=== PATIENT | female | born 1970 | race Caucasian/White ===

== ENCOUNTER 2018-03-22 14:06 | Emergency (ER) | payer OTHER, MEDICAID, SELFPAY ==
[2018-03-22 14:08] VITALS: BP 128/80; PULSE 91; RESP 16; TEMP 37.2; O2SAT 100
--- NOTE | 2018-03-22 14:18 | ED_ITS ---
HPI - Back Pain/Injury <MARGUERITE Bell - Last Filed: 03/22/18 22:07> General Chief Complaint: Back Pain/Injury Stated Complaint: SLIPPED DOWN STAIRS Time Seen by Provider: 03/22/18 14:18 Source: patient Mode of arrival: ambulatory History of Present Illness HPI Narrative: 47-year-old female with history of chronic hip pain here for complaint of lower back pain and bilateral hip pain status post falling and slipping on a couple of steps yesterday. She states that she was carrying a laundry basket full of dirty laundry when she slipped on a step causing her to slip off of 2 steps landing on her back side causing pain to her lower back and hips. She is able to ambulate into the emergency room although she does state that ambulating does cause pain. Decreased pain with decreased amount of motion to the lower extremities. She denies any loss of bladder or bowel control. She has good sensation to bilateral legs. No other injuries or concerns. MD Complaint: back pain and fall Related Data Home Medications Medication Instructions Recorded Confirmed cyclobenzaprine 10 mg PO HS PRN 03/22/18 03/22/18 gabapentin [Neurontin] 3 - 4 cap PO BEDTIME PRN 03/22/18 03/22/18 lidocaine [Lidoderm] 1 patch TOPICAL Q12H MDD pain, 03/22/18 03/22/18 moderate Previous Rx's Medication Instructions Recorded tramadol 50 mg tablet 50 mg PO Q6HP PRN #100 tab 02/22/18 hydrocodone-acetaminophen 1 tab PO Q6H PRN #10 tab 03/22/18 Allergies Allergy/AdvReac Type Severity Reaction Status Date / Time citalopram [CITALOPRAM] AdvReac Mild Migraines Verified 03/22/18 14:11 Review of Systems <MARGUERITE Bell - Last Filed: 03/22/18 22:07> Eyes Denies change in vision, Denies eye discharge, Denies irritation and Denies loss of vision ENT Ears, Nose, Mouth, and Throat: Denies change in voice, Denies neck pain and Denies sore throat Cardiovascular Denies chest pain, Denies irregular heart rhythm, Denies lightheadedness, Denies palpitations, Denies dyspnea, Denies dyspnea on exertion and Denies orthopnea Respiratory Denies cough, Denies dyspnea, Denies dyspnea on exertion and Denies wheezing Gastrointestinal Gastrointestinal: Denies abdominal pain, Denies change in bowel habits, Denies diarrhea, Denies nausea and Denies vomiting Genitourinary Denies hematuria, Denies flank pain, Denies urinary incontinence and Denies urinary urgency Musculoskeletal Denies neck pain Comments: Pain to left lumbar paraspinals and bilateral hip status post fall Integumentary/Breasts Denies pruritus, Denies erythema, Denies rash and Denies wounds Neurologic Denies confusion and Denies loss of vision Psychiatric Denies anxiety, Denies confusion, Denies depression, Denies homicidal ideation and Denies suicidal ideation Endocrine Denies palpitations Hematologic/Lymphatic Denies easy bruising Allergic/Immunologic Denies wheezing Exam <MARGUERITE Bell - Last Filed: 03/22/18 22:07> Initial Vital Signs Initial Vital Signs: Vital Signs Temperature 99 F 03/22/18 14:08 Pulse Rate 91 H 03/22/18 14:08 Respiratory Rate 16 03/22/18 14:08 Blood Pressure 128/80 H 03/22/18 14:08 Pulse Oximetry 100 03/22/18 14:08 Const General: cooperative and well developed Nutritional Appearance: well nourished Orientation: alert, awake, oriented x3 and not confused [facility] Mouth: oral mucosae normal and moist mucous membranes Eyes Conjunctivae: conjunctivae normal Sclera: sclerae normal Pupils: PERRL EOM: EOM intact bilaterally Neck Neck: normal visual inspection, trachea midline, No lymphadenopathy, No midline deformity and No JVD Lymphatic: No lymphedema Chest Chest: normal inspection of the chest Resp Effort & Inspection: normal respiratory effort, able to speak in complete sentences, no respiratory distress and no use of accessory muscles Auscultation: clear to auscultation bilaterally, no rales, no rhonchi and no wheezes Cardio Rate: regular rate Rhythm: regular rhythm Heart Sounds: no click, no gallops, no murmurs and no rubs GI Inspection: non-distended Palpation: soft, no hepatosplenomegaly, No guarding, No pulsatile mass and No tender Auscultation: normal bowel sounds Back/Spine/Pelvis Other: Tenderness on palpation to the left lumbar paraspinals. Slight midline tenderness. No signs of trauma no deformities. Distal CMS is intact Skin General: no rashes or lesions noted, No jaundice and No petechiae Extrem Other: Pain to bilateral lateral hips. No signs of trauma. Distal CMS is intact <Oziel Berg DO - Last Filed: 03/23/18 08:05> Initial Vital Signs Initial Vital Signs: Vital Signs Temperature 99 F 03/22/18 14:08 Pulse Rate 91 H 03/22/18 14:08 Respiratory Rate 16 03/22/18 14:08 Blood Pressure 128/80 H 03/22/18 14:08 Pulse Oximetry 100 03/22/18 14:08 Course <MARGUERITE Bell - Last Filed: 03/22/18 22:07> Orders Ordered: Discontinued Medications Hydrocodone Bitart/Acetaminophen ([place] 5/325) 2 tab PO NOW ONE Stop: 03/22/18 14:59 Last Admin: 03/22/18 15:16 Dose: 2 tab Vital Signs - 8 hr 03/22/18 14:08 03/22/18 15:24 Temperature 99 F 97.5 F L Pulse Rate 91 H 73 Respiratory Rate 16 16 Blood Pressure 128/80 H Blood Pressure [Left Arm] 125/79 H Pulse Oximetry 100 100 <Oziel Berg DO - Last Filed: 03/23/18 08:05> Orders Ordered: Discontinued Medications Hydrocodone Bitart/Acetaminophen ([place] 5/325) 2 tab PO NOW ONE Stop: 03/22/18 14:59 Last Admin: 03/22/18 15:16 Dose: 2 tab Vital Signs - 8 hr 03/22/18 14:08 03/22/18 15:24 Temperature 99 F 97.5 F L Pulse Rate 91 H 73 Respiratory Rate 16 16 Blood Pressure 128/80 H Blood Pressure [Left Arm] 125/79 H Pulse Oximetry 100 100 MDM - Back Pain/Injury <MARGUERITE Bell - Last Filed: 03/22/18 22:07> Imaging Data hip and pelvis: Radiologist's impression: PROCEDURE: XR HIP W PEL IF DONE BILAT 2V INDICATIONS: Bilateral hip pain status post fall on stairs TECHNIQUE: AP pelvis with lateral view(s) of the bilateral hip(s). COMPARISON: [facility], CR, PELVIS WITH BILATERAL HIPS, 12/21/2014, 16:34. FINDINGS: Bones: No fractures or dislocations. Pelvic ring appears intact. No suspicious bony lesions. Minimal early degenerative change. Soft tissues: The visualized bowel gas pattern is normal. No suspicious soft tissue calcifications. IMPRESSION: No visualized acute fracture or dislocation. However, if clinical concern and/or pain persist, short interval imaging followup in 7-10 days is recommended , as occult injury cannot be definitively excluded. Dictated by: Consuelo Bruce M.D. on 03/22/2018 at 15:12 Approved by: Consuelo Bruce M.D. on 03/22/2018 at 15:14 lumbar spine: Radiologist's impression: PROCEDURE: CT LUMBAR SPINE WO CON INDICATIONS: Lower back pain status fall on stairs TECHNIQUE: Noncontrast 3 mm thick sections acquired from the T12 level to the sacrum. Sagittal and coronal reformats were constructed. For radiation dose reduction, the following was used: automated exposure control. COMPARISON: [facility], CR, L-SPINE 2-3 VIEWS, 08/19/2010, 10:21. [facility], MR, L-SPINE WITHOUT CONTRAST, 06/24/2009, 13:46. [facility], CR, L-SPINE 2- 3 VIEWS, 06/08/2009, 16:56. FINDINGS: Image quality: Excellent. Bones: There is trace retrolisthesis of L2 on L3, L3 on L4. Minimal multilevel disc space narrowing is present. There is no visualized fracture or dislocation. Mild multilevel disc bulges are present throughout the lumbar spine. There is moderate spinal stenosis at L2-3, moderate to severe L3-4, L4-5. Minimal left foraminal narrowing is present at L2-3, mild left L3-4, moderate bilateral L4-5, mild bilateral L5- S1. Multilevel ligamentum flavum and mild facet hypertrophy are present. Soft tissues: No retroperitoneal masses or hematomas. Visualized aorta is normal in caliber. IMPRESSION: Degenerative changes as noted above. No visualized acute osseous abnormality. Dictated by: Consuelo Bruce M.D. on 03/22/2018 at 15:20 Approved by: Consuelo Bruce M.D. on 03/22/2018 at 15:40 MDM Narrative Medical decision making narrative: Bilateral x-rays of the hip and pelvis along with CT of the lumbar spine was negative for any acute fractures. Signs and symptoms presents as sprain/strain of lower back and hips. [id number] ibuprofen as needed for any discomfort. Small amount of [place] is prescribed for breakthrough pain. Follow up with primary care provider next week. For any worsening symptoms return to the emergency room. Discharge Plan Departure Patient Disposition: Home, Self-Care Clinical Impression: Hip pain, bilateral, Lower back pain Discharge Date/Time: 03/22/18 16:15 Interventions: ED Discharge Assessment Last Done: 03/22/18 16:12 Instructions: DI for Hip Pain Activity Restrictions/Additional Instructions: Bilateral x-rays of the hip and pelvis along with CT of the lumbar spine was negative for any acute fractures. Degenerative changes are seen in both hips and lower back Signs and symptoms presents as sprain/strain of lower back and hips. [id number] ibuprofen as needed for any discomfort. Small amount of [place] is prescribed for breakthrough pain. Follow up with primary care provider next week. Repeat images in 7-10 days if still having pain to rule out occult fracture. For any worsening symptoms return to the emergency room. Prescriptions: New hydrocodone-acetaminophen 5-325 mg tablet 1 tab PO Q6H PRN (Reason: pain) Qty: 10 RF: 0 No Action tramadol 50 mg tablet 50 mg PO Q6HP PRN (Reason: pain) Qty: 100 RF: 1 cyclobenzaprine 10 MG tablet 10 mg PO HS PRN (Reason: pain) RF: 0 lidocaine [Lidoderm] 1 EACH adhesive patch,medicated 1 patch Topical Q12H MDD pain, moderate RF: 0 gabapentin [Neurontin] 300 MG capsule 3 - 4 cap PO BEDTIME PRN (Reason: Pain, Moderate) RF: 0 Referrals: Tiffany Gallagher DO [Primary Care Provider] - <Oziel Berg DO - Last Filed: 03/23/18 08:05> Cosign ED Attending Lucrecia Attestation: I was available for consultation during this patient's emergency department encounter
--- NOTE | 2018-03-22 14:58 | DI.RAD.S_ITS ---
PROCEDURE: XR HIP W PEL IF DONE BILAT 2V INDICATIONS: Bilateral hip pain status post fall on stairs TECHNIQUE: AP pelvis with lateral view(s) of the bilateral hip(s). COMPARISON: [facility], PELVIS WITH BILATERAL HIPS, 12/21/2014, 16:34. FINDINGS: Bones: No fractures or dislocations. Pelvic ring appears intact. No suspicious bony lesions. Minimal early degenerative change. Soft tissues: The visualized bowel gas pattern is normal. No suspicious soft tissue calcifications. IMPRESSION: No visualized acute fracture or dislocation. However, if clinical concern and/or pain persist, short interval imaging followup in 7-10 days is recommended, as occult injury cannot be definitively excluded. Dictated by: Consuelo Bruce M.D. on 03/22/2018 at 15:12 Approved by: Consuelo Bruce M.D. on 03/22/2018 at 15:14
--- NOTE | 2018-03-22 14:58 | DI.CT.S_ITS ---
PROCEDURE: CT LUMBAR SPINE WO CON INDICATIONS: Lower back pain status fall on stairs TECHNIQUE: Noncontrast 3 mm thick sections acquired from the T12 level to the sacrum. Sagittal and coronal reformats were constructed. For radiation dose reduction, the following was used: automated exposure control. COMPARISON: [facility], CR, L-SPINE 2-3 VIEWS, 08/19/2010, 10:21. [facility], MR, L-SPINE WITHOUT CONTRAST, 06/24/2009, 13:46. [facility], CR, L-SPINE 2-3 VIEWS, 06/08/2009, 16:56. FINDINGS: Image quality: Excellent. Bones: There is trace retrolisthesis of L2 on L3, L3 on L4. Minimal multilevel disc space narrowing is present. There is no visualized fracture or dislocation. Mild multilevel disc bulges are present throughout the lumbar spine. There is moderate spinal stenosis at L2-3, moderate to severe L3-4, L4-5. Minimal left foraminal narrowing is present at L2-3, mild left L3-4, moderate bilateral L4-5, mild bilateral L5-S1. Multilevel ligamentum flavum and mild facet hypertrophy are present. Soft tissues: No retroperitoneal masses or hematomas. Visualized aorta is normal in caliber. IMPRESSION: Degenerative changes as noted above. No visualized acute osseous abnormality. Dictated by: Consuelo Bruce M.D. on 03/22/2018 at 15:20 Approved by: Consuelo Bruce M.D. on 03/22/2018 at 15:40
[2018-03-22] MEDS: HYDROCODONE/ACET 5/325 TABLET 2 TAB PO (15:16)
[2018-03-22 15:24] VITALS: BP 125/79; PULSE 73; RESP 16; TEMP 36.4; O2SAT 100
== END 2018-03-22 16:15 | disposition home or self-care (01) ==
PROVIDERS: Emergency Provider Nurse Practitioner Family; Family Provider Family Medicine; PCP Family Medicine
DX: M54.5 Low back pain (principal); M25.551 Pain in right hip; M25.552 Pain in left hip; W10.8XXA Fall (on) (from) other stairs and steps, initial encounter
CPT/HCPCS: 72131; 73521; 99282; 99283

== ENCOUNTER → 2018-10-16 17:40 | Outpatient (CLI) | payer OTHER, SELFPAY ==
--- NOTE | 2018-10-16 17:48 | DI.MRI.S_ITS ---
PROCEDURE: MR LUMBAR SPINE WO CON INDICATIONS: Lumbar radiculopathy TECHNIQUE: Noncontrast sagittal T1 spin echo and T2 fast echo, sagittal STIR, axial T1 and T2 fast spin echo through the lumbar spine. In cases with scoliosis, additional coronal T2 fast spin echo may be performed. COMPARISON: [facility], CR, L-SPINE 2-3 VIEWS, 06/08/2009, 16:56. [facility], MR, L-SPINE WITHOUT CONTRAST, 06/24/2009, 13:46. FINDINGS: Image quality: Excellent. Alignment and Curvature: Dextrocurvature of the lumbar spine as before. Bone Marrow: Patchy diffuse loss of the normal marrow fat signal raising possibility of chronic anemia although recommend correlation with laboratory data. No acute vertebral body compression fractures. Spinal Cord: Conus medullaris terminates at the L2 level. Visualized cord demonstrates normal signal and size. Paraspinous Soft Tissues: No paravertebral masses. L1-L2: Mild broad-based posterior disc bulge bilateral facet disease. Minimal canal narrowing. No foraminal stenosis.. L2-L3: Mild broad-based posterior disc bulge, posterior annular fissure and bilateral facet disease. Mild canal narrowing. Lateral recesses appear grossly patent. Mild bilateral foraminal stenoses, unchanged. L3-L4: Mild broad-based posterior disc bulge and bilateral facet arthropathy. Minimal central canal narrowing. Partial effacement of the right lateral recess, which is mildly more asymmetric compared to the previous study. No definite foraminal stenosis. L4-L5: Broad-based posterior disc bulge and mild facet arthropathy. Asymmetric appearing partial effacement of the right lateral recess although this is probably unchanged. Mild bilateral foraminal narrowing, no interval change. L5-S1: Broad-based posterior disc bulge and bilateral facet disease. No definite central canal narrowing. The lateral recesses appear grossly patent. Mild bilateral foraminal stenoses (left greater than right), without definite interval change. IMPRESSION: Minimal progression in right L3-L4 subarticular narrowing since the prior study dated 06/24/09. Elsewhere, grossly unchanged examination with no high grade canal stenosis. No high-grade foraminal stenosis. Asymmetric partial effacement of the right L4-L5 lateral recess although this appears grossly unchanged. Dextrocurvature as before. Dictated by: Beny Bartlett M.D. on 10/17/2018 at 10:08 Approved by: Beny Bartlett M.D. on 10/17/2018 at 10:18
== END ==
PROVIDERS: Family Provider Family Medicine; PCP Family Medicine; Visit Provider Physical Medicine & Rehabilitation
DX: M51.16 Intervertebral disc disorders with radiculopathy, lumbar region (principal); M51.17 Intervertebral disc disorders with radiculopathy, lumbosacral region; M47.26 Other spondylosis with radiculopathy, lumbar region; M47.27 Other spondylosis with radiculopathy, lumbosacral region; M48.061 Spinal stenosis, lumbar region without neurogenic claudication; M48.07 Spinal stenosis, lumbosacral region
CPT/HCPCS: 72148

== ENCOUNTER → 2019-02-20 12:37 | Outpatient (CLI) | payer OTHER, MEDICAID, SELFPAY ==
--- NOTE | 2019-02-20 | DI.MRI.S_ITS ---
PROCEDURE: MR HIP RT W CON INDICATIONS: Pain in right hip TECHNIQUE: After the administration of 10 mL of dilute intra-articular Gadolinium contrast, coronal STIR of the bony pelvis; coronal and oblique axial T1 spin echo with fat saturation, axial T2 fast spin echo with fat saturation, sagittal T1 spin echo with and without fat saturation of the involved hip. COMPARISON: [facility], CR, XR HIP W PEL IF DONE BILAT 2V, 03/22/2018, 14:40. FINDINGS: Image quality: Excellent. Bones and joints: Bone marrow of the pelvic ring and proximal femurs demonstrate normal overall signal. No intraosseous lesions or fractures. No avascular necrosis of the femoral head. The visualized lower lumbar spine appears normally aligned. The ligamental, neck, and labral plicae appear normal where visualized. Tendons and ligaments: The gluteus medius and minimus tendons appear intact, without associated muscle atrophy. There is minimal peritendinous edema distally at the greater trochanter. The nearby proximal iliotibial band also appears intact. The iliopsoas tendon appears intact, without adjacent bursal fluid collections or evidence for impingement syndrome. The origin of the hamstring tendon is intact at the ischial tuberosity, as well as the associated sacrotuberous ligament. The straight and reflected heads of the rectus femoris muscle origin appear intact, as well as the conjoint tendon. The ligamentum teres appears intact where visualized. Labrum and cartilage: There is irregular tearing of the anterosuperior and anterior labrum. Cartilage surface of the femoral head appears preserved in thickness.. No paralabral cysts. There is mild focal bony prominence of the anterior femoral head-neck junction. The alpha angle of the femur appears increased at greater than 55 degrees. Soft tissues: Visualized muscles demonstrate normal bulk and internal signal. Quadratus femoris muscle demonstrates no internal edema to suggest ischiofemoral impingement. The proximal sciatic neurovascular bundle appears normal adjacent to the hamstring tendons. No free pelvic fluid. Bladder wall thickness is normal. Genitourinary structures and bowel loops appear normal where visualized. IMPRESSION: 1. Irregular tearing of the anterosuperior and anterior labrum. 2. Focal bony prominence at the anterior femoral head-neck junction with associated increased alpha angle. 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 Dictated by: Donnie Ervin M.D. on 02/20/2019 at 16:21 Approved by: Donnie Ervin M.D. on 02/20/2019 at 16:30
--- NOTE | 2019-02-20 | DI.RAD.S_ITS ---
PROCEDURE: FL HIP INJECTION MR/CT RT INDICATIONS: Pain in right hip TECHNIQUE: The indications, alternatives, benefits, risks, and complications of the procedure were explained to the patient. Written informed consent was obtained and placed in the chart. The hip was examined fluoroscopically with the legs fixed in slight internal rotation, and a site for needle placement chosen for entry into the hip joint from an anterior approach. Care was taken to locate the common femoral artery and vein beforehand. The skin was prepped and draped in a sterile fashion, and 1% Lidocaine infiltrated from skin down to joint capsule. A spinal needle was inserted into the joint, and a small amount of iodinated contrast media injected to confirm intra-articular placement of the needle tip. This was followed by approximately 10 mL dilute solution of a gadolinium containing MR contrast agent. The needle was removed and a dressing was applied. The patient was given postprocedural instructions and sent to the MR suite for imaging. FINDINGS: A single fluoroscopic spot image demonstrates intra-articular location of injected iodinated contrast. IMPRESSION: Successful fluoroscopically guided administration of dilute Gadolinium solution into the hip joint for MR arthrogram. Dictated by: Nba Warner M.D. on 02/20/2019 at 14:31 Approved by: Nba Warner M.D. on 02/20/2019 at 14:31
== END ==
PROVIDERS: Family Provider Family Medicine; PCP Family Medicine; Visit Provider Family Medicine Sports Medicine
DX: M25.551 Pain in right hip (principal); S73.191A Other sprain of right hip, initial encounter
CPT/HCPCS: 27093; 73722; 77002

== ENCOUNTER → 2019-08-11 11:45 | Outpatient (CLI) | payer OTHER, MEDICAID, SELFPAY ==
--- NOTE | 2019-08-11 11:48 | DI.RAD.S_ITS ---
PROCEDURE: XR HUMERUS LT 2V INDICATIONS: Fall 1 week ago, severe pain, h/o fracture TECHNIQUE: 2 views of the humerus were acquired. COMPARISON: None. FINDINGS: Bones: No humerus fracture. Mild cortical irregularity involving the radial head potentially age-indeterminate nondisplaced radial head fracture Soft tissues: No suspicious soft tissue calcifications. IMPRESSION: No humerus fracture identified. Cortical irregularity involving the radial head which could be further assessed with dedicated elbow radiographs as clinically warranted. Please correlate clinically with point tenderness. Dictated by: Beny Bartlett M.D. on 08/11/2019 at 13:18 Approved by: Beny Bartlett M.D. on 08/11/2019 at 13:20
== END ==
PROVIDERS: PCP Family Medicine; Visit Provider Family Medicine
DX: M79.622 Pain in left upper arm (principal)
CPT/HCPCS: 73060

== ENCOUNTER → 2019-09-01 13:46 | Outpatient (CLI) | payer OTHER, MEDICAID, SELFPAY ==
--- NOTE | 2019-09-01 13:48 | DI.RAD.S_ITS ---
PROCEDURE: FL SHOULDER INJECTION MR/CT LT INDICATIONS: fall on 08/01 TECHNIQUE: The indications, alternatives, benefits, risks, and complications of the procedure were explained to the patient. Written informed consent was obtained and placed in the chart. The shoulder was examined fluoroscopically and a site for needle placement chosen for entry into the glenohumeral joint from an anterior approach. The skin was prepped and draped in a sterile fashion, and 1% lidocaine infiltrated from skin down to joint capsule. A spinal needle was inserted into the glenohumeral joint, and a small amount of iodinated contrast media injected to confirm intra-articular placement of the needle tip. This was followed by approximately 12 mL dilute solution of a gadolinium containing MR contrast agent. The needle was removed and a dressing was applied. The patient was given postprocedural instructions and sent to the MR suite for MR imaging. FINDINGS: A single fluoroscopic spot image demonstrates intra-articular location of injected iodinated contrast. IMPRESSION: Successful left shoulder joint injection for MR arthrography. Dictated by: Nba Warner M.D. on 09/01/2019 at 15:46 Approved by: Nba Warner M.D. on 09/01/2019 at 15:46
--- NOTE | 2019-09-01 13:48 | DI.MRI.S_ITS ---
PROCEDURE: MR SHOULDER LT W CON INDICATIONS: Left shoulder pain TECHNIQUE: After the administration of 12 mL of dilute intra-articular Gadolinium contrast, oblique coronal T1 and T2 spin echo with fat saturation, oblique sagittal T1 spin echo with and without fat saturation, oblique sagittal T2 fast spin echo with fat saturation, axial T1 spin echo with fat saturation through the shoulder. COMPARISON: None. FINDINGS: Image quality: Excellent. Rotator cuff: The supraspinatus, infraspinatus, and subscapularis tendons appear intact throughout. No significant rotator cuff muscle atrophy on sagittal images. Bones and bursae: No bone marrow contusions or fractures. Mild acromioclavicular joint osteoarthritic changes are seen. Capsule and soft tissues: There is signal abnormality and contrast extension into superior anterior labrum at one to 2:00 position suggestive of superior anterior labral tear. Similar area of signal abnormality and contrast extension is also seen in anterior inferior labrum and 5 to 6:00 position. The glenohumeral ligaments appear intact. The long head of the biceps tendon demonstrates normal location and morphology. The rotator interval appears normal, without fibrosis. The coracohumeral ligament is of normal thickness. No intra-articular bodies. IMPRESSION: 1. Finding is concerning for a superior anterior labral tear at 1 to 2:00 position. There is also suggestion of anterior inferior labral tear at 5 to 6:00 position. 2. Rotator cuff tendons are intact. 3. Mild acromioclavicular joint osteoarthritis. Dictated by: Adan Wei M.D. on 09/02/2019 at 11:04 Approved by: Adan Wei M.D. on 09/02/2019 at 11:16
== END ==
PROVIDERS: PCP Family Medicine; Visit Provider Family Medicine
DX: M25.512 Pain in left shoulder (principal); M19.012 Primary osteoarthritis, left shoulder
CPT/HCPCS: 23350; 73222; 77002

== ENCOUNTER 2020-11-17 13:45 | Emergency (ER) | payer OTHER, MEDICAID, SELFPAY ==
[2020-11-17] VITALS (18 sets, daily range): BP systolic 120–182; BP diastolic 63–110; PULSE 70–78; RESP 8–22; TEMP 36.1–36.8; O2SAT 97–100
--- NOTE | 2020-11-17 14:01 | DI.RAD.S_ITS ---
PROCEDURE: XR CHEST 1V INDICATIONS: chest pain TECHNIQUE: One view of the chest was acquired. COMPARISON: None. FINDINGS: Surgical changes and devices: None. Lungs and pleura: Lungs are clear. No pleural effusions or pneumothorax. Mediastinum: Mediastinal contours appear normal. Heart size is normal. Bones and chest wall: No suspicious bony lesions. Overlying soft tissues appear unremarkable. IMPRESSION: No acute cardiopulmonary disease process. Dictated by: Zabrina Perkins MD, PhD on 11/17/2020 at 14:22 Approved by: Zabrina Perkins MD, PhD on 11/17/2020 at 14:23
[2020-11-17 14:06] LABS: Eosinophils Percent Auto 0.8 % (2-4); Hematocrit 37.7 % (36-46); Hemoglobin 12.6 g/dL (12.0-16.0); Lymphocytes Percent Auto 29.7 % (25-40); Mean Corpuscular HGB Conc 33.6 % (30-36); Mean Corpuscular Hemoglobin 28.7 PG (26-34); Mean Corpuscular Volume 85.5 fL (80-100); Monocytes Percent Auto 6.8 % (3-14); Neutrophils Percent Auto 61.7 % (50-75); Platelet Count 270 X10^3/uL (150-400); Red Cell Distribution Width 13.3 % (11.6-14.8); White Blood Cell Count 8.2 X10^3/uL (4.5-11.0)
[2020-11-17 14:07] LABS: Add Manual Diff / Slide Review NO; Basophils Absolute Auto 100 /uL (0-100); Eosinophils Absolute Auto 100 /uL (0-450); Lymphocytes Absolute Auto 2500 /uL (1100-4500); Monocytes Absolute Auto 600 /uL (0-900); Neutrophils Absolute Auto 5100 /uL (1500-7000)
--- NOTE | 2020-11-17 14:08 | PC.NURSE ---
c/o headache since Sunday, no trauma. Not on blood thinners. Neuro intact.
[2020-11-17 14:12] LABS: Prothrombin Time 11.5 SECONDS (10.1-12.7)
[2020-11-17 14:15] LABS: PTT Partial Thromboplastin Tim 33 SECONDS (26.4-36.2)
[2020-11-17 14:19] LABS: Alanine Aminotransferase 25 IU/L (<35); Albumin 4.6 g/dL (3.5-5.0); Albumin Globulin Ratio 1.5 (1.0-2.8); Alkaline Phosphatase 82 U/L (38-126); Aspartate Aminotransferase 33 IU/L (14-36); BUN Creatinine Ratio 22.8 (6-22); Bilirubin Total 0.6 mg/dL (0.2-1.3); Blood Urea Nitrogen 13 mg/dL (7-17); Carbon Dioxide 31 mmol/L (22-32); Chloride 102 mmol/L (98-107); Creatine Kinase 178 U/L (30-135); Estimated Glomerular Filt Rate > 60.0 mL/min (>60); Globulin 3.1 g/dL (1.7-4.1); Glucose 116 mg/dL (70-100); HEMOLYSIS < 15 (0-50); Lipase 58 U/L (23-300); Magnesium 2.1 mg/dL (1.6-2.3); Sodium 140 mmol/L (137-145); Total Protein 7.7 g/dL (6.3-8.2)
--- NOTE | 2020-11-17 14:21 | ED.GENADULT ---
HPI - General Adult General Chief complaint: Hypertension Stated complaint: blood pressure high Time Seen by Provider: 11/17/20 13:59 Source: patient Mode of arrival: Ambulatory Limitations: no limitations History of Present Illness HPI narrative: This is a 50-year-old female comes to the emergency department complaint of hypertension and headache since Sunday, 5 days ago. Patient states she woke up with a headache it has been pulsating kind of behind both eyes. She does get some photophobia, she has had some mild nausea today but has not had any emesis. She has tried Tylenol been taking it fairly regularly without any resolution of symptoms. She has had headaches remotely in the past but no history of migraines. She does not state that this is somewhat similar to those episodes. She did have some improvement with a heating pad behind her shoulders. She has a little bit of discomfort from her shoulder after having a orthopedic visit today for follow-up for a AC shoulder compression which was done in August. Patient states her blood pressure was elevated there 164/98 followed by 157/97 he at her office visit. She returned home, contacted her physician and they recommended she come for eval. She has had no fevers, no chills, no cold cough or congestive symptoms. No chest pain or pressure, no shortness of breath, she has had nausea but no emesis. No urinary symptoms, no issues with bowel movements. She denies any numbness, weakness or tingling in her extremities no issues with gait or dizziness or vertigo symptoms. She takes tramadol as needed, she is taking gabapentin and Flexeril in the past but has not been requiring them and occasionally uses an edible THC at night for sleep. She has had hysterectomy, hip surgery as well as her shoulder surgery. No tobacco, occasional alcohol, no illicit. Her last dose of Tylenol was a 1000 mg at 8:00 a.m. she has been told that her blood pressures been mildly elevated in the past but has not been instructed to start antihypertensives. She states it has not been in the 150 range which it is today in the emergency department. Related Data Previous Rx's Medication Instructions Recorded lidocaine 5 % topical patch 1 patch TOPICAL Q12H #15 each MDD 04/04/19 pain, moderate gabapentin 300 mg capsule 900 mg PO BEDTIME #90 cap 01/02/20 cyclobenzaprine 10 mg tablet See Rx Instructions .ROUTE 10/15/20 .COMPLEX #90 tab tramadol 50 mg tablet 50 mg PO BID PRN #30 tab 10/15/20 duloxetine 30 mg capsule,delayed 60 mg PO DAILY #60 cap 10/26/20 release hohiarymes-gnlfsrdgchtsk-adep 1 cap PO Q8H PRN #10 cap 11/17/20 [Fioricet] fbqvdnwduw-tygnasuuanjvc-zega 1 cap PO Q8H PRN #10 cap 11/17/20 [Fioricet] Allergies Allergy/AdvReac Type Severity Reaction Status Date / Time citalopram [CITALOPRAM] AdvReac Mild Migraines Verified 07/10/19 15:26 Review of Systems Review of Systems ROS Unobtainable: All systems reviewed & are unremarkable except as noted in HPI and below Patient History Medical History Arm pain, right Chronic back pain (1999) Chronic headaches CTS (carpal tunnel syndrome) (2000) Depression (2004) Dysfunctional uterine bleeding Migraines Neck pain Pancreatitis (2005) Scoliosis (1998) Surgical History Anesthesia complication History of surgery on arm (06/2010) Status post carpal tunnel release (03/2008) Status post endometrial ablation (08/2013) Status post hysterectomy with oophorectomy (01/2014) Status post laparoscopic cholecystectomy (2004) Status post subacromial decompression (1999) Status post tubal ligation (12/2004) Family History Father Age: 86 Hypertension Cancer Sister Breast cancer Grandmother Age: 89 Breast cancer Mother Age: 79 Stroke Hypertension Hyperlipidemia Osteoporosis Grandmother Breast cancer H/O bilateral mastectomy Family/Other Breast cancer Social History marital status: occupational status: employed Smoking Status: Never smoker Smoking Status: Never smoker alcohol intake frequency: 0-2 drinks per day Substance Use Type: does not use Exam Narrative Exam Narrative: GEN: well nourished, well appearing female, alert and oriented x 3, patient appears to be in mild distress. HEENT: Atraumatic, pupils are equal round reactive to light, extraocular movements are intact, no nystagmus, nares are clear, TMs are clear with no fluid, there is no conjunctival pallor. Throat is clear without any exudates, erythema, tonsillar enlargement or uvular deviation, no facial droop HEART: Regular rate and rhythm without murmur, clicks, rubs. LUNGS:Lungs clear to auscultation, no wheezes, rales, crackles, chest moves symmetrically ABD:bowel sounds normal, soft, non-tender, no guarding, rebound, rigidity, no masses noted, no hepatosplenomegaly :No CVA tenderness MSCL: Non-tender, no muscle atrophy, muscles strength 5/5 upper and lower extremities, full range of motion, normal gait NEURO:CN 2-12 intact, sensation normal, finger nose finger test normal, heel lubin test normal SKIN: Patient has 3 or 4 small areas of erythema which are excoriated on her back, no signs of infection. No other rashes or skin changes appreciated Initial Vital Signs Initial Vital Signs: Vital Signs Temperature 96.9 F L 11/17/20 13:54 Pulse Rate 77 11/17/20 13:54 Respiratory Rate 18 11/17/20 13:54 Blood Pressure 182/110 H 11/17/20 13:54 Pulse Oximetry 100 11/17/20 13:54 Course Orders Ordered: ED Orders 11/17/20 13:18 Complete Blood Count AUTO DIFF Stat Comprehensive Metabolic Panel Stat Lipase Stat Magnesium Stat Partial Thromboplastin Time Stat Prothrombin Time INR Stat TSH w/ Reflex to FT4 Stat Troponin & CK Cardiac Panel Stat 11/17/20 13:56 EKG-12 Lead Stat 11/17/20 14:01 XR chest 1V Stat 11/17/20 14:40 CT head/brain wo con Stat Discontinued Medications Sodium Chloride (Normal Saline 0.9%) 1,000 mls @ 1,000 mls/hr IV BOLUS ONE Stop: 11/17/20 15:39 Last Infusion: 11/17/20 16:35 Dose: 0 mls/hr Documented by: Admin: 11/17/20 15:30 Dose: 1,000 mls/hr Documented by: KEREN Ketorolac Tromethamine (Ketorolac 60 Mg/2 Ml Vial) 30 mg IV NOW ONE Stop: 11/17/20 15:56 Last Admin: 11/17/20 16:03 Dose: 30 mg Documented by: ABDIRAHMAN Ondansetron HCl (Ondansetron 4 Mg/2 Ml Inj) 4 mg IV NOW ONE Stop: 11/17/20 14:41 Last Admin: 11/17/20 15:27 Dose: 4 mg Documented by: KEREN Potassium Chloride (Potassium Chloride 20 Meq Tab) 40 meq PO NOW ONE Stop: 11/17/20 14:23 Last Admin: 11/17/20 15:27 Dose: 40 meq Documented by: KEREN Reevaluation(s) Reevaluation #1: headache still present,tolerating potassium. Time: 15:56 Reevaluation #2: Improving not resolved. Patient does feel comfortable returning home pressure is slightly better. Time: 16:51 Vital Signs Vital signs: Vital Signs - 8 hr 11/17/20 13:54 11/17/20 14:02 11/17/20 14:03 Temperature 96.9 F L Pulse Rate 77 73 72 Respiratory Rate 18 21 15 Blood Pressure 182/110 H 153/82 H Pulse Oximetry 100 99 11/17/20 14:15 11/17/20 14:30 11/17/20 14:45 Temperature Pulse Rate 71 78 75 Respiratory Rate 12 14 22 Blood Pressure 154/91 H 158/96 H Pulse Oximetry 97 11/17/20 14:51 11/17/20 15:00 11/17/20 15:15 Temperature Pulse Rate 70 75 76 Respiratory Rate 12 15 Blood Pressure 159/90 H 138/82 120/63 Pulse Oximetry 11/17/20 15:30 11/17/20 15:45 11/17/20 16:00 Temperature Pulse Rate 74 78 73 Respiratory Rate 14 22 16 Blood Pressure 144/79 H 157/86 H 127/78 Pulse Oximetry 100 100 98 11/17/20 16:15 11/17/20 16:30 11/17/20 16:50 Temperature Pulse Rate 75 73 77 Respiratory Rate 13 16 14 Blood Pressure 129/83 137/88 Pulse Oximetry 98 11/17/20 16:51 11/17/20 17:00 11/17/20 17:25 Temperature 98.2 F Pulse Rate 74 73 71 Respiratory Rate 8 L 10 L 16 Blood Pressure 148/81 H 120/70 Pulse Oximetry 100 100 98 Medical Decision Making Lab Data Lab results reviewed: Yes I reviewed the patient's lab results. Result diagrams: 11/17/20 13:18 11/17/20 13:18 Labs: Lab Results 11/17/20 11/17/20 11/17/20 Range/Units 13:18 13:18 13:18 WBC 8.2 (4.5-11.0) X10^3/uL RBC 4.40 (4.0-5.2) X10^6/uL Hgb 12.6 (12.0-16.0) g/dL Hct 37.7 (36-46) % MCV 85.5 (80-100) fL MCH 28.7 (26-34) PG MCHC 33.6 (30-36) % RDW 13.3 (11.6-14.8) % Plt Count 270 (150-400) X10^3/uL Neut % (Auto) 61.7 (50-75) % Lymph % (Auto) 29.7 (25-40) % [place] % (Auto) 6.8 (3-14) % Eos % (Auto) 0.8 L (2-4) % Baso % (Auto) 1.0 (0-2) % Neut # (Auto) 5100 (5389-9684) /uL Lymph # (Auto) 2500 (2508-5281) /uL [place] # (Auto) 600 (0-900) /uL Eos # (Auto) 100 (0-450) /uL Baso # (Auto) 100 (0-100) /uL PT 11.5 (10.1-12.7) SECONDS INR 1.0 (0.9-1.3) APTT 33 (26.4-36.2) SECONDS Sodium 140 (137-145) mmol/L Potassium 3.0 L (3.4-5.1) mmol/L Chloride 102 (98-107) mmol/L Carbon Dioxide 31 (22-32) mmol/L BUN 13 (7-17) mg/dL Creatinine 0.57 (0.52-1.04) mg/dL Estimated GFR > 60.0 (>60) mL/min BUN/Creatinine Ratio 22.8 H (6-22) Glucose 116 H (70-100) mg/dL Calcium 9.0 (8.4-10.2) mg/dL Magnesium 2.1 (1.6-2.3) mg/dL Total Bilirubin 0.6 (0.2-1.3) mg/dL AST 33 (14-36) IU/L ALT 25 (<35) IU/L Alkaline Phosphatase 82 (38-126) U/L Total Creatine Kinase 178 H (30-135) U/L CK-MB (CK-2) 0.96 (<2.37) ng/mL CK-MB (CK-2) Rel Index 0.5 L (1.5-5.0) % Troponin I < 0.012 (0.01-0.034) ng/mL Total Protein 7.7 (6.3-8.2) g/dL Albumin 4.6 (3.5-5.0) g/dL Globulin 3.1 (1.7-4.1) g/dL Albumin/Globulin Ratio 1.5 (1.0-2.8) Lipase 58 (23-300) U/L TSH (0.47-4.68) uIU/mL 11/17/20 Range/Units 13:18 WBC (4.5-11.0) X10^3/uL RBC (4.0-5.2) X10^6/uL Hgb (12.0-16.0) g/dL Hct (36-46) % MCV (80-100) fL MCH (26-34) PG MCHC (30-36) % RDW (11.6-14.8) % Plt Count (150-400) X10^3/uL Neut % (Auto) (50-75) % Lymph % (Auto) (25-40) % [place] % (Auto) (3-14) % Eos % (Auto) (2-4) % Baso % (Auto) (0-2) % Neut # (Auto) (8484-6773) /uL Lymph # (Auto) (1360-6441) /uL [place] # (Auto) (0-900) /uL Eos # (Auto) (0-450) /uL Baso # (Auto) (0-100) /uL PT (10.1-12.7) SECONDS INR (0.9-1.3) APTT (26.4-36.2) SECONDS Sodium (137-145) mmol/L Potassium (3.4-5.1) mmol/L Chloride (98-107) mmol/L Carbon Dioxide (22-32) mmol/L BUN (7-17) mg/dL Creatinine (0.52-1.04) mg/dL Estimated GFR (>60) mL/min BUN/Creatinine Ratio (6-22) Glucose (70-100) mg/dL Calcium (8.4-10.2) mg/dL Magnesium (1.6-2.3) mg/dL Total Bilirubin (0.2-1.3) mg/dL AST (14-36) IU/L ALT (<35) IU/L Alkaline Phosphatase (38-126) U/L Total Creatine Kinase (30-135) U/L CK-MB (CK-2) (<2.37) ng/mL CK-MB (CK-2) Rel Index (1.5-5.0) % Troponin I (0.01-0.034) ng/mL Total Protein (6.3-8.2) g/dL Albumin (3.5-5.0) g/dL Globulin (1.7-4.1) g/dL Albumin/Globulin Ratio (1.0-2.8) Lipase (23-300) U/L TSH 1.46 (0.47-4.68) uIU/mL Imaging Data Chest x-ray: Radiologist's Impression: Marissa Das 50 F [address] [id number] ReportSigned Patient: Marissa Das [facility]#: [id number]: 1970Acct:[id number]/Sex: 50 / FDate of Service: 11/17/20Loc: EDAccession Number: [id number] Procedure: XR chest 1V Ordering Provider: Noemy Figueroa D.O. PROCEDURE: XR CHEST 1V INDICATIONS: chest pain TECHNIQUE: One view of the chest was acquired. COMPARISON: None. FINDINGS: Surgical changes and devices: None. Lungs and pleura: Lungs are clear. No pleural effusions or pneumothorax. Mediastinum: Mediastinal contours appear normal. Heart size is normal. Bones and chest wall: No suspicious bony lesions. Overlying soft tissues appear unremarkable. IMPRESSION: No acute cardiopulmonary disease process. Dictated by: Zabrina Perkins MD, PhD on 11/17/2020 at 14:22 Approved by: Zabrina Perkins MD, PhD on 11/17/2020 at 14:23 ECG Data Attestation: I personally reviewed and interpreted this ECG as follows: Prior ECG tracings: available for review Interpretation: Sinus rhythm rate of 69 IA interval 143 QRS of 113 and QTC of 451. No acute ST changes appreciated. Patient has an EKG from 02/16/2017 which appears similar. MDM Narrative Medical decision making narrative: This is a 50-year-old female who comes with complaint of prolonged headache somewhat migraine type features but with no history of consistent migraines. She has had some improvement with heating pad. She was seen at orthopedic surgery today and noted that her blood pressure was in the 160-150 range diastolic, she contacted her physician and she has also had some mild nausea on the drive home from her orthopedic surgery appointment and was instructed for evaluation. EKG, chest x-ray and labs do not show any major abnormalities. Head CT shows no acute change. Patient did have some increased discomfort of her left shoulder after manipulation at her orthopedic appointment this is potentially cause of her hypertension as well as her headache although unclear if headache developed from hypertension or she has felt hypertension response to the stress and discomfort of her headache. Discharge Plan Departure Patient Disposition: Home Clinical Impression: Headache Activity Restrictions/Additional Instructions: Follow up with Dr. Gallagher this week for recheck of your blood pressure. If you continue to have persistently high blood pressures they may wish to start you on oral medication. It is unclear if your blood pressure is elevated today because of a headache that is causing her blood pressure elevated verses that she may have little bit headache from elevated blood pressure. In the future do not take more than 3000 mg of acetaminophen in 24 hours. You may take prescribed medication 1 tablet every 8 hours as needed for headache. This medication does have Tylenol in it so please be aware of that. Prescription to [facility] in [place] Return to the ER for fevers greater than 100.4 F, rapidly worsening or severe headaches, vision changes, difficulty with speech, movement, facial droop, persistent vomiting, or other new or concerning symptoms. Prescriptions: New edqcafluow-urmjxddcxllkr-dnzw [Fioricet] 50-300-40 mg capsule 1 cap PO Q8H PRN (Reason: pain) Qty: 10 RF: 0 risyxpomzs-ivbcpdmhyklas-mndd [Fioricet] 50-300-40 mg capsule 1 cap PO Q8H PRN (Reason: pain) Qty: 10 RF: 0 No Action lidocaine [Lidoderm] 5 % adhesive patch,medicated 1 patch Topical Q12H MDD pain, moderate Qty: 15 RF: 6 gabapentin [Neurontin] 300 mg capsule 900 mg PO BEDTIME Qty: 90 RF: 5 tramadol 50 mg tablet 50 mg PO BID PRN (Reason: pain) Qty: 30 RF: 0 cyclobenzaprine 10 mg tablet See Rx Instructions .ROUTE .COMPLEX Qty: 90 RF: 0 duloxetine 30 mg capsule,delayed release(DR/EC) 60 mg PO DAILY Qty: 60 RF: 2 Referrals: Tiffany Gallagher DO [Primary Care Provider] -
[2020-11-17 14:29] LABS: Troponin I < 0.012 ng/mL (0.01-0.034)
[2020-11-17 14:34] LABS: CKMB % Relative Index 0.5 % (1.5-5.0); Creatine Kinase MB 0.96 ng/mL (<2.37)
--- NOTE | 2020-11-17 14:40 | DI.CT.S_ITS ---
PROCEDURE: CT HEAD/BRAIN WO CON INDICATIONS: headache since Sat, migraine like but no history, mod htn TECHNIQUE: Noncontrast 4.5 mm thick angled axial sections acquired from the foramen magnum to the vertex, with coronal and sagittal reformats. For radiation dose reduction, the following was used: automated exposure control, adjustment of mA and/or kV according to patient size. COMPARISON: None. FINDINGS: Image quality: Excellent. CSF spaces: Basal cisterns are patent. No extra-axial fluid collections. Ventricles are normal in size and shape. Brain: No midline shift. No intracranial masses or hemorrhage. Diaz-white matter interface is normal. Skull and face: Calvarium and visualized facial bones are intact, without suspicious lesions. Sinuses: Visualized sinuses and mastoids are clear. IMPRESSION: No acute intracranial disease process. Dictated by: Zabrina Perkins MD, PhD on 11/17/2020 at 14:59 Approved by: Zabrina Perkins MD, PhD on 11/17/2020 at 15:00
[2020-11-17 14:55] LABS: TSH w/ Reflex to FT4 1.46 uIU/mL (0.47-4.68)
[2020-11-17] MEDS: POTASSIUM CHLORIDE 20 MEQ TAB 40 MEQ PO (15:27)
[2020-11-17] MEDS: ONDANSETRON 4 MG/2 ML INJ IV (15:27)
[2020-11-17] MEDS: SODIUM CHLORIDE 0.9% 1,000 ML 1000 ML IV (15:30)
[2020-11-17] MEDS: KETOROLAC 60 MG/2 ML VIAL 30 MG IV (16:03)
== END 2020-11-17 17:27 | disposition home or self-care (01) ==
PROVIDERS: Emergency Provider Emergency Medicine; PCP Family Medicine
DX: R51.9 Headache, unspecified (principal); I10 Essential (primary) hypertension; R11.0 Nausea; R07.9 Chest pain, unspecified
CPT/HCPCS: 36415; 70450; 71045; 80053; 82550; 82553; 83690; 83735; 84443; 84484; 85025; 85610; 85730; 93005; 93010; 96361; 96374; 96375; 99283; 99284; J1885; J2405

== ENCOUNTER 2020-11-18 11:10 | Emergency (ER) | payer OTHER, MEDICAID, SELFPAY ==
[2020-11-18 11:13] VITALS: BP 189/93; PULSE 73; RESP 16; TEMP 36.8; O2SAT 100; BMI 27.9
[2020-11-18 11:30] VITALS: BP 135/86; PULSE 70; RESP 22; O2SAT 100
[2020-11-18] MEDS: SODIUM CHLORIDE 0.9% 1,000 ML 1000 ML IV (11:36)
[2020-11-18] MEDS: diphenhydrAMINE 50 MG/ML VIAL 25 MG IV (11:37)
[2020-11-18] MEDS: METOCLOPRAMIDE 10 MG/2 ML INJ IV (11:37)
[2020-11-18] MEDS: KETOROLAC 60 MG/2 ML VIAL 30 MG IV (11:37)
[2020-11-18 11:49] VITALS: PULSE 80; RESP 18; O2SAT 100
[2020-11-18 11:54] LABS: Add Manual Diff / Slide Review NO; Basophils Absolute Auto 100 /uL (0-100); Basophils Percent Auto 0.8 % (0-2); Eosinophils Absolute Auto 100 /uL (0-450); Eosinophils Percent Auto 1.3 % (2-4); Hematocrit 39.8 % (36-46); Hemoglobin 13.2 g/dL (12.0-16.0); Lymphocytes Absolute Auto 2600 /uL (1100-4500); Lymphocytes Percent Auto 33.7 % (25-40); Mean Corpuscular Hemoglobin 28.7 PG (26-34); Mean Corpuscular Volume 86.8 fL (80-100); Monocytes Absolute Auto 600 /uL (0-900); Monocytes Percent Auto 7.4 % (3-14); Neutrophils Absolute Auto 4300 /uL (1500-7000); Neutrophils Percent Auto 56.8 % (50-75); Platelet Count 257 X10^3/uL (150-400); Red Blood Cell Count 4.59 X10^6/uL (4.0-5.2); Red Cell Distribution Width 13.7 % (11.6-14.8); White Blood Cell Count 7.6 X10^3/uL (4.5-11.0)
[2020-11-18 12:00] VITALS: BP 120/60; PULSE 77; RESP 17; O2SAT 98
[2020-11-18 12:09] LABS: Alanine Aminotransferase 32 IU/L (<35); Albumin 4.7 g/dL (3.5-5.0); Albumin Globulin Ratio 1.3 (1.0-2.8); Alkaline Phosphatase 90 U/L (38-126); Aspartate Aminotransferase 40 IU/L (14-36); BUN Creatinine Ratio 13.6 (6-22); Bilirubin Total 0.7 mg/dL (0.2-1.3); Blood Urea Nitrogen 8 mg/dL (7-17); Calcium 9.3 mg/dL (8.4-10.2); Carbon Dioxide 31 mmol/L (22-32); Chloride 104 mmol/L (98-107); Estimated Glomerular Filt Rate > 60.0 mL/min (>60); Globulin 3.6 g/dL (1.7-4.1); Glucose 98 mg/dL (70-100); HEMOLYSIS < 15 (0-50); Potassium 3.4 mmol/L (3.4-5.1); Sodium 141 mmol/L (137-145); Total Protein 8.3 g/dL (6.3-8.2)
--- NOTE | 2020-11-18 12:12 | ED_ITS ---
HPI - General Adult <MARGUERITE Paul - Last Filed: 11/18/20 16:15> General Chief complaint: Hypertension Stated complaint: headache, high blood pressure Time Seen by Provider: 11/18/20 11:21 Source: patient Mode of arrival: Ambulatory Limitations: no limitations History of Present Illness HPI narrative: 50yo female presents to the emergency department for a worsening headache and high blood pressure. Patient was seen and evaluated in the emergency department for high blood pressure and headache yesterday. She had a chest x-ray, laboratory work, and head CT scan. All within normal limits other than potassium at 3.0. She was given Toradol, Zofran, fluids, and potassium, she was discharged with Fioricet. Patient states she took Fioricet last evening and states that helped her headache. Upon wakening she only took Tylenol as she was scared that if your site would make her drowsy, she went to work this morning. At work she states the headache increased, she describes it as a pounding behind her eyes. She went to the nurse at that time and noticed her blood pressure was elevated. She called her doctor's office and was instructed to be seen in the emergency department again. Patient was originally seen yesterday as she had had a headache for 5-6 days, she has a history of headaches but not migraines. Usually her headaches do not last this long. She was seeing a provider in [place] for a follow-up shoulder surgery that was done in August, they noted her blood pressure to be elevated approximately 164/98. Patient called her provider at that time, her provider was not in the office she was told to be evaluated in the emergency department. Patient denies any other symptoms other than intermittent nausea. She denies any vomiting, double vision, vision loss, chest pain, shortness of breath, dizziness, nausea, vomiting, diarrhea, cough, or any other concerns. She does not take any antihypertensive medications. Related Data Previous Rx's Medication Instructions Recorded lidocaine 5 % topical patch 1 patch TOPICAL Q12H #15 each MDD 04/04/19 pain, moderate gabapentin 300 mg capsule 900 mg PO BEDTIME #90 cap 01/02/20 cyclobenzaprine 10 mg tablet See Rx Instructions .ROUTE 10/15/20 .COMPLEX #90 tab tramadol 50 mg tablet 50 mg PO BID PRN #30 tab 01/15/21 duloxetine 30 mg capsule,delayed 60 mg PO DAILY #60 cap 10/26/20 release ppkidngjcu-wwddnhyqsglzs-blqk 1 cap PO Q8H PRN #10 cap 11/17/20 [Fioricet] suenpulgpx-mnnrovetpkagc-gsms 1 cap PO Q8H PRN #10 cap 11/17/20 [Fioricet] metoclopramide HCl [Reglan] 10 mg PO Q6H PRN #10 tab 11/18/20 Allergies Allergy/AdvReac Type Severity Reaction Status Date / Time citalopram [CITALOPRAM] AdvReac Mild Migraines Verified 11/18/20 11:18 Review of Systems <MARGUERITE Paul - Last Filed: 11/18/20 16:15> Review of Systems Narrative: REVIEW OF SYSTEMS: GENERAL: Denies fever or chills. HENT: No head trauma. Reports headache, see HPI. CARDIOVASCULAR: No chest pain. RESPIRATORY: No shortness of breath or cough. GASTROINTESTINAL: Reports nausea, see HPI. GENITOURINARY: No dysuria. MUSCULOSKELETAL: No pain. INTEGUMENTARY: No rash. Patient History <MARGUERITE Paul - Last Filed: 11/18/20 16:15> Medical History Arm pain, right Chronic back pain (1999) Chronic headaches CTS (carpal tunnel syndrome) (2000) Depression (2004) Dysfunctional uterine bleeding Migraines Neck pain Pancreatitis (2005) Scoliosis (1998) Surgical History Anesthesia complication History of surgery on arm (06/2010) Status post carpal tunnel release (03/2008) Status post endometrial ablation (08/2013) Status post hysterectomy with oophorectomy (01/2014) Status post laparoscopic cholecystectomy (2004) Status post subacromial decompression (1999) Status post tubal ligation (12/2004) Family History Father Age: 86 Hypertension Cancer Sister Breast cancer Grandmother Age: 89 Breast cancer Mother Age: 79 Stroke Hypertension Hyperlipidemia Osteoporosis Grandmother Breast cancer H/O bilateral mastectomy Family/Other Breast cancer Social History marital status: occupational status: employed Smoking Status: Never smoker Smoking Status: Never smoker alcohol intake frequency: 0-2 drinks per day Substance Use Type: does not use Exam <MARGUERITE Paul - Last Filed: 11/18/20 16:15> Initial Vital Signs Initial Vital Signs: Vital Signs Temperature 98.3 F 11/18/20 11:13 Pulse Rate 73 11/18/20 11:13 Respiratory Rate 16 11/18/20 11:13 Blood Pressure 189/93 H 11/18/20 11:13 Pulse Oximetry 100 11/18/20 11:13 PHYSICAL EXAMINATION: GENERAL: Awake and alert. HENT: Normocephalic, atraumatic. Ear canals patent. Oral mucosa is pink and moist. EYES: PERRLA, EMOIs, Conjunctiva pink, sclera white, no periorbital swelling. CHEST: Normal to inspection and without deformities. CARDIOVASCULAR: S1 and S2 sounds normal. Regular rate and rhythm, no murmurs, clicks, or bruits. No pedal edema. RESPIRATORY: Normal respiratory rate, trachea midline, airway patent. No stridor, nasal flaring or accessory muscle use. Lungs are clear in all stinson without wheeze, rhonchi, or crackles. GASTROINTESTINAL: Bowel sounds normoactive. Abdomen is soft and non-tender. No organomegaly. MUSCULOSKELETAL: Normal gait and coordination. Equal tone and mass bilaterally. EXTREMITIES: CMS intact. Moves all extremities. SKIN: Warm, dry, soft, appropriate color for ethnicity. No lesions, rashes, or wounds. NEURO: Alert and Oriented X 3. Good coordination. No ataxia, or sensory deficits, or cognitive issues. PHYSICAL EXAMINATION: GENERAL: Well groomed, alert, and cooperative. Answers questions promptly and appropriately. Vital signs noted. HENT: Normocephalic. Ear canals patent. Oral mucosa is pink and moist. EYES: PERRLA, EOMIs, conjunctiva pink, sclera white, no periorbital swelling. NECK: Full ROM, no midline or spinal tenderness. CARDIOVASCULAR: S1 and S2 sounds normal. Regular rate and rhythm, no murmurs, cl icks, or bruits. RESPIRATORY: Normal respiratory rate, trachea midline, airway patent. No stridor, nasal flaring or accessory muscle use. Lungs are clear in all stinson without wheeze, rhonchi, or crackles. MUSCULOSKELETAL: Normal gait and coordination. Equal tone and mass bilaterally. Equal strength bilaterally to upper and lower extremities. EXTREMITIES: CMS intact. Moves all extremities. SKIN: Warm, dry, soft, appropriate color for ethnicity. No lesions, rashes, or wounds to visualized areas. NEURO: Alert and Oriented X 3. GCS: 15. Good coordination. No ataxia, or sensory deficits, or cognitive issues. Cranial Nerves: II: Visual stinson grossly intact. III & IV & : EOMIs V: Able to open and close jaw. VII: Facial movements symetrical. Able to close eyelids tightly. VIII: Hearing grossly intact, adequate balance. X: Uvula pronation intact. XI: Patient is able to shrug shoulders. XII: Patient is able to stick out tongue and move it side to side. PSYCH: Appropriate affect and mood. <Ladan Huitron DO - Last Filed: 11/19/20 08:01> Initial Vital Signs Initial Vital Signs: Vital Signs Temperature 98.3 F 11/18/20 11:13 Pulse Rate 73 11/18/20 11:13 Respiratory Rate 16 11/18/20 11:13 Blood Pressure 189/93 H 11/18/20 11:13 Pulse Oximetry 100 11/18/20 11:13 Course <MARGUERITE Paul - Last Filed: 11/18/20 16:15> Course Course Narrative: 1130: Patient was initially given a migraine cocktail of Reglan, Benadryl, Toradol, and IV fluids 1217: BP now 135/86, HR 70. Orders Ordered: Discontinued Medications Diphenhydramine HCl (Diphenhydramine 50 Mg/Ml Vial) 25 mg IV NOW ONE Stop: 11/18/20 11:26 Last Admin: 11/18/20 11:37 Dose: 25 mg Documented by: GEOVANY Sodium Chloride (Normal Saline 0.9%) 1,000 mls @ 1,000 mls/hr IV BOLUS ONE Stop: 11/18/20 12:23 Last Infusion: 11/18/20 12:59 Dose: 0 mls/hr Documented by: Admin: 11/18/20 11:36 Dose: 1,000 mls/hr Documented by: GEOVANY Ketorolac Tromethamine (Ketorolac 60 Mg/2 Ml Vial) 30 mg IV NOW ONE Stop: 11/18/20 11:25 Last Admin: 11/18/20 11:37 Dose: 30 mg Documented by: GEOVANY Metoclopramide HCl (Metoclopramide 10 Mg/2 Ml Inj) 10 mg IV NOW ONE Stop: 11/18/20 11:26 Last Admin: 11/18/20 11:37 Dose: 10 mg Documented by: GEOVANY Consultations Consultation #1: Patient staffed with Dr. Huitron, discussed test, test plan of care. Vital Signs Vital signs: Vital Signs - 8 hr 11/18/20 11:13 11/18/20 11:30 11/18/20 11:49 Temperature 98.3 F Pulse Rate 73 70 80 Respiratory Rate 16 22 18 Blood Pressure 189/93 H 135/86 Pulse Oximetry 100 100 100 11/18/20 12:00 11/18/20 12:56 11/18/20 13:28 Temperature Pulse Rate 77 70 64 Respiratory Rate 17 16 Blood Pressure 120/60 117/71 115/75 Pulse Oximetry 98 98 <Ladan Huitron, - Last Filed: 11/19/20 08:01> Orders Ordered: Discontinued Medications Diphenhydramine HCl (Diphenhydramine 50 Mg/Ml Vial) 25 mg IV NOW ONE Stop: 11/18/20 11:26 Last Admin: 11/18/20 11:37 Dose: 25 mg Documented by: GEOVANY Sodium Chloride (Normal Saline 0.9%) 1,000 mls @ 1,000 mls/hr IV BOLUS ONE Stop: 11/18/20 12:23 Last Infusion: 11/18/20 12:59 Dose: 0 mls/hr Documented by: Admin: 11/18/20 11:36 Dose: 1,000 mls/hr Documented by: GEOVANY Ketorolac Tromethamine (Ketorolac 60 Mg/2 Ml Vial) 30 mg IV NOW ONE Stop: 11/18/20 11:25 Last Admin: 11/18/20 11:37 Dose: 30 mg Documented by: GEOVANY Metoclopramide HCl (Metoclopramide 10 Mg/2 Ml Inj) 10 mg IV NOW ONE Stop: 11/18/20 11:26 Last Admin: 11/18/20 11:37 Dose: 10 mg Documented by: KSWANSO Vital Signs Vital signs: Vital Signs - 8 hr 11/18/20 11:13 11/18/20 11:30 11/18/20 11:49 Temperature 98.3 F Pulse Rate 73 70 80 Respiratory Rate 16 22 18 Blood Pressure 189/93 H 135/86 Pulse Oximetry 100 100 100 11/18/20 12:00 11/18/20 12:56 11/18/20 13:28 Temperature Pulse Rate 77 70 64 Respiratory Rate 17 16 Blood Pressure 120/60 117/71 115/75 Pulse Oximetry 98 98 Medical Decision Making <MARGUERITE Paul - Last Filed: 11/18/20 16:15> Medical Records Medical records reviewed: Yes I reviewed the patient's medical records. Lab Data Lab results reviewed: Yes I reviewed the patient's lab results. Result diagrams: 11/18/20 11:25 11/18/20 11:25 Labs: Lab Results 11/18/20 11/18/20 Range/Units 11:25 11:25 WBC 7.6 (4.5-11.0) X10^3/uL RBC 4.59 (4.0-5.2) X10^6/uL Hgb 13.2 (12.0-16.0) g/dL Hct 39.8 (36-46) % MCV 86.8 (80-100) fL MCH 28.7 (26-34) PG MCHC 33.0 (30-36) % RDW 13.7 (11.6-14.8) % Plt Count 257 (150-400) X10^3/uL Neut % (Auto) 56.8 (50-75) % Lymph % (Auto) 33.7 (25-40) % [place] % (Auto) 7.4 (3-14) % Eos % (Auto) 1.3 L (2-4) % Baso % (Auto) 0.8 (0-2) % Neut # (Auto) 4300 (1657-0433) /uL Lymph # (Auto) 2600 (5638-1555) /uL [place] # (Auto) 600 (0-900) /uL Eos # (Auto) 100 (0-450) /uL Baso # (Auto) 100 (0-100) /uL Sodium 141 (137-145) mmol/L Potassium 3.4 (3.4-5.1) mmol/L Chloride 104 (98-107) mmol/L Carbon Dioxide 31 (22-32) mmol/L BUN 8 (7-17) mg/dL Creatinine 0.59 (0.52-1.04) mg/dL Estimated GFR > 60.0 (>60) mL/min BUN/Creatinine Ratio 13.6 (6-22) Glucose 98 (70-100) mg/dL Calcium 9.3 (8.4-10.2) mg/dL Total Bilirubin 0.7 (0.2-1.3) mg/dL AST 40 H (14-36) IU/L ALT 32 (<35) IU/L Alkaline Phosphatase 90 (38-126) U/L Total Protein 8.3 H (6.3-8.2) g/dL Albumin 4.7 (3.5-5.0) g/dL Globulin 3.6 (1.7-4.1) g/dL Albumin/Globulin Ratio 1.3 (1.0-2.8) Point of Care Testing Test Results Negative Urine Dip Bedside Urine Glucose Negative Bedside Urine Bilirubin - Negative Bedside Urine Ketone - Negative Urine Specific [place] 1.015 Bedside Urine Occult Blood - Negative Bedside Urine pH 7.5 Bedside Urine Protein - Negative Bedside Urine Urobilinogen - Negative Bedside Urine Nitrite - Negative Bedside Urine Leukocytes + 70 Esterase Point of care testing: Point of Care Testing Test Results Negative Urine Dip Bedside Urine Glucose Negative Bedside Urine Bilirubin - Negative Bedside Urine Ketone - Negative Urine Specific [place] 1.015 Bedside Urine Occult Blood - Negative Bedside Urine pH 7.5 Bedside Urine Protein - Negative Bedside Urine Urobilinogen - Negative Bedside Urine Nitrite - Negative Bedside Urine Leukocytes + 70 Esterase [facility] Narrative Medical decision making narrative: 50yo female who was seen yesterday for hypertension and headache. CT scans, chest x-ray, labs, at that time were within normal limits other than a slightly low potassium at 3.0. Patient returns for an increasing headache without medication this morning and hyperte nsion as well. I suspect this most likely related to a migraine and or headache as symptoms almost completely resolved with a migraine cocktail. Once pain was decreased, patient's blood pressure returned to normal of 120/60. She did not have any other concerning symptoms such as chest pain. Repeat laboratory work was within normal limits. Less likely intracranial etiology as symptoms resolved with medications, head CT was negative yesterday. No neuro abnormalities. Less concern for ocular issues given lack of double vision, vision loss, or vision changes. We discussed that it is possible that the headache could cause high blood pressure which I think is more likely. However, she was encouraged to monitor blood pressure daily and follow up with her PCP. We discussed the high blood pressure can cause headaches in some cases however, her blood pressure dropped dramatically after treatment of her headache. We also discussed the importance of follow-up for further evaluation of her headaches continue. Return precautions given for new or worsening symptoms especially vomiting, vision changes, or severe pain. Patient requesting to go home after migraine cocktail. She was given a prescription for Reglan to repeat migraine cocktail with Benadryl and ibuprofen this evening if headache continues. We discussed how headache are hard to eliminate after they have been ongoing for a prolonged period of time. Patient agreed to plan of care verbalized understanding. <Ladan Huitron, DO - Last Filed: 11/19/20 08:01> Lab Data Labs: Lab Results 11/18/20 11/18/20 Range/Units 11:25 11:25 WBC 7.6 (4.5-11.0) X10^3/uL RBC 4.59 (4.0-5.2) X10^6/uL Hgb 13.2 (12.0-16.0) g/dL Hct 39.8 (36-46) % MCV 86.8 (80-100) fL MCH 28.7 (26-34) PG MCHC 33.0 (30-36) % RDW 13.7 (11.6-14.8) % Plt Count 257 (150-400) X10^3/uL Neut % (Auto) 56.8 (50-75) % Lymph % (Auto) 33.7 (25-40) % [place] % (Auto) 7.4 (3-14) % Eos % (Auto) 1.3 L (2-4) % Baso % (Auto) 0.8 (0-2) % Neut # (Auto) 4300 (1064-0608) /uL Lymph # (Auto) 2600 (4333-1333) /uL [place] # (Auto) 600 (0-900) /uL Eos # (Auto) 100 (0-450) /uL Baso # (Auto) 100 (0-100) /uL Sodium 141 (137-145) mmol/L Potassium 3.4 (3.4-5.1) mmol/L Chloride 104 (98-107) mmol/L Carbon Dioxide 31 (22-32) mmol/L BUN 8 (7-17) mg/dL Creatinine 0.59 (0.52-1.04) mg/dL Estimated GFR > 60.0 (>60) mL/min BUN/Creatinine Ratio 13.6 (6-22) Glucose 98 (70-100) mg/dL Calcium 9.3 (8.4-10.2) mg/dL Total Bilirubin 0.7 (0.2-1.3) mg/dL AST 40 H (14-36) IU/L ALT 32 (<35) IU/L Alkaline Phosphatase 90 (38-126) U/L Total Protein 8.3 H (6.3-8.2) g/dL Albumin 4.7 (3.5-5.0) g/dL Globulin 3.6 (1.7-4.1) g/dL Albumin/Globulin Ratio 1.3 (1.0-2.8) Point of Care Testing Test Results Negative Urine Dip Bedside Urine Glucose Negative Bedside Urine Bilirubin - Negative Bedside Urine Ketone - Negative Urine Specific [place] 1.015 Bedside Urine Occult Blood - Negative Bedside Urine pH 7.5 Bedside Urine Protein - Negative Bedside Urine Urobilinogen - Negative Bedside Urine Nitrite - Negative Bedside Urine Leukocytes + 70 Esterase Point of care testing: Point of Care Testing Test Results Negative Urine Dip Bedside Urine Glucose Negative Bedside Urine Bilirubin - Negative Bedside Urine Ketone - Negative Urine Specific [place] 1.015 Bedside Urine Occult Blood - Negative Bedside Urine pH 7.5 Bedside Urine Protein - Negative Bedside Urine Urobilinogen - Negative Bedside Urine Nitrite - Negative Bedside Urine Leukocytes + 70 Esterase Discharge Plan Departure Patient Disposition: Home Clinical Impression: Migraine Qualifiers: Migraine type: unspecified Status migrainosus presence: without status migrainosus Intractability: not intractable Qualified Code(s): G43.909 - Migraine, unspecified, not intractable, without status migrainosus Instructions: Essential Hypertension, DI for Migraine Activity Restrictions/Additional Instructions: Thank you for entrusting me with your care today. As discussed, your laboratory work is non-remarkable. I suspect your headache is elevating your blood pressure. However, I do recommend following up with your primary care provider in the next 1-2 weeks for further discussion about blood pressure management and headache management. I have prescribed you metoclopramide (AKA reglan). This was sent to [facility] in [place]. If you still have headache this evening I recommend taking metoclopramide 10mg, Benadryl 25mg, and ibuprofen 600mg this evening. You can also take Tylenol if needed. Do not take these medications with your previous medication that was prescribed yesterday. Return emergency department for any new or worsening symptoms especially vomiting, severe pain, vision changes, any other concerns. Prescriptions: New metoclopramide HCl [Reglan] 10 mg tablet 10 mg PO Q6H PRN (Reason: nausea and vomiting) Qty: 10 RF: 0 No Action lidocaine [Lidoderm] 5 % adhesive patch,medicated 1 patch Topical Q12H MDD pain, moderate Qty: 15 RF: 6 gabapentin [Neurontin] 300 mg capsule 900 mg PO BEDTIME Qty: 90 RF: 5 tramadol 50 mg tablet 50 mg PO BID PRN (Reason: pain) Qty: 30 RF: 0 cyclobenzaprine 10 mg tablet See Rx Instructions .ROUTE .COMPLEX Qty: 90 RF: 0 duloxetine 30 mg capsule,delayed release(DR/EC) 60 mg PO DAILY Qty: 60 RF: 2 eadxmmyjkv-pemkwuhdzfmjv-tukp [Fioricet] 50-300-40 mg capsule 1 cap PO Q8H PRN (Reason: pain) Qty: 10 RF: 0 xfepjvywco-gadklqydrwxdx-duqk [Fioricet] 50-300-40 mg capsule 1 cap PO Q8H PRN (Reason: pain) Qty: 10 RF: 0 Referrals: Tiffany Gallagher DO [Primary Care Provider] - <Ladan Huitron DO - Last Filed: 11/19/20 08:01> Cosign ED Attending Lucrecia Attestation: I was immediately available in the department for consultation. Documentation has been reviewed. I agree with assessment and plan.
[2020-11-18 12:56] VITALS: BP 117/71; PULSE 70; RESP 16; O2SAT 98
[2020-11-18 13:28] VITALS: BP 115/75; PULSE 64
== END 2020-11-18 13:29 | disposition home or self-care (01) ==
PROVIDERS: Emergency Provider Nurse Practitioner; PCP Family Medicine
DX: G43.909 Migraine, unspecified, not intractable, without status migrainosus (principal); E87.6 Hypokalemia; I10 Essential (primary) hypertension
CPT/HCPCS: 36415; 80053; 81003; 81025; 85025; 96361; 96374; 96375; 99282; 99284; J1200; J1885; J2765

== ENCOUNTER 2020-11-21 12:05 | Emergency (ER) | payer OTHER, MEDICAID, SELFPAY ==
[2020-11-21 12:18] VITALS: BP 161/98; PULSE 74; RESP 18; TEMP 36.4; O2SAT 100; BMI 27.9
--- NOTE | 2020-11-21 12:32 | DI.RAD.S_ITS ---
PROCEDURE: XR CHEST 1V INDICATIONS: chest pain TECHNIQUE: One view of the chest was acquired. COMPARISON: [facility], , CHEST 2 VIEW, 09/11/2014, 11:00. [facility], , XR CHEST 1V, 11/17/2020, 14:04. FINDINGS: Surgical changes and devices: None. Lungs and pleura: Lungs are clear. No pleural effusions or pneumothorax. Mediastinum: Mediastinal contours appear normal. Heart size is normal. Bones and chest wall: No suspicious bony lesions. Overlying soft tissues appear unremarkable. IMPRESSION: Portable chest within normal limits. Dictated by: Rodney Shearer M.D. on 11/21/2020 at 11:54 Approved by: Rodney Shearer M.D. on 11/21/2020 at 11:55
--- NOTE | 2020-11-21 12:42 | PC.NURSE ---
Pt is c/o headache that has lasted for a few days. Took her BP at home and was concerned when it read in the 160 for her SBP
[2020-11-21 12:45] LABS: Add Manual Diff / Slide Review NO; Basophils Absolute Auto 100 /uL (0-100); Eosinophils Absolute Auto 100 /uL (0-450); Eosinophils Percent Auto 1.5 % (2-4); Hematocrit 38.7 % (36-46); Hemoglobin 12.8 g/dL (12.0-16.0); Lymphocytes Absolute Auto 1900 /uL (1100-4500); Lymphocytes Percent Auto 28.1 % (25-40); Mean Corpuscular HGB Conc 33.2 % (30-36); Mean Corpuscular Hemoglobin 28.6 PG (26-34); Mean Corpuscular Volume 86.2 fL (80-100); Monocytes Absolute Auto 400 /uL (0-900); Monocytes Percent Auto 6.2 % (3-14); Neutrophils Absolute Auto 4200 /uL (1500-7000); Neutrophils Percent Auto 63.2 % (50-75); Platelet Count 244 X10^3/uL (150-400); Red Blood Cell Count 4.48 X10^6/uL (4.0-5.2); Red Cell Distribution Width 13.4 % (11.6-14.8); White Blood Cell Count 6.7 X10^3/uL (4.5-11.0)
[2020-11-21 12:49] LABS: Prothrombin Time 11.1 SECONDS (10.1-12.7)
[2020-11-21 12:52] LABS: PTT Partial Thromboplastin Tim 30 SECONDS (26.4-36.2)
--- NOTE | 2020-11-21 12:52 | ED_ITS ---
HPI - Headache General Chief Complaint: Hypertension Stated Complaint: High Blood Pressure, Bad Headache Time Seen by Provider: 11/21/20 12:35 Source: patient and family Mode of arrival: Ambulatory Limitations: no limitations History of Present Illness HPI Narrative: Patient here with family member. Continued 8 days of bilateral temporal headache. Pressure. Nausea but no vomiting no vision changes. No altered mental status. No fever chills. No sick contacts. Patient seen here twice already in the last 4 days. Please see notes below from previous visit. No history of high blood pressure. Has not started on any blood pressure medications. Has not seen family doctor since visits here. No slurred speech facial droop altered mental status limb weakness numbness tingling. No prior history of migraine headache management. No recent changes in health/diet/medications. Home migraine cocktail prescription not effective at home. HPI - General Adult <MARGUERITE Paul - Last Filed: 11/18/20 16:15> General Chief complaint: Hypertension Stated complaint: headache, high blood pressure Time Seen by Provider: 11/18/20 11:21 Source: patient Mode of arrival: Ambulatory Limitations: no limitations History of Present Illness HPI narrative: 50yo female presents to the emergency department for a worsening headache and high blood pressure. Patient was seen and evaluated in the emergency department for high blood pressure and headache yesterday. She had a chest x-ray, laboratory work, and head CT scan. All within normal limits other than potassium at 3.0. She was given Toradol, Zofran, fluids, and potassium, she was discharged with Fioricet. Patient states she took Fioricet last evening and states that helped her headache. Upon wakening she only took Tylenol as she was scared that if your site would make her drowsy, she went to work this morning. At work she states the headache increased, she describes it as a pounding behind her eyes. She went to the nurse at that time and noticed her blood pressure was elevated. She called her doctor's office and was instructed to be seen in the emergency department again. Patient was originally seen yesterday as she had had a headache for 5-6 days, she has a history of headaches but not migraines. Usually her headaches do not last this long. She was seeing a provider in [place] for a follow-up shoulder surgery that was done in August, they noted her blood pressure to be elevated approximately 164/98. Patient called her provider at that time, her provider was not in the office she was told to be evaluated in the emergency department. Patient denies any other symptoms other than intermittent nausea. She denies any vomiting, double vision, vision loss, chest pain, shortness of breath, dizziness, nausea, vomiting, diarrhea, cough, or any other concerns. She does not take any antihypertensive medications. MDM Narrative Medical decision making narrative: 50yo female who was seen yesterday for hypertension and headache. CT scans, chest x-ray, labs, at that time were within normal limits other than a slightly low potassium at 3.0. Patient returns for an increasing headache without medication this morning and hypertens ion as well. I suspect this most likely related to a migraine and or headache as symptoms almost completely resolved with a migraine cocktail. Once pain was decreased, patient's blood pressure returned to normal of 120/60. She did not have any other concerning symptoms such as chest pain. Repeat laboratory work was within normal limits. Less likely intracranial etiology as symptoms resolved with medications, head CT was negative yesterday. No neuro abnormalities. Less concern for ocular issues given lack of double vision, vision loss, or vision changes. We discussed that it is possible that the headache could cause high blood pressure which I think is more likely. However, she was encouraged to monitor blood pressure daily and follow up with her PCP. We discussed the high blood pressure can cause headaches in some cases however, her blood pressure dropped dramatically after treatment of her headache. We also discussed the importance of follow-up for further evaluation of her headaches continue. Return precautions given for new or worsening symptoms especially vomiting, vision changes, or severe pain. Patient requesting to go home after migraine cocktail. She was given a prescription for Reglan to repeat migraine cocktail with Benadryl and ibuprofen this evening if headache continues. We discussed how headache are hard to eliminate after they have been ongoing for a prolonged period of time. Patient agreed to plan of care verbalized understanding. <Ladan Huitron, DO - Last Filed: 11/19/20 08:01> Related Data Previous Rx's Medication Instructions Recorded lidocaine 5 % topical patch 1 patch TOPICAL Q12H #15 each MDD 04/04/19 pain, moderate gabapentin 300 mg capsule 900 mg PO BEDTIME #90 cap 01/02/20 cyclobenzaprine 10 mg tablet See Rx Instructions .ROUTE 10/15/20 .COMPLEX #90 tab tramadol 50 mg tablet 50 mg PO BID PRN #30 tab 10/15/20 duloxetine 30 mg capsule,delayed 60 mg PO DAILY #60 cap 10/26/20 release tmlcvbcrvi-iqzcnmkvbzbxm-vfwg 1 cap PO Q8H PRN #10 cap 11/17/20 [Fioricet] gmpcthpaqb-nvkkevmrmbxvx-vioy 1 cap PO Q8H PRN #10 cap 11/17/20 [Fioricet] metoclopramide HCl [Reglan] 10 mg PO Q6H PRN #10 tab 11/18/20 promethazine 25 mg PO TID PRN #10 tab 11/21/20 Allergies Allergy/AdvReac Type Severity Reaction Status Date / Time citalopram [CITALOPRAM] AdvReac Mild Migraines Verified 11/18/20 11:18 Review of Systems Review of Systems Narrative: GENERAL: Denies chills, fatigue, malaise, fever, sweats. HEENT: Denies sinus pain, ear pain, sore throat RESPIRATORY: Denies dyspnea, cough CARDIOVASCULAR: Denies chest pain, palpitations GASTROINTESTINAL: Denies nausea, vomiting, abdominal pain : Denies dysuria, frequency, hematuria MUSCULOSKELETAL: denies muscle or bony pain SKIN: Denies rash, skin lesions NEUROLOGIC: Denies weakness, numbness, complains headache, no altered mental status no confusion PSYCH: Not combative, not anxious ROS Unobtainable: All systems reviewed & are unremarkable except as noted in HPI and below Patient History Medical History Arm pain, right Chronic back pain (1999) Chronic headaches CTS (carpal tunnel syndrome) (2000) Depression (2004) Dysfunctional uterine bleeding Migraines Neck pain Pancreatitis (2005) Scoliosis (1998) Surgical History Anesthesia complication History of surgery on arm (06/2010) Status post carpal tunnel release (03/2008) Status post endometrial ablation (08/2013) Status post hysterectomy with oophorectomy (01/2014) Status post laparoscopic cholecystectomy (2004) Status post subacromial decompression (1999) Status post tubal ligation (12/2004) Family History Father Age: 86 Hypertension Cancer Sister Breast cancer Grandmother Age: 89 Breast cancer Mother Age: 79 Stroke Hypertension Hyperlipidemia Osteoporosis Grandmother Breast cancer H/O bilateral mastectomy Family/Other Breast cancer Social History marital status: occupational status: employed Smoking Status: Never smoker Smoking Status: Never smoker alcohol intake frequency: 0-2 drinks per day Substance Use Type: does not use Exam Narrative Exam Narrative: GENERAL: in no distress, not toxic not dyspneic HEAD: Normocephalic. EYES: Pupils equal round No scleral icterus. No injection no discharge ENT: Mucous membranes moist. NECK: Trachea midline. CARDIOVASCULAR: Regular rate and rhythm without murmurs RESPIRATORY: Clear to auscultation. Breath sounds equal bilaterally. No wheezes, rales, or rhonchi. GASTROINTESTINAL: Abdomen soft, non-tender EXTREMITIES: No gross deformities. BACK: No flank tenderness. NEURO: AOx4. Clear speech no facial droop steady self gait no foot drop. Light touch intact to bilateral face hands and feet. Strong equal machine bender bilaterally and ankle flexion hip flexion and knee flexion. Strong bilateral patellar reflexes. Steady Romberg, negative pronator drift SKIN: Warm and dry PSYCH: Not anxious, is cooperative Initial Vital Signs Initial Vital Signs: Vital Signs Temperature 97.6 F 11/21/20 12:18 Pulse Rate 74 11/21/20 12:18 Respiratory Rate 18 11/21/20 12:18 Blood Pressure 161/98 H 11/21/20 12:18 Pulse Oximetry 100 11/21/20 12:18 Course Course Course Narrative: Patient improved with Toradol Reglan and normal saline. Results reviewed with patient and Orders Ordered: ED Orders 11/21/20 12:32 XR chest 1V Stat Complete Blood Count AUTO DIFF Stat Comprehensive Metabolic Panel Stat Lipase Stat Partial Thromboplastin Time Stat Prothrombin Time INR Stat Troponin & CK Cardiac Panel Stat Discontinued Medications Sodium Chloride (Normal Saline 0.9%) 1,000 mls @ 1,000 mls/hr IV BOLUS ONE Stop: 11/21/20 15:01 Last Infusion: 11/21/20 15:17 Dose: 0 mls/hr Documented by: Admin: 11/21/20 14:13 Dose: 1,000 mls/hr Documented by: ANNELIESE Ketorolac Tromethamine (Ketorolac 60 Mg/2 Ml Vial) 15 mg IV NOW ONE Stop: 11/21/20 14:03 Last Admin: 11/21/20 14:12 Dose: 15 mg Documented by: ANNELIESE Lisinopril (Lisinopril 5 Mg Tablet) 5 mg PO NOW ONE Stop: 11/21/20 12:50 Last Admin: 11/21/20 13:02 Dose: 5 mg Documented by: KEREN Metoclopramide HCl (Metoclopramide 10 Mg/2 Ml Inj) 10 mg IV NOW ONE Stop: 11/21/20 14:03 Last Admin: 11/21/20 14:13 Dose: 10 mg Documented by: ANNELIESE Ondansetron HCl (Ondansetron 4 Mg/2 Ml Inj) 4 mg IV NOW ONE Stop: 11/21/20 12:51 Last Admin: 11/21/20 13:02 Dose: 4 mg Documented by: KEREN Reevaluation(s) Reevaluation #1: Patient feels much better. Sleeping comfortably. Awoke easily. Reviewed results with patient and . They are in agreement that blood pressure elevation due to headache. They desire discharge home and would like to try Phenergan for headache at home. Time: 15:06 Vital Signs Vital signs: Vital Signs - 8 hr 11/21/20 12:18 11/21/20 13:47 11/21/20 14:53 Temperature 97.6 F Pulse Rate 74 79 Respiratory Rate 18 16 Blood Pressure 161/98 H Pulse Oximetry 100 100 99 11/21/20 15:00 Temperature Pulse Rate 80 Respiratory Rate 20 Blood Pressure 133/77 Pulse Oximetry 100 MDM - Headache Differential Diagnosis Differential diagnosis: Likely migraine, tension headache, subarachnoid hemorrhage and headache Medical Records Attestation: I reviewed the patient's medical records. Medical records narrative: [address] [id number] Scan ReportSigned Patient: Marissa Das [facility]#: [id number]: 1970Acct:[id number]/Sex: 50 / FDate of Service: 11/17/20Loc: EDAccession Number: [id number] Procedure: CT head/brain wo con Ordering Provider: Mank,Noemy C D.O. PROCEDURE: CT HEAD/BRAIN WO CON INDICATIONS: headache since Sat, migraine like but no history, mod htn TECHNIQUE: Noncontrast 4.5 mm thick angled axial sections acquired from the foramen magnum to the vertex, with coronal and sagittal reformats. For radiation dose reduction, the following was used: automated exposure control, adjustment of mA and/or kV according to patient size. COMPARISON: None. FINDINGS: Image quality: Excellent. CSF spaces: Basal cisterns are patent. No extra-axial fluid collections. Ventricles are normal in size and shape. Brain: No midline shift. No intracranial masses or hemorrhage. Diaz-white matter interface is normal. Skull and face: Calvarium and visualized facial bones are intact, without suspicious lesions. Sinuses: Visualized sinuses and mastoids are clear. IMPRESSION: No acute intracranial disease process. Dictated by: Zabrina Perkins MD, PhD on 11/17/2020 at 14:59 Approved by: Zabrina Perkins MD, PhD on 11/17/2020 at 15:00 Lab Data Attestation: I reviewed the patient's lab results. Result diagrams: 11/21/20 12:32 11/21/20 12:32 Labs: Lab Results 11/21/20 11/21/20 11/21/20 Range/Units 12:32 12:32 12:32 WBC 6.7 (4.5-11.0) X10^3/uL RBC 4.48 (4.0-5.2) X10^6/uL Hgb 12.8 (12.0-16.0) g/dL Hct 38.7 (36-46) % MCV 86.2 (80-100) fL MCH 28.6 (26-34) PG MCHC 33.2 (30-36) % RDW 13.4 (11.6-14.8) % Plt Count 244 (150-400) X10^3/uL Neut % (Auto) 63.2 (50-75) % Lymph % (Auto) 28.1 (25-40) % Leslie % (Auto) 6.2 (3-14) % Eos % (Auto) 1.5 L (2-4) % Baso % (Auto) 1.0 (0-2) % Neut # (Auto) 4200 (4155-6408) /uL Lymph # (Auto) 1900 (2349-6733) /uL Leslie # (Auto) 400 (0-900) /uL Eos # (Auto) 100 (0-450) /uL Baso # (Auto) 100 (0-100) /uL PT 11.1 (10.1-12.7) SECONDS INR 1.0 (0.9-1.3) APTT 30 (26.4-36.2) SECONDS Sodium 138 (137-145) mmol/L Potassium 3.7 (3.4-5.1) mmol/L Chloride 104 (98-107) mmol/L Carbon Dioxide 28 (22-32) mmol/L BUN 13 (7-17) mg/dL Creatinine 0.61 (0.52-1.04) mg/dL Estimated GFR > 60.0 (>60) mL/min BUN/Creatinine Ratio 21.3 (6-22) Glucose 120 H (70-100) mg/dL Calcium 9.0 (8.4-10.2) mg/dL Total Bilirubin 0.7 (0.2-1.3) mg/dL AST 30 (14-36) IU/L ALT 29 (<35) IU/L Alkaline Phosphatase 87 (38-126) U/L Total Creatine Kinase 124 (30-135) U/L CK-MB (CK-2) 0.72 (<2.37) ng/mL CK-MB (CK-2) Rel Index 0.6 L (1.5-5.0) % Troponin I < 0.012 (0.01-0.034) ng/mL Total Protein 7.3 (6.3-8.2) g/dL Albumin 4.2 (3.5-5.0) g/dL Globulin 3.1 (1.7-4.1) g/dL Albumin/Globulin Ratio 1.4 (1.0-2.8) Lipase 68 (23-300) U/L Imaging Data Chest x-ray: Radiologist's Impression: [address] [id number] ReportSigned Patient: Marissa Das MMR#: [id number]: 1970Acct:[id number]/Sex: 50 / FDate of Service: 11/21/20Loc: EDAccession Number: [id number] Procedure: XR chest 1V Ordering Provider: Maxx Elena MD PROCEDURE: XR CHEST 1V INDICATIONS: chest pain TECHNIQUE: One view of the chest was acquired. COMPARISON: [facility], CHEST 2 VIEW, 09/11/2014, 11:00. [facility], XR CHEST 1V, 11/17/2020, 14:04. FINDINGS: Surgical changes and devices: None. Lungs and pleura: Lungs are clear. No pleural effusions or pneumothorax. Mediastinum: Mediastinal contours appear normal. Heart size is normal. Bones and chest wall: No suspicious bony lesions. Overlying soft tissues appear unremarkable. IMPRESSION: Portable chest within normal limits. Dictated by: Rodney Shearer M.D. on 11/21/2020 at 11:54 Approved by: Rodney Shearer M.D. on 11/21/2020 at 11:55 ECG Data Attestation: I personally reviewed and interpreted this ECG as follows: Interpretation: Normal sinus rhythm rate 78, incomplete right bundle-branch block, no ST elevation or depression MDM Narrative Medical decision making narrative: Appropriate for discharge home. Patient headache resolved. Blood pressure elevation likely due to headache. We did try lowering blood pressure 1st with lisinopril however no resolution with headache after lowering blood pressure. They agree for discharge home and follow-up with primary care and Neurology referral for migraine management. At this time likely tension headache Discharge Plan Departure Patient Disposition: Home Clinical Impression: Acute tension headache Qualifiers: Intractability: not intractable Qualified Code(s): G44.209 - Tension-type headache, unspecified, not intractable Instructions: Tension Headache Activity Restrictions/Additional Instructions: See family doctor this week for recheck and possible referral to Neurology for migraine evaluation and management and medications. Have blood pressure recheck with family doctor this week as well. Return if worse. Return if any questions or concerns. Stop taking previous prescribed medication, Regl an/metoclopramide. New prescription for promethazine has been sent to your [facility] in [place] Prescriptions: New promethazine 25 mg tablet 25 mg PO TID PRN (Reason: nausea and vomiting) Qty: 10 RF: 0 No Action lidocaine [Lidoderm] 5 % adhesive patch,medicated 1 patch Topical Q12H MDD pain, moderate Qty: 15 RF: 6 gabapentin [Neurontin] 300 mg capsule 900 mg PO BEDTIME Qty: 90 RF: 5 tramadol 50 mg tablet 50 mg PO BID PRN (Reason: pain) Qty: 30 RF: 0 cyclobenzaprine 10 mg tablet See Rx Instructions .ROUTE .COMPLEX Qty: 90 RF: 0 duloxetine 30 mg capsule,delayed release(DR/EC) 60 mg PO DAILY Qty: 60 RF: 2 vpevcuobbl-rlqriqdtsdtlz-nire [Fioricet] 50-300-40 mg capsule 1 cap PO Q8H PRN (Reason: pain) Qty: 10 RF: 0 fvvjownpfp-ogfcigwxoailw-qrwe [Fioricet] 50-300-40 mg capsule 1 cap PO Q8H PRN (Reason: pain) Qty: 10 RF: 0 metoclopramide HCl [Reglan] 10 mg tablet 10 mg PO Q6H PRN (Reason: nausea and vomiting) Qty: 10 RF: 0 Referrals: Tiffany Gallagher DO [Primary Care Provider] -
[2020-11-21 12:55] LABS: Alanine Aminotransferase 29 IU/L (<35); Albumin 4.2 g/dL (3.5-5.0); Albumin Globulin Ratio 1.4 (1.0-2.8); Alkaline Phosphatase 87 U/L (38-126); Aspartate Aminotransferase 30 IU/L (14-36); BUN Creatinine Ratio 21.3 (6-22); Bilirubin Total 0.7 mg/dL (0.2-1.3); Blood Urea Nitrogen 13 mg/dL (7-17); Carbon Dioxide 28 mmol/L (22-32); Chloride 104 mmol/L (98-107); Creatine Kinase 124 U/L (30-135); Estimated Glomerular Filt Rate > 60.0 mL/min (>60); Globulin 3.1 g/dL (1.7-4.1); Glucose 120 mg/dL (70-100); HEMOLYSIS < 15 (0-50); Lipase 68 U/L (23-300); Potassium 3.7 mmol/L (3.4-5.1); Sodium 138 mmol/L (137-145); Total Protein 7.3 g/dL (6.3-8.2)
[2020-11-21] MEDS: lisinopriL 5 MG TABLET PO (13:02)
[2020-11-21] MEDS: ONDANSETRON 4 MG/2 ML INJ IV (13:02)
[2020-11-21 13:05] LABS: Troponin I < 0.012 ng/mL (0.01-0.034)
[2020-11-21 13:10] LABS: CKMB % Relative Index 0.6 % (1.5-5.0); Creatine Kinase MB 0.72 ng/mL (<2.37)
--- NOTE | 2020-11-21 13:46 | PC.NURSE ---
NRB placed with 10L FiO2 for cluster headache per Dr. Elena.
[2020-11-21 13:47] VITALS: O2SAT 100
[2020-11-21] MEDS: KETOROLAC 60 MG/2 ML VIAL 15 MG IV (14:12)
[2020-11-21] MEDS: METOCLOPRAMIDE 10 MG/2 ML INJ IV (14:13)
[2020-11-21] MEDS: SODIUM CHLORIDE 0.9% 1,000 ML 1000 ML IV (14:13)
[2020-11-21 14:53] VITALS: PULSE 79; RESP 16; O2SAT 99
[2020-11-21 15:00] VITALS: BP 133/77; PULSE 80; RESP 20; O2SAT 100
== END 2020-11-21 15:19 | disposition home or self-care (01) ==
PROVIDERS: Emergency Provider Emergency Medicine; PCP Family Medicine
DX: G44.209 Tension-type headache, unspecified, not intractable (principal); I10 Essential (primary) hypertension; R11.0 Nausea; R07.9 Chest pain, unspecified
CPT/HCPCS: 36415; 71045; 80053; 82550; 82553; 83690; 84484; 85025; 85610; 85730; 93005; 96361; 96374; 96375; 99281; 99284; J1885; J2405; J2765

== ENCOUNTER → 2020-12-07 15:12 | Outpatient (CLI) | payer OTHER, MEDICAID, SELFPAY ==
--- NOTE | 2020-12-07 15:15 | DI.RAD.S_ITS ---
PROCEDURE: XR FOOT LT MIN 3V INDICATIONS: left foot pain TECHNIQUE: 3 views of the foot were acquired. COMPARISON: [facility], CR, FOOT COMP MIN 3VW (LT), 04/06/2015, 16:55. [facility], CR, FOOT 3V LEFT, 06/11/2014, 19:22. FINDINGS: Bones: No fractures or dislocations. No suspicious bony lesions. Calcaneal spurring. Soft tissues: No tibiotalar joint effusion. There is an ossicle at the Achilles tendon insertion, unchanged from the last exam. IMPRESSION: No acute osseous abnormalities. Dictated by: Ervin Belle M.D. on 12/07/2020 at 17:22 Approved by: Ervin Belle M.D. on 12/07/2020 at 17:25
== END ==
PROVIDERS: PCP Family Medicine; Referring Provider Family Medicine; Visit Provider Family Medicine
DX: S99.922A Unspecified injury of left foot, initial encounter (principal); M79.672 Pain in left foot; X58.XXXA Exposure to other specified factors, initial encounter
CPT/HCPCS: 73630

== ENCOUNTER → 2021-05-03 15:30 | Outpatient (CLI) | payer OTHER, MEDICAID, SELFPAY ==
--- NOTE | 2021-05-03 15:33 | DI.RAD.S_ITS ---
PROCEDURE: XR LUMBAR SPINE 2-3V INDICATIONS: low back pain TECHNIQUE: 3 views of the lumbar spine were acquired. COMPARISON: [facility], , L-SPINE 2-3 VIEWS, 08/19/2010, 10:21. [facility], , L-SPINE 2-3 VIEWS, 06/08/2009, 16:56. FINDINGS: Bones: 5 rty-bzd-cwcyoci vertebrae are present. There is mildly dextroscoliotic mid lumbosacral bony alignment. No vertebral body compression fractures. No suspicious bony lesions. Soft tissues: Overlying bowel gas pattern is normal. No suspicious soft tissue calcifications. IMPRESSION: A minimal degree of convex rightward scoliosis at the middle 3rd of the LS spine is present. No compression fracture found. No significant degenerative disc disease. Facet osteoarthritis is mild to moderate at L4-5 and moderate at L5-S1. This appears mildly worsened from the comparison study 08/19/10. Dictated by: Nba Warner M.D. on 05/03/2021 at 17:07 Approved by: Nba Warner M.D. on 05/03/2021 at 17:08
--- NOTE | 2021-05-03 15:33 | DI.RAD.S_ITS ---
PROCEDURE: XR SACROILIAC JOINT MIN 3V INDICATIONS: low back pain TECHNIQUE: 3 views of the sacroiliac joints were acquired. COMPARISON: None. FINDINGS: Bones: No bony erosions or ankylosis. No suspicious bony lesions. No fractures. Soft tissues: Overlying bowel gas pattern is normal. No suspicious soft tissue densities. IMPRESSION: Normal appearance of the sacroiliac joints with no evidence of sacroiliitis radiographically. Dictated by: Bandar Huff M.D. on 05/03/2021 at 16:36 Approved by: Bandar Huff M.D. on 05/03/2021 at 16:37
== END ==
PROVIDERS: PCP Family Medicine; Referring Provider Family Medicine; Visit Provider Family Medicine
DX: M54.5 Low back pain (principal); M47.816 Spondylosis without myelopathy or radiculopathy, lumbar region; M47.817 Spondylosis without myelopathy or radiculopathy, lumbosacral region
CPT/HCPCS: 72100; 72202

== ENCOUNTER 2021-06-28 16:19 | Emergency (ER) | payer OTHER, SELFPAY ==
[2021-06-28 16:29] VITALS: BP 145/90; PULSE 72; RESP 22; TEMP 36.8; O2SAT 99
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
== END 2021-06-28 17:18 | disposition home or self-care (01) ==
PROVIDERS: Emergency Provider Emergency Medicine; PCP Family Medicine
DX: S46.912A Strain of unspecified muscle, fascia and tendon at shoulder and upper arm level, left arm, initial encounter (principal); S73.101A Unspecified sprain of right hip, initial encounter; S76.011A Strain of muscle, fascia and tendon of right hip, initial encounter; Y04.2XXA Assault by strike against or bumped into by another person, initial encounter; Y99.0 Civilian activity done for income or pay
CPT/HCPCS: 73030; 73502; 99282; 99283

== ENCOUNTER → 2021-08-08 17:17 | Outpatient (CLI) | payer OTHER, MEDICAID, SELFPAY ==
[2021-08-08 17:52] LABS: Appearance Urine UA CLEAR; Bilirubin Urine UA NEGATIVE (NEGATIVE); Color Urine UA ORANGE; Glucose Urine UA TRACE g/dL (Negative); Ketones Urine UA NEGATIVE (NEGATIVE); Leukocyte Esterase Urine UA NEGATIVE (NEGATIVE); Nitrite Urine UA POSITIVE (Negative); Occult Blood Urine UA NEGATIVE (Negative); Protein Urine UA 1+ (Negative)
[2021-08-08 18:26] LABS: Bacteria Urine Occasional (0-1); Culture Indicated Urine Specimen Cultured; RBC Urine None Seen (0-5/HPF); Renal Epithelial Cells Urine 0-1/HPF (0-1/HPF); Squamous Epithelial Cell Urine 1-5 /HPF (0-5/HPF); WBC Urine 0-1/HPF (0-5/HPF)
== END ==
PROVIDERS: PCP Family Medicine; Referring Provider Family Medicine; Visit Provider Family Medicine
DX: R30.0 Dysuria (principal)
CPT/HCPCS: 81001; 87086

== ENCOUNTER 2021-08-25 23:02 | Emergency (ER) | payer OTHER, MEDICAID, SELFPAY ==
[2021-08-25 23:14] VITALS: BP 142/84; PULSE 87; RESP 17; TEMP 37.2; O2SAT 99; BMI 27.7
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
[2021-08-26] MEDS: ACETAMINOPHEN 325 MG TABLET 975 MG PO (00:21)
[2021-08-26] MEDS: KETOROLAC 30 MG/ML VIAL IM (00:21)
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
[2021-08-26] MEDS: OXYCODONE IR 5 MG TABLET PO (01:47)
[2021-08-26 01:55] VITALS: BP 134/82; PULSE 79; RESP 15; O2SAT 100
== END 2021-08-26 01:56 | disposition home or self-care (01) ==
PROVIDERS: Emergency Provider Emergency Medicine; PCP Family Medicine
DX: S09.90XA Unspecified injury of head, initial encounter (principal); S16.1XXA Strain of muscle, fascia and tendon at neck level, initial encounter; Y04.2XXA Assault by strike against or bumped into by another person, initial encounter
CPT/HCPCS: 70450; 72125; 96372; 99284; J1885

== ENCOUNTER → 2021-09-27 11:26 | Outpatient (CLI) | payer OTHER, MEDICAID, SELFPAY | PROVIDERS: PCP Family Medicine; Referring Provider Family Medicine; Visit Provider Family Medicine | DX: N39.0 Urinary tract infection, site not specified (principal) | CPT/HCPCS: 87086 ==

== ENCOUNTER 2021-10-19 17:00 | Emergency (ER) | payer OTHER, MEDICAID, SELFPAY ==
[2021-10-19 17:07] VITALS: BP 154/95; PULSE 85; RESP 18; TEMP 36.6; O2SAT 100; BMI 28.2
--- NOTE | 2021-10-19 17:13 | DI.RAD.S_ITS ---
PROCEDURE: XR HIP W PEL IF DONE LT 2V INDICATIONS: fall TECHNIQUE: AP pelvis with lateral view(s) of the left hip(s). COMPARISON: [facility], CR, XR HIP W PEL IF DONE RT 2V, 06/28/2021, 16:31. FINDINGS: Bones: No fractures or dislocations. Pelvic ring appears intact. No suspicious bony lesions. Soft tissues: The visualized bowel gas pattern is normal. No suspicious soft tissue calcifications. IMPRESSION: No displaced fractures are seen on these plain films. If there is focal tenderness, or other clinical concern for a fracture not seen on these images in this patient with a given history of trauma, please consider a dedicated CT or a short-term followup plain film series (in 1-2 weeks) for further evaluation. Dictated by: Rodney Shearer M.D. on 10/19/2021 at 16:28 Approved by: Rodney Shearer M.D. on 10/19/2021 at 16:28
--- NOTE | 2021-10-19 18:27 | ED_ITS ---
HPI - Extremity Injury (Lower) General Chief Complaint: Extremity Injury, Lower Stated Complaint: fell hurt rt hip Time Seen by Provider: 10/19/21 18:01 Source: patient Mode of arrival: Ambulatory History of Present Illness HPI Narrative: The patient is a 51-year-old female who presents after a fall 4 days ago. She said she was going up stairs she somehow fell and landed on her. She denies being pushed. She did not hit her head. She has pain in her left thigh laterally. She is able to weightbear and walk. She says in the morning it is okay however throughout the day the pain gets worse. She has been taking tramadol and Tylenol as needed but is not helping. She has no numbness tingling or weakness. There is 1 particular area that is quite tender. Related Data Previous Rx's Medication Instructions Recorded duloxetine 60 mg capsule,delayed 60 mg PO DAILY #30 cap 05/24/21 release cyclobenzaprine 10 mg tablet 10 mg PO TID PRN #14 tab 07/20/21 hydroxyzine pamoate 25 mg capsule 25 mg PO TID PRN #60 cap 07/21/21 (Vistaril) gabapentin 300 mg capsule 300 mg PO .COMPLEX #90 cap 07/27/21 sertraline 50 mg tablet See Rx Instructions .ROUTE 08/02/21 .COMPLEX #30 tab amitriptyline 10 mg tablet See Rx Instructions .ROUTE 08/31/21 .COMPLEX #30 tab lisinopril 2.5 mg tablet 2.5 mg PO DAILY #30 tab 09/27/21 propranolol 10 mg tablet See Rx Instructions .ROUTE 09/27/21 .COMPLEX PRN #60 tab tramadol 50 mg tablet 50 mg PO BID PRN #30 tab 10/07/21 hydrocodone 5 mg-acetaminophen 325 1 tab PO Q6H PRN #10 tab 10/19/21 mg tablet Allergies Allergy/AdvReac Type Severity Reaction Status Date / Time citalopram [CITALOPRAM] AdvReac Mild Migraines Verified 10/07/21 09:20 Review of Systems Review of Systems Narrative: GENERAL: Denies chills,fever HEENT: Denies throat pain RESPIRATORY: Denies dyspnea, cough, wheezing CARDIOVASCULAR: Denies chest pain, palpitations GASTROINTESTINAL: Denies nausea, vomiting MUSCULOSKELETAL: See HPI SKIN: No rash, no laceration, no pruritus NEUROLOGIC: Denies weakness, dizziness, headache, numbness 8 point review of systems is negative except for those stated above and HPI Patient History Medical History Arm pain, right Chronic back pain (1999) Chronic headaches CTS (carpal tunnel syndrome) (2000) Depression (2004) Dysfunctional uterine bleeding Generalized anxiety disorder Migraines Neck pain Pancreatitis (2005) Scoliosis (1998) Surgical History Anesthesia complication History of surgery on arm (06/2010) Status post carpal tunnel release (03/2008) Status post endometrial ablation (08/2013) Status post hysterectomy with oophorectomy (01/2014) Status post laparoscopic cholecystectomy (2004) Status post subacromial decompression (1999) Status post tubal ligation (12/2004) Family History Father Age: 87 Hypertension Cancer Sister Breast cancer Grandmother Age: 90 Breast cancer Mother Age: 80 Stroke Hypertension Hyperlipidemia Osteoporosis Grandmother Breast cancer H/O bilateral mastectomy Family/Other Breast cancer Social History marital status: occupational status: employed Smoking Status: Never smoker Smoking Status: Never smoker alcohol intake frequency: a few times a month Substance Use Type: does not use Exam Initial Vital Signs Initial Vital Signs: Vital Signs Temperature 97.9 F 10/19/21 17:07 Pulse Rate 85 10/19/21 17:07 Respiratory Rate 18 10/19/21 17:07 Blood Pressure 154/95 H 10/19/21 17:07 Pulse Oximetry 100 10/19/21 17:07 GENERAL: Alert 51-year-old female CARDIOVASCULAR: peripheral pulses in tact, cap refill <2 sec RESPIRATORY: No respiratory distress, speaks in full sentences without difficulty EXTREMITIES: Normal range of motion, no clubbing or edema. Neurovascularly intact Left leg no contusion lateral thigh tender proximally works use put minimal swelling no erythema pinpoint tenderness knee and ankle are stable distal pedal pulses intact. NEUROLOGICAL: Cranial nerves II through XII grossly intact. Normal gait and speech. SKIN: Warm, dry, no petechiae, no rashes or lesions. Course Orders Ordered: ED Orders 10/19/21 17:13 XR hip w pel if done LT 2V Stat Discontinued Medications Ketorolac Tromethamine (Ketorolac 30 Mg/Ml Vial) 30 mg IM NOW ONE Stop: 10/19/21 18:34 Last Admin: 10/19/21 18:46 Dose: 30 mg Documented by: CHAYO Vital Signs Vital signs: Vital Signs - 8 hr 10/19/21 19:15 Pulse Rate 82 Respiratory Rate 18 Blood Pressure 136/81 Pulse Oximetry 97 [facility] - Extremity Injury (Lower) Imaging Data Extremity x-ray #1: Radiologist's Impression: PROCEDURE:? XR HIP W PEL IF DONE LT 2V ? INDICATIONS:? fall ? TECHNIQUE:? AP pelvis with lateral view(s) of the left hip(s).? ? COMPARISON:? [facility], , XR HIP W PEL IF DONE RT 2V, 06/28/2021, 16:31. ? FINDINGS:? ? Bones:? No fractures or dislocations.? Pelvic ring appears intact.? No suspic ious bony lesions.? ? Soft tissues:? The visualized bowel gas pattern is normal.? No suspicious soft tissue calcifications.? ? ? IMPRESSION:? ? No displaced fractures are seen on these plain films.? ? If there is focal tenderness, or other clinical concern for a fracture not seen on these images in this patient with a given history of trauma, please consider a dedicated CT or a short-term followup plain film series (in 1-2 weeks) for further evaluation.? Dictated by: Rodney Shearer M.D. on 10/19/2021 at 16:28 ?? [facility] Narrative Medical decision making narrative: The patient is tenderness on her lateral thigh x-ray is negative. She has been weight-bearing. She is given medication here recommend crutches if needed and Jesus wrap. All questions addressed Discharge Plan Departure Patient Disposition: Home Clinical Impression: Contusion of hip, left Instructions: DI for Contusion Activity Restrictions/Additional Instructions: *You have been diagnosed with contusion left hip *What to do: Try Jesus wrap and crutches as needed. Ice 20-30 minutes at least 3 times a day. *Continue to take medications as directed Ibuprofen 600 mg every 8 hours for [id number] [place] 1 tab every 6 hours only if needed for severe pain *Follow up with your primary care provider in 2-3 days or call [phone] *Return to ER if you should have inability to be off from her redness or any new, worsening or concerning symptoms CONTROLLED SUBSTANCE DISCHARGE (Narcotoic/benzodiazepine/Flexeril/Phenergan) 1. You have been prescribed narcotic medications, it does have acetaminophen/Tylenol/paracetamol in it, DO NOT TAKE MORE THAN 4,00mg in 24 hours of Tylenol. TRAMADOL DOES NOT CONTAIN TYLENOL 2. Please understand that we cannot provide further refills of narcotics, benzodiazepines or controlled substances through the ED and her pain management will need to be through your provider. 3. While on these medications you cannot drive or operate heavy machinery. 4. You cannot sign legal documents or perform any duties such as this. 5. As long as you're taking opiate pain medications he should also be taking a stool softener such as Colace, Dulcolax, MiraLAX or prune juice, to help avoid constipation. Prescriptions: New hydrocodone-acetaminophen 5-325 mg tablet 1 tab PO Q6H PRN (Reason: pain) Qty: 10 0RF No Action lisinopril 2.5 mg tablet 2.5 mg PO DAILY Qty: 30 1RF propranolol 10 mg tablet See Rx Instructions .ROUTE .COMPLEX PRN (Reason: anxiety) Qty: 60 2RF Dose Instruction: TAKE ONE TABLET BY MOUTH TWICE DAILY Rx Instructions: TAKE ONE TABLET BY MOUTH TWICE DAILY PRN; duloxetine 60 mg capsule,delayed release(DR/EC) 60 mg PO DAILY Qty: 30 11RF cyclobenzaprine 10 mg tablet 10 mg PO TID PRN (Reason: muscle spasm) Qty: 14 0RF hydroxyzine pamoate [Vistaril] 25 mg capsule 25 mg PO TID PRN (Reason: pain (scale score 4-6)) Qty: 60 1RF sertraline 50 mg tablet See Rx Instructions .ROUTE .COMPLEX Qty: 30 2RF Dose Instruction: TAKE ONE TABLET BY MOUTH ONE TIME DAILY Rx Instructions: TAKE ONE TABLET BY MOUTH ONE TIME DAILY amitriptyline 10 mg tablet See Rx Instructions .ROUTE .COMPLEX Qty: 30 2RF Dose Instruction: TAKE ONE TABLET BY MOUTH NIGHTLY AT BEDTIME Rx Instructions: TAKE ONE TABLET BY MOUTH NIGHTLY AT BEDTIME tramadol 50 mg tablet 50 mg PO BID PRN (Reason: pain) Qty: 30 0RF gabapentin 300 mg capsule 300 mg PO .COMPLEX Qty: 90 2RF Rx Instructions: 1-2 PO Tid to begin at HS and titrate to pain relief Referrals: Tiffany Gallagher DO [Primary Care Provider] -
[2021-10-19] MEDS: KETOROLAC 30 MG/ML VIAL IM (18:46)
[2021-10-19 19:15] VITALS: BP 136/81; PULSE 82; RESP 18; O2SAT 97
== END 2021-10-19 19:16 | disposition home or self-care (01) ==
PROVIDERS: Emergency Provider Emergency Medicine; PCP Family Medicine
DX: S70.02XA Contusion of left hip, initial encounter (principal); W10.9XXA Fall (on) (from) unspecified stairs and steps, initial encounter
CPT/HCPCS: 73502; 96372; 99283; J1885

== ENCOUNTER 2022-04-16 14:07 | Emergency (ER) | payer OTHER, MEDICAID, SELFPAY ==
[2022-04-16 14:27] VITALS: BP 127/78; PULSE 80; RESP 18; TEMP 37.1; O2SAT 100; BMI 27.1
--- NOTE | 2022-04-16 14:51 | DI.RAD.S_ITS ---
PROCEDURE: XR HIP W PEL IF DONE LT 2V INDICATIONS: left hip pain TECHNIQUE: 2 views of the hip were acquired. COMPARISON: [facility], , XR HIP W PEL IF DONE LT 2V, 10/19/2021, 17:06. FINDINGS: Bones: No fractures or dislocations. No suspicious bony lesions. The visualized pelvic ring appears intact. Soft tissues: No suspicious soft tissue calcifications or masses. IMPRESSION: Unremarkable left hip radiographs Approved by: Sergio Pina M.D. on 04/16/2022 at 15:19
--- NOTE | 2022-04-16 14:52 | ED_ITS ---
HPI - Back Pain/Injury <MARGUERITE Rodriguez - Last Filed: 04/16/22 16:30> General Chief Complaint: Back Pain/Injury Stated Complaint: hips/low back pain x2 days Time Seen by Provider: 04/16/22 14:38 Source: patient History of Present Illness HPI Narrative: 51-year-old female, nonsmoker, presents to the emergency department with left hip pain that has gradually worsened over the last month status post fall on concrete steps. Patient is scheduled to have right hip labrum surgery in 3 weeks. Patient reports that she has been having difficulty walking or even finding a position of comfort due to the left hip pain and swelling. Patient denies any recent trauma to the hip or any recent falls. Patient reports intermittent swelling left thigh. Related Data Previous Rx's Medication Instructions Recorded cyclobenzaprine 10 mg tablet See Rx Instructions .Route 11/09/21 .COMPLEX #14 tabs lisinopril 2.5 mg tablet 2.5 mg PO DAILY #90 tabs 11/11/21 hydroxyzine pamoate 25 mg capsule 25 mg PO TID PRN anxiety #30 caps 02/09/22 (Vistaril) propranolol 10 mg tablet See Rx Instructions .Route 02/09/22 .COMPLEX PRN anxiety #60 tabs sertraline 100 mg tablet 100 mg PO DAILY #30 tabs 02/24/22 amitriptyline 10 mg tablet See Rx Instructions .Route 02/28/22 .COMPLEX #30 tabs tramadol 50 mg tablet 50 mg PO BID PRN pain #30 tabs 04/06/22 oxycodone-acetaminophen 5 mg-325 1 tab PO Q6H PRN pain #10 tabs 04/16/22 mg tablet (Percocet) Allergies Allergy/AdvReac Type Severity Reaction Status Date / Time citalopram [CITALOPRAM] AdvReac Mild Migraines Verified 04/16/22 14:31 Review of Systems <MARGUERITE Rodriguez - Last Filed: 04/16/22 16:30> Review of Systems Narrative: Narrative: GENERAL: Denies chills, fatigue, fever, sweats. See HPI HEENT: Denies sinus pain, ear pain, sore throat, difficulty swallowing, dizziness. RESPIRATORY: Denies dyspnea, cough, wheezing, sputum. CARDIOVASCULAR: Denies chest pain, palpitations, edema. GASTROINTESTINAL: Denies nausea, vomiting, abdominal pain, diarrhea, constipation. : Denies dysuria, frequency, incontinence, hematuria, urinary retention, flank pain. MSK: Endorses left hip and upper thigh pain. Pain worsens with movement. SKIN: Denies rash, skin lesions, or pruritis. NEUROLOGIC: Denies weakness, dizziness, headache, numbness, confusion. PSYCHIATRIC: No concerning psychosocial issues. Patient History <MARGUERITE Rodriguez - Last Filed: 04/16/22 16:30> Medical History Arm pain, right Chronic back pain (1999) Chronic headaches CTS (carpal tunnel syndrome) (2000) Depression (2004) Dysfunctional uterine bleeding Essential hypertension Generalized anxiety disorder Migraines Neck pain Overweight (BMI 25.0-29.9) Pancreatitis (2005) Scoliosis (1998) Surgical History Anesthesia complication History of surgery on arm (06/2010) Status post carpal tunnel release (03/2008) Status post endometrial ablation (08/2013) Status post hysterectomy with oophorectomy (01/2014) Status post laparoscopic cholecystectomy (2004) Status post subacromial decompression (1999) Status post tubal ligation (12/2004) Family History Father Age: 88 Hypertension Cancer Sister Breast cancer Grandmother Age: 91 Breast cancer Mother Age: 81 Stroke Hypertension Hyperlipidemia Osteoporosis Grandmother Breast cancer H/O bilateral mastectomy Family/Other Breast cancer Social History marital status: occupational status: employed Smoking Status: Never smoker Smoking Status: Never smoker alcohol intake frequency: a few times a month Substance Use Type: does not use Exam <MARGUERITE Rodriguez - Last Filed: 04/16/22 16:30> Narrative Exam Narrative: Exam Narrative: GENERAL: This is a well-nourished, well-developed patient, in visible discomfort HEAD: Atraumatic. Normocephalic. EYES: Pupils equal round and reactive. Extraocular motions intact. No scleral icterus, injection or drainage. ENT: Nose without bleeding, purulent drainage. Throat without erythema, tonsillar hypertrophy or exudate. Airway patent. NECK: Trachea midline. No JVD or lymphadenopathy. Nontender. CARDIOVASCULAR: Regular rate and rhythm without murmurs, peripheral pulses intact, cap refill <2 sec. RESPIRATORY: Breath sounds equal and clear bilaterally. No wheezes, rales, or rhonchi. No cough. No increased respiratory effort. No accessory muscle use. GASTROINTESTINAL: Abdomen soft, non-tender, nondistended without guarding or rebound. No suprapubic pain. MSK: Moves all extremities. Limited range of motion of left hip due to pain. Neurovascularly intact. NEURO: A&O x 3. SKIN: Warm, dry, no rashes or lesions noted. Initial Vital Signs Initial Vital Signs: Vital Signs Temperature 98.8 F 04/16/22 14:27 Pulse Rate 80 04/16/22 14:27 Respiratory Rate 18 04/16/22 14:27 Blood Pressure 127/78 04/16/22 14:27 Pulse Oximetry 100 04/16/22 14:27 Oxygen Delivery Method 04/16/22 14:27 Reviewed Extrem Other: Hip: There is no obvious deformity. There is no redness, swelling or wound. Able to bear weight on each leg independently, but with pain. Tender over the greater trochanter. Active flexion and extension as well as lateral excursion are limited due to pain. There is no pain along the ilio-tibial band. Internal and external rotation is decreased due to pain. <Maxx Elena MD - Last Filed: 04/29/22 12:18> Initial Vital Signs Initial Vital Signs: Vital Signs Temperature 98.8 F 04/16/22 14:27 Pulse Rate 80 04/16/22 14:27 Respiratory Rate 18 04/16/22 14:27 Blood Pressure 127/78 04/16/22 14:27 Pulse Oximetry 100 04/16/22 14:27 Oxygen Delivery Method 04/16/22 14:27 Course <MARGUERITE Rodriguez - Last Filed: 04/16/22 16:30> Orders Ordered: Discontinued Medications Oxycodone/Acetaminophen (Oxycodone/Acetaminophen 5/325 Tablet) 1 tab PO NOW ONE Stop: 04/16/22 14:53 Last Admin: 04/16/22 15:04 Dose: 1 tab Documented By: AT Vital Signs Vital signs: Vital Signs - 8 hr 04/16/22 14:27 Temperature 98.8 F Pulse Rate 80 Respiratory Rate 18 Blood Pressure 127/78 Pulse Oximetry 100 Oxygen Delivery Method Room Air <Maxx Elena MD - Last Filed: 04/29/22 12:18> Orders Ordered: Discontinued Medications Oxycodone/Acetaminophen (Oxycodone/Acetaminophen 5/325 Tablet) 1 tab PO NOW ONE Stop: 04/16/22 14:53 Last Admin: 04/16/22 15:04 Dose: 1 tab Documented By: AT Vital Signs Vital signs: Vital Signs - 8 hr 04/16/22 14:27 Temperature 98.8 F Pulse Rate 80 Respiratory Rate 18 Blood Pressure 127/78 Pulse Oximetry 100 Oxygen Delivery Method Room Air MDM - Back Pain/Injury <MARGUERITE Rodriguez - Last Filed: 04/16/22 16:30> Imaging Data Extremity x-ray #1: Radiologist's Impression: XRay Report Signed Patient: Marissa Das MR#: [id number] : 1970 Acct:[id number] Age/Sex: 51 / F Date of Service: 04/16/22 Loc: ED Accession Number: [id number] ?? Procedure: XR hip w pel if done LT 2V Ordering Provider: Oziel Lange PROCEDURE:? XR HIP W PEL IF DONE LT 2V ? INDICATIONS:? left hip pain ? TECHNIQUE:? 2 views of the hip were acquired.? ? COMPARISON:? [facility], , XR HIP W PEL IF DONE LT 2V, 10/19/2021, 17:06. ? FINDINGS:? ? Bones:? No fractures or dislocations.? No suspicious bony lesions.? The vis ualized pelvic ring appears intact.? ? Soft tissues:? No suspicious soft tissue calcifications or masses.? ? IMPRESSION:? Unremarkable left hip radiographs ? ? ? Approved by: Sergio Pina M.D. on 04/16/2022 at 15:19? MDM Narrative Medical decision making narrative: 51-year-old female with complaints of left hip pain. X-ray results reveals normal hip. Patient given Percocet for pain prior to x-ray. We will discharge home with recommendations for NSAIDs, rice and pain medication. Instructed patient to follow up with her family doctor for possible referral to orthopedics if symptoms persist or worsen. Discussed plan of care with patient and , who were agreeable with course of action. Discharge Plan Departure Patient Disposition: Home Clinical Impression: Hip strain Instructions: DI for Hip Pain Activity Restrictions/Additional Instructions: *You have been diagnosed with a left hip strain. Your x-rays were normal. Recommend ibuprofen 600 mg 3 times a day with food and rice. Rest (modified activity), along with ice, compression wrap/splint-immobilize as directed and elevation above heart. I will give you a short course of pain medications for breakthrough pain. Please follow-up with your family doctor this week for possible referral to Orthopedics.. *What to do: *Please continue to take your regular medications as directed. [ ] New medication prescriptions sent to your pharmacy: [ ] [X] New medication written as a paper prescription [ ] No new medications given *Please follow up with your primary care provider in 2-3 days, call for an appointment. Let them know you were seen in the Emergency Department and that we ask that you be seen in follow up. We will electronically transmit a record of today's note if your PCP is in our system *If you do not have a primary care provider please contact the [facility] Resource line at [phone]. They will ask some questions about your medical history and help get you set up with a doctor in the community. ? Return to ER if you should have any new, worsening or concerning symptoms, such as worsening pain, severe headache, confusion, chest pain, difficulty breathing, fever greater than 101 F, shaking chills, persistent vomiting to the point that you cannot drink fluids, or other new or worsening symptoms. Prescriptions: New oxycodone-acetaminophen [Percocet] 5-325 mg tablet 1 tab PO Q6H PRN (Reason: pain) Qty: 10 0RF No Action hydroxyzine pamoate [Vistaril] 25 mg capsule 25 mg PO TID PRN (Reason: anxiety) Qty: 30 1RF propranolol 10 mg tablet See Rx Instructions .ROUTE .COMPLEX PRN (Reason: anxiety) Qty: 60 2RF Dose Instruction: TAKE ONE TABLET BY MOUTH TWICE DAILY Rx Instructions: TAKE ONE TABLET BY MOUTH TWICE DAILY PRN; sertraline 100 mg tablet 100 mg PO DAILY Qty: 30 5RF lisinopril 2.5 mg tablet 2.5 mg PO DAILY Qty: 90 3RF cyclobenzaprine 10 mg tablet See Rx Instructions .ROUTE .COMPLEX Qty: 14 0RF Dose Instruction: TAKE ONE TABLET BY MOUTH THREE TIMES DAILY NEEDED FOR MUSCLE SPASM Rx Instructions: TAKE ONE TABLET BY MOUTH THREE TIMES DAILY NEEDED FOR MUSCLE SPASM amitriptyline 10 mg tablet See Rx Instructions .ROUTE .COMPLEX Qty: 30 3RF Dose Instruction: TAKE ONE TABLET BY MOUTH NIGHTLY AT BEDTIME Rx Instructions: TAKE ONE TABLET BY MOUTH NIGHTLY AT BEDTIME tramadol 50 mg tablet 50 mg PO BID PRN (Reason: pain) Qty: 30 2RF Referrals: Tiffany Gallagher DO [Primary Care Provider] - Visit Report Forms: Patient Portal/API <Maxx Elean MD - Last Filed: 04/29/22 12:18> Cosign ED Attending Cosignature Attestation: I was immediately available in the department for consultation. This documentation has been reviewed and I agree with assessment and plan. Supervised by Maxx Elena MD
[2022-04-16] MEDS: OXYCODONE/ACETAMINOPHEN 5/325 TABLET 1 TAB PO (15:04)
== END 2022-04-16 16:36 | disposition home or self-care (01) ==
PROVIDERS: Emergency Provider Registered Nurse; PCP Family Medicine
DX: S73.102A Unspecified sprain of left hip, initial encounter (principal)
CPT/HCPCS: 73502; 99283

== ENCOUNTER → 2022-09-26 09:45 | Outpatient (CLI) | payer OTHER, MEDICAID, SELFPAY ==
[2022-09-26 10:35] LABS: COVID19 -Nasal RAPID Negative (Negative)
== END ==
PROVIDERS: PCP Family Medicine; Visit Provider Surgery
DX: Z01.812 Encounter for preprocedural laboratory examination (principal); Z20.822 Contact with and (suspected) exposure to COVID-19
CPT/HCPCS: 87635

== ENCOUNTER 2022-09-26 09:46 | Day surgery (SDC) | payer OTHER, MEDICAID, SELFPAY ==
[2022-09-26 10:44] VITALS: BP 97/66; PULSE 60; RESP 16; O2SAT 100
[2022-09-26 10:46] VITALS: BP 132/82; PULSE 73; RESP 16; TEMP 36.3; O2SAT 100; BMI 26.4
[2022-09-26] MEDS: LACTATED RINGERS 1,000 ML 42 ML IV (10:54)
--- NOTE | 2022-09-26 10:54 | PM.HP.1 ---
History of Present Illness History of Present Illness Date Patient Seen: 09/26/22 Time Patient Seen: 10:54 Chief complaint: Colonoscopy Narrative: Colon cancer screening. First colonoscopy, no family history or symptoms concerning for colon cancer. Patient History Medical History Arm pain, right Chronic back pain (1999) Chronic headaches CTS (carpal tunnel syndrome) (2000) Depression (2004) Dysfunctional uterine bleeding Essential hypertension Generalized anxiety disorder Migraines Neck pain Overweight (BMI 25.0-29.9) Pancreatitis (2005) Scoliosis (1998) Surgical History Anesthesia complication History of surgery on arm (06/2010) Status post carpal tunnel release (03/2008) Status post endometrial ablation (08/2013) Status post hysterectomy with oophorectomy (01/2014) Status post laparoscopic cholecystectomy (2004) Status post subacromial decompression (1999) Status post tubal ligation (12/2004) Family & Social History Family History Father Age: 88 Hypertension Cancer Sister Breast cancer Grandmother Age: 91 Breast cancer Mother Age: 81 Stroke Hypertension Hyperlipidemia Osteoporosis Grandmother Breast cancer H/O bilateral mastectomy Family/Other Breast cancer Social History: household members family,children Tobacco & Substance use: Smoking Status Never smoker alcohol intake frequency a few times a month Substance Use Type does not use Meds Home Medications and Allergies Home Medications Medication Instructions Recorded Confirmed Type sertraline 100 mg tablet 100 mg PO DAILY #30 tabs 02/24/22 09/26/22 Rx gabapentin 300 mg capsule 900 mg PO BEDTIME PRN pain #90 caps 05/29/22 09/26/22 Rx hydroxyzine pamoate 25 mg capsule 25 mg PO TID PRN anxiety #30 caps 05/29/22 09/26/22 Rx (Vistaril) propranolol 10 mg tablet See Rx Instructions .Route 06/30/22 09/26/22 Rx .COMPLEX PRN anxiety #60 tabs amitriptyline 10 mg tablet See Rx Instructions .Route 09/11/22 09/26/22 Rx .COMPLEX #30 tabs sodium sul 1.479 gram-potas ch See Rx Instructions PO PER PKG DIR 09/13/22 09/26/22 Rx 0.188 gram-magnes sul 0.225 gram #24 tabs tablet (Sutab) tramadol 50 mg tablet 50 mg PO BID PRN pain #30 tabs 09/21/22 09/26/22 Rx Allergies Allergy/AdvReac Type Severity Reaction Status Date / Time citalopram [CITALOPRAM] AdvReac Mild Migraines Verified 09/26/22 10:38 Review of Systems Review of Systems ROS: Yes All systems reviewed with the patient and are negative except as otherwise documented Exam Vital Signs (past 8 hours): - 09/26/22 10:46 Temperature 97.4 F L Pulse Rate 73 Respiratory Rate 16 Blood Pressure 132/82 Pulse Oximetry 100 Oxygen Delivery Method Room Air Oxygen Delivery Method Room Air Const General: cooperative and healthy appearing HENMT Head: normal to inspection, normocephalic and atraumatic Eyes General: appearance normal, both eyes and all related structures Sclera: sclerae normal Neck Neck: trachea midline Resp Effort & Inspection: normal respiratory effort and able to speak in complete sentences Cardio Rate: regular rate Rhythm: regular rhythm GI Palpation: soft Skin General: no rashes or lesions noted Neuro General: patient alert, patient awake and patient oriented x3 Extrem General: normal to inspection Psych Appearance: grossly normal Mental Status: mental status grossly normal Judgment: judgment good Assessment & Plan Assessment & Plan narrative: colon cancer screening using colonoscopy under MAC COVID-19 COVID-19 status: Negative Time Spent With Patient Time with patient: less than 30 minutes Critical Care time: I spent a total of [] minutes of critical care time on this patient's care today; this time is exclusive of procedural time.
--- NOTE | 2022-09-26 11:30 | PM.OP.COLON ---
Operative Date/Time/Diagnoses Date of procedure: 09/26/22 Time of procedure: 11:30 Pre-op diagnosis: Colon cancer screening Post-op diagnosis: same Procedure & Clinicians Study performed: Colonoscopy under MAC Same procedure as scheduled: Yes Indications: Colon cancer screening Surgeon: Gia Mohan Procedure Notes Procedure in detail: Preop diagnosis: Colon cancer screening Postop diagnosis: Same Operative procedure: Colonoscopy under MAC Surgeon: Maricruz Mohan MD Findings: Normal colonoscopy, no polyps, no diverticulosis Procedure: Patient placed in lateral position. Rectal exam performed showing normal tone no masses. Scope was inserted into the rectum and advanced to ileocecal valve with minimal difficulty. Insufflation extraction of the scope and the above findings. Retroflex was included in the rectum. Impression: Normal colonoscopy. No polyps, no diverticulosis. Plan: Repeat colonoscopy in 10 years unless otherwise indicated by change in family history or clinical condition Specimen(s): none sent Complications: none Impression: Normal colonoscopy. No polyps Post-procedure Recommendations: Colonoscopy in 10 years Follow up: as needed Disposition: PACU
[2022-09-26 11:34] VITALS: BP 96/60; PULSE 60; RESP 16; RESP 20; TEMP 36.6; TEMP 36.8; O2SAT 100; O2SAT 99
[2022-09-26 11:39] VITALS: BP 97/64; PULSE 60; RESP 16; O2SAT 100
[2022-09-26 11:50] VITALS: BP 106/65; PULSE 62; RESP 16; TEMP 36.6; O2SAT 100
--- NOTE | 2022-09-26 12:00 | SUR.PHASEII ---
pt ready for discharge. is stuck in traffic 30 mins away
[2022-09-26 12:15] VITALS: BP 119/70; PULSE 61; RESP 18; O2SAT 100
== END 2022-09-26 12:30 | disposition home or self-care (01) ==
PROVIDERS: PCP Family Medicine; Referring Provider Surgery; Visit Provider Surgery
PROC: 0DJD8ZZ Inspection of Lower Intestinal Tract, Via Natural or Artificial Opening Endoscopic (ICD-10-PCS; CPT 45378; principal; 2022-09-26 11:30)
DX: Z12.11 Encounter for screening for malignant neoplasm of colon (principal); Z20.822 Contact with and (suspected) exposure to COVID-19; Z01.812 Encounter for preprocedural laboratory examination
CPT/HCPCS: 45378; 87635; C9803; J2704

== ENCOUNTER → 2022-10-07 11:11 | Outpatient (CLI) | payer OTHER, MEDICAID, SELFPAY ==
--- NOTE | 2022-10-07 | DI.MG.S_ITS ---
BILATERAL DIGITAL SCREENING MAMMOGRAM 3D/2D WITH CAD: 10/07/2022 CLINICAL: Routine screening. Family history of breast cancer. Comparison is made to exams dated: 05/31/2015 mammogram, 10/23/2011 mammogram, and 04/20/2011 mammogram - [facility]. There are scattered areas of fibroglandular density in both breasts (category b / 25%-50% glandular tissue). Current study was also evaluated with a Computer Aided Detection (CAD) system. No significant masses, calcifications, or other findings are seen in either breast. There has been no significant interval change. IMPRESSION: NEGATIVE There is no mammographic evidence of malignancy. A 1 year screening mammogram is recommended. Based on the Tyrer Cuzick model (a risk assessment model) the patient's lifetime risk is 7.1% and her 10 year risk is 2.0%. According to the ACR, ACS, and NCCN guidelines, an annual breast MRI exam along with mammogram is recommended if the patient's lifetime risk is 20% or greater. This exam was interpreted at Station ID: [id number]. NOTE: For mammograms, a report in lay terms will be sent to the patient. Approximately 15% of breast malignancies will not be visualized mammographically. In the management of a palpable breast mass, a negative mammogram must not discourage biopsy of a clinically suspicious lesion. Electronically Signed By: Rene calderón/yue:10/09/2022 08:26:43 letter sent: Normal Exam ACR BI-RADS Category 1: Negative [id number]
== END ==
PROVIDERS: PCP Family Medicine; Referring Provider Family Medicine; Visit Provider Family Medicine
DX: Z12.31 Encounter for screening mammogram for malignant neoplasm of breast (principal); Z80.3 Family history of malignant neoplasm of breast
CPT/HCPCS: 77063; 77067

== ENCOUNTER → 2022-11-25 10:35 | Outpatient (CLI) | payer OTHER, MEDICAID, SELFPAY ==
[2022-11-25 11:10] LABS: Add Manual Diff / Slide Review NO; Basophils Absolute Auto 100 /uL (0-100); Basophils Percent Auto 0.9 % (0-2); Eosinophils Absolute Auto 200 /uL (0-450); Eosinophils Percent Auto 2.5 % (2-4); Hematocrit 38.8 % (36-46); Hemoglobin 12.6 g/dL (12.0-16.0); Lymphocytes Absolute Auto 1800 /uL (1100-4500); Lymphocytes Percent Auto 28.3 % (25-40); Mean Corpuscular HGB Conc 32.5 % (30-36); Mean Corpuscular Hemoglobin 27.4 PG (26-34); Mean Corpuscular Volume 84.3 fL (80-100); Monocytes Absolute Auto 500 /uL (0-900); Monocytes Percent Auto 8.3 % (3-14); Neutrophils Absolute Auto 3800 /uL (1500-7000); Platelet Count 232 X10^3/uL (150-400); Red Cell Distribution Width 14.2 % (11.6-14.8); White Blood Cell Count 6.3 X10^3/uL (4.5-11.0)
[2022-11-25 11:38] LABS: Alanine Aminotransferase 18 IU/L (<35); Albumin 4.2 g/dL (3.5-5.0); Albumin Globulin Ratio 1.3 (1.0-2.8); Alkaline Phosphatase 94 U/L (38-126); Aspartate Aminotransferase 30 IU/L (14-36); BUN Creatinine Ratio 14.5 (6-22); Bilirubin Total 0.6 mg/dL (0.2-1.3); Blood Urea Nitrogen 9 mg/dL (7-17); Calcium 8.8 mg/dL (8.4-10.2); Carbon Dioxide 30 mmol/L (22-32); Chloride 105 mmol/L (98-107); Cholesterol 211 mg/dL (140-199); Estimated Glomerular Filt Rate > 60 mL/min (>60); Globulin 3.3 g/dL (1.7-4.1); Glucose 93 mg/dL (70-100); HDL Cholesterol 67 mg/dL (40-60); HEMOLYSIS < 15 (0-50); LDL Cholesterol Calculated 129 mg/dL (<100); Potassium 4.5 mmol/L (3.4-5.1); Sodium 140 mmol/L (137-145); Total Protein 7.5 g/dL (6.3-8.2); Triglycerides 77 mg/dL (35-150)
== END ==
PROVIDERS: PCP Family Medicine; Referring Provider Family Medicine; Visit Provider Family Medicine
DX: Z13.220 Encounter for screening for lipoid disorders (principal); E66.3 Overweight
CPT/HCPCS: 36415; 80053; 80061; 85025

== ENCOUNTER 2023-03-14 16:15 | Emergency (ER) | payer OTHER, MEDICAID, SELFPAY ==
[2023-03-14 16:16] VITALS: BP 142/89; PULSE 92; RESP 16; TEMP 36.3; O2SAT 100; BMI 26.6
--- NOTE | 2023-03-14 16:27 | DI.RAD.S_ITS ---
PROCEDURE: XR HIP W PEL IF DONE RT 2V INDICATIONS: s/p hip surg, hip pain after bending TECHNIQUE: AP pelvis and lateral view of the 2 hip acquired. COMPARISON: [facility], [place], XR HIP W PEL IF DONE LT 2V, 04/16/2022, 15:10. [facility], CR, XR HIP W PEL IF DONE LT 2V, 10/19/2021, 17:06. FINDINGS: Bones: Patient is status post right hip arthroplasty, with hardware components in expected positions. The hip joint appears congruent. The visualized bony structures appear intact. Soft tissues: Overlying postoperative changes are noted. No suspicious soft tissue densities. IMPRESSION: Expected postoperative appearance of the right total hip arthroplasty. No hardware complication. Dictated by: Vinh Siddiqui M.D. on 03/14/2023 at 16:59 Approved by: Vinh Siddiqui M.D. on 03/14/2023 at 16:59
--- NOTE | 2023-03-14 17:31 | ED.EXTPRO ---
HPI - Extremity Problem <MARGUERITE Rock - Last Filed: 03/14/23 17:48> General Chief complaint: Extremity Problem,Nontraumatic Stated complaint: rt hip pain s/p surgery 01/22/23 Time Seen by Provider: 03/14/23 17:20 History of Present Illness HPI Narrative: This 52-year-old female with history of degenerative joint disease and right hip replacement on 01/25/[address] Bearden who presents to the emergency department after hyperflexion injury of her right hip and causing right-sided groin and hip pain, burning, states it is painful with ambulation. She feels like she has some nerve pain, and she does endorse a history of chronic low back pain with sciatica occasionally. She denies any numbness or tingling, denies any weakness, denies any traumatic injury. Related Data Previous Rx's Medication Instructions Recorded meloxicam 7.5 mg tablet 7.5 mg PO DAILY #30 tabs 11/24/22 tramadol 50 mg tablet 50 mg PO BID PRN pain #30 tabs 12/18/22 propranolol 10 mg tablet See Rx Instructions .Route 01/11/23 .COMPLEX #60 tabs gabapentin 300 mg capsule See Rx Instructions .Route 03/06/23 .COMPLEX #90 caps hydroxyzine pamoate 25 mg capsule See Rx Instructions .Route 03/06/23 .COMPLEX #30 caps gabapentin 100 mg capsule 100 mg PO TID PRN sharp nerve pain 03/14/23 #20 caps hydrocodone 5 mg-acetaminophen 325 1 tab PO Q6H PRN pain #10 tabs 03/14/23 mg tablet lidocaine 5 % topical patch 1 patch topical DAILY PRN pain #30 03/14/23 (Lidoderm) ea sertraline 100 mg tablet See Rx Instructions .Route 03/15/23 .COMPLEX #30 tabs Allergies Allergy/AdvReac Type Severity Reaction Status Date / Time citalopram [CITALOPRAM] AdvReac Mild Migraines Verified 11/24/22 14:12 Review of Systems <MARGUERITE Rock - Last Filed: 03/14/23 17:48> Review of Systems ROS Unobtainable: All systems reviewed & are unremarkable except as noted in HPI and below Patient History <MARGUERITE Rock - Last Filed: 03/14/23 17:48> Medical History Arm pain, right Chronic back pain (1999) Chronic headaches CTS (carpal tunnel syndrome) (2000) Depression (2004) Dysfunctional uterine bleeding Essential hypertension Generalized anxiety disorder Migraines Neck pain Overweight (BMI 25.0-29.9) Pancreatitis (2005) Scoliosis (1998) Surgical History Anesthesia complication History of surgery on arm (06/2010) Status post carpal tunnel release (03/2008) Status post endometrial ablation (08/2013) Status post hysterectomy with oophorectomy (01/2014) Status post laparoscopic cholecystectomy (2004) Status post subacromial decompression (1999) Status post tubal ligation (12/2004) Family History Father Age: 88 Hypertension Cancer Sister Breast cancer Grandmother Age: 92 Breast cancer Mother Age: 81 Stroke Hypertension Hyperlipidemia Osteoporosis Grandmother Breast cancer H/O bilateral mastectomy Family/Other Breast cancer Social History marital status: household members: family and children occupational status: employed Smoking Status: Never smoker Smoking Status: Never smoker alcohol intake frequency: a few times a month Substance Use Type: does not use Exam <MARGUERITE Rock - Last Filed: 03/14/23 17:48> Narrative Exam Narrative: Reviewed vitals signs and nursing notes. General: Pleasant, sitting upright, in no acute distress, well groomed, afebrile HEENT: symmetrical facial expressions, moist mucous membranes, neck is supple CV: regular rate and rhythm, warm extremities Respiratory: normal work of breathing, without tachypnea or hypoxia. GI: abdomen soft, nondistended, without CVA tenderness bilaterally. MSK: moves all extremities, no weakness, normal tone, ambulatory without deficit, lumbar spine is nontender to palpation, no evidence of ecchymosis, erythema, or abnormal right hip, patient is ambulatory without deficit, complains of pain most when in a flexed 90 degree position. Skin: brisk capillary refill, without rash or wound Neuro: clear speech and normal cognition, A&O x3, GCS 15, no focal motor or sensation deficits Initial Vital Signs Initial Vital Signs: Vital Signs Temperature 97.4 F L 03/14/23 16:16 Pulse Rate 92 H 03/14/23 16:16 Respiratory Rate 16 03/14/23 16:16 Blood Pressure 142/89 H 03/14/23 16:16 Pulse Oximetry 100 03/14/23 16:16 Oxygen Delivery Method Room Air 03/14/23 16:16 <Maxx Elena MD - Last Filed: 03/19/23 08:44> Initial Vital Signs Initial Vital Signs: Vital Signs Temperature 97.4 F L 03/14/23 16:16 Pulse Rate 92 H 03/14/23 16:16 Respiratory Rate 16 03/14/23 16:16 Blood Pressure 142/89 H 03/14/23 16:16 Pulse Oximetry 100 03/14/23 16:16 Oxygen Delivery Method Room Air 03/14/23 16:16 Course <MARGUERITE Rock - Last Filed: 03/14/23 17:48> Orders Ordered: Discontinued Medications Hydrocodone Bitart/Acetaminophen (Hydrocodone/Acet 5/325 Tablet) 1 tab PO NOW ONE Stop: 03/14/23 17:30 Last Admin: 03/14/23 17:41 Dose: 1 tab Documented By: NICOLÁS Gabapentin (Gabapentin 100 Mg Capsule) 100 mg PO NOW ONE Stop: 03/14/23 17:30 Last Admin: 03/14/23 17:41 Dose: 100 mg Documented By: NICOLÁS Ketorolac Tromethamine (Ketorolac 30 Mg/Ml Vial) 15 mg IM NOW ONE Stop: 03/14/23 17:30 Last Admin: 03/14/23 17:42 Dose: 15 mg Documented By: NICOLÁS Lidocaine (Lidocaine Patch 1 Each Adh..Patch) 1 each TOP NOW ONE Stop: 03/14/23 17:30 Last Admin: 03/14/23 17:41 Dose: 1 each Documented By: NICOLÁS Prednisone (Prednisone 20 Mg Tablet) 40 mg PO NOW ONE Stop: 03/14/23 17:30 Last Admin: 03/14/23 17:45 Dose: 40 mg Documented By: NICOLÁS Vital Signs Vital signs: Vital Signs - 8 hr 03/14/23 16:16 Temperature 97.4 F L Pulse Rate 92 H Respiratory Rate 16 Blood Pressure 142/89 H Pulse Oximetry 100 Oxygen Delivery Method Room Air <Maxx Elena MD - Last Filed: 03/19/23 08:44> Orders Ordered: Discontinued Medications Hydrocodone Bitart/Acetaminophen (Hydrocodone/Acet 5/325 Tablet) 1 tab PO NOW ONE Stop: 03/14/23 17:30 Last Admin: 03/14/23 17:41 Dose: 1 tab Documented By: NICOLÁS Gabapentin (Gabapentin 100 Mg Capsule) 100 mg PO NOW ONE Stop: 03/14/23 17:30 Last Admin: 03/14/23 17:41 Dose: 100 mg Documented By: NICOLÁS Ketorolac Tromethamine (Ketorolac 30 Mg/Ml Vial) 15 mg IM NOW ONE Stop: 03/14/23 17:30 Last Admin: 03/14/23 17:42 Dose: 15 mg Documented By: NICOLÁS Lidocaine (Lidocaine Patch 1 Each Adh..Patch) 1 each TOP NOW ONE Stop: 03/14/23 17:30 Last Admin: 03/14/23 17:41 Dose: 1 each Documented By: NICOLÁS Prednisone (Prednisone 20 Mg Tablet) 40 mg PO NOW ONE Stop: 03/14/23 17:30 Last Admin: 03/14/23 17:45 Dose: 40 mg Documented By: NICOLÁS Vital Signs Vital signs: Vital Signs - 8 hr 03/14/23 16:16 Temperature 97.4 F L Pulse Rate 92 H Respiratory Rate 16 Blood Pressure 142/89 H Pulse Oximetry 100 Oxygen Delivery Method Room Air MDM - Extremity (Nontraumatic) <Chelo Delaney [facility] - Last Filed: 03/14/23 17:48> Imaging Data Extremity x-ray #1: Radiologist's Impression: [address] [address] XRay Report Signed Patient: Marissa Das MR#: [id number] : 1970 Acct:[id number] Age/Sex: 52 / F Date of Service: 03/14/23 Loc: ED Accession Number: [id number] ?? Procedure: XR hip w pel if done RT 2V Ordering Provider: Maxx Elena MD PROCEDURE:? XR HIP W PEL IF DONE RT 2V ? INDICATIONS:? s/p hip surg, hip pain after bending ? TECHNIQUE:? AP pelvis and lateral view of the 2 hip acquired.? ? COMPARISON:? [facility], CR, XR HIP W PEL IF DONE LT 2V, 04/16/2022, 15:10.? [facility], CR, XR HIP W PEL IF DONE LT 2V, 10/19/2021, 17:06. ? FINDINGS:? ? Bones:? Patient is status post right hip arthroplasty, with hardware components in expected positions.? The hip joint appears congruent.? The visualized bony structures appear intact.? ? Soft tissues:? Overlying postoperative changes are noted.? No suspicious soft tissue densities.? ? ? IMPRESSION:? Expected postoperative appearance of the right total hip arthroplasty.? No hardware complication. ? Dictated by: Vinh Siddiqui M.D. on 03/14/2023 at 16:59 ? ? Approved by: Vinh Siddiqui M.D. on 03/14/2023 at 16:59 ? MDM Narrative Medical decision making narrative: Chief Complaint: Right hip pain after injury 3 days ago Primary historian: Patient Multiple etiologies for patient's complaint considered including, but not limited to: Hardware abnormality, disc injury/herniation, radiculopathy, muscle strain, chronic pain, disc disease, spinal stenosis, ligamental injury, osteoarthritis, degenerative disc disease, spondyloarthropathy I have independently reviewed the patient's vital signs and nursing notes as well as prior records if available. My interpretation of imaging: X-ray does not show evidence of hardware abnormality, expected postoperative appearance, right total hip arthroplasty without abnormality Course of care: Suspect this is partially lumbar radiculopathy status post injury, and the other part is hyperflexion injury without joint injury or abnormality to the hardware. Patient any weakness, numbness, has sharp right hip pain, this was improved with prednisone, gabapentin, hydrocodone, Toradol and topical lidocaine. X-rays negative for acute abnormality. Patient's pain was treated with Toradol, gabapentin, hydrocodone, lidocaine patch, and prednisone. Recommend she continue this course, eat food with her medications, follow-up with her orthopedist, this should start to get better soon with ice, rest, medication as needed for acute pain. Social considerations that may affect disposition: none Questions are addressed and there is agreement with the plan and for follow-up. I consulted with the ED attending physician Dr. Elena as needed for higher level of care considerations and they were available for discussion and recommendations regarding plan of care and diagnostic testing. Patient is appropriate for outpatient management. Discharge Plan Departure Patient Disposition: Home Clinical Impression: Acute hip pain Qualifiers: Laterality: right Qualified Code(s): M25.551 - Pain in right hip Instructions: DI for Lumbar Radiculopathy, DI for Hip Pain Activity Restrictions/Additional Instructions: *You have been diagnosed with hip pain without evidence of injury to your arthroplasty or joint. Please use the pain pills as needed, please also consider using ice, rest, topical lidocaine patches, and occasional ibuprofen with food and water as tolerated. Use gabapentin for sharp pain it feels like a Zinger or shooting like pain, use hydrocodone as needed for pain. Prednisone will decrease inflammation of the nerve root. Please stay hydrated, try to avoid overuse or re-injury. I hope you feel better soon, follow-up with your primary care provider and/or your orthopedic surgeon as needed. *What to do: *Please continue to take your regular medications as directed. [ x] New medication prescriptions sent to your pharmacy: [[facility] [place] ] [ ] New medication written as a paper prescription [ ] No new medications given *Please call and schedule follow up with your primary care provider in 2-3 days, at least for an update. Let them know you were seen in the Emergency Department for the above problem. We will electronically transmit a record of today's note if your PCP or specialist is in our system. *If you do not have a primary care provider please contact [phone] to establish care with one of the [facility] primary care providers. *Return to the Emergency Department for worsening symptoms, inability to keep liquids down, fever greater than 101F, chills, or other concerning symptom. Prescriptions: New lidocaine [Lidoderm] 5 % adhesive patch,medicated 1 patch topical DAILY PRN (Reason: pain) Qty: 30 0RF Rx Instructions: leave on most painful area for up to 12 hrs hydrocodone-acetaminophen 5-325 mg tablet 1 tab PO Q6H PRN (Reason: pain) Qty: 10 0RF gabapentin 100 mg capsule 100 mg PO TID PRN (Reason: sharp nerve pain) Qty: 20 0RF No Action meloxicam 7.5 mg tablet 7.5 mg PO DAILY Qty: 30 0RF tramadol 50 mg tablet 50 mg PO BID PRN (Reason: pain) Qty: 30 2RF propranolol 10 mg tablet See Rx Instructions .ROUTE .COMPLEX Qty: 60 1RF Dose Instruction: TAKE ONE TABLET BY MOUTH TWICE DAILY NEEDED for anxiety Rx Instructions: TAKE ONE TABLET BY MOUTH TWICE DAILY NEEDED for anxiety hydroxyzine pamoate 25 mg capsule See Rx Instructions .ROUTE .COMPLEX Qty: 30 1RF Dose Instruction: TAKE ONE CAPSULE BY MOUTH THREE TIMES A DAY NEEDED FOR ANXIETY Rx Instructions: TAKE ONE CAPSULE BY MOUTH THREE TIMES A DAY NEEDED FOR ANXIETY gabapentin 300 mg capsule See Rx Instructions .ROUTE .COMPLEX Qty: 90 1RF Dose Instruction: TAKE THREE CAPSULES BY MOUTH NIGHTLY AT BEDTIME as needed for pain Rx Instructions: TAKE THREE CAPSULES BY MOUTH NIGHTLY AT BEDTIME as needed for pain sertraline 100 mg tablet See Rx Instructions .ROUTE .COMPLEX Qty: 30 11RF Dose Instruction: TAKE ONE TABLET BY MOUTH ONE TIME DAILY Rx Instructions: TAKE ONE TABLET BY MOUTH ONE TIME DAILY Referrals: Oziel Gonzalez DO [Non-Staff] - Tiffany Gallagher DO [Primary Care Provider] - Stand Alone Forms: Patient Portal/API <Maxx Elena MD - Last Filed: 03/19/23 08:44> Cosign ED Attending Cosignature Attestation: I was immediately available in the department for consultation. ?This documentation has been reviewed and I agree with assessment and plan. Supervised by Maxx Elena MD
[2023-03-14] MEDS: GABAPENTIN 100 MG CAPSULE PO (17:41)
[2023-03-14] MEDS: LIDOCAINE PATCH 1 EACH ADH..PATCH TOP (17:41)
[2023-03-14] MEDS: HYDROCODONE/ACET 5/325 TABLET 1 TAB PO (17:41)
[2023-03-14] MEDS: KETOROLAC 30 MG/ML VIAL 15 MG IM (17:42)
[2023-03-14] MEDS: predniSONE 20 MG TABLET 40 MG PO (17:45)
[2023-03-14 18:22] VITALS: BP 119/64; PULSE 76; RESP 16; O2SAT 98
== END 2023-03-14 18:22 | disposition home or self-care (01) ==
PROVIDERS: Emergency Provider Nurse Practitioner Critical Care Medicine; PCP Family Medicine
DX: M25.551 Pain in right hip (principal); Z96.641 Presence of right artificial hip joint
CPT/HCPCS: 73502; 96372; 99283; J1885

== ENCOUNTER 2023-05-02 15:15 | Outpatient (RCR) | payer OTHER, MEDICAID, SELFPAY ==
--- NOTE | 2023-04-25 08:35 | PT.OIE ---
Current Diagnoses Pain in right hip (04/25/23) Trochanteric bursitis, right hip (04/25/23) Presence of right artificial hip joint (04/25/23) Past Medical History (Last Reviewed 03/14/23 @ 17:33 by Chelo Delaney [facility]) Arm pain, right Chronic back pain (1999) Chronic headaches CTS (carpal tunnel syndrome) (2000) Depression (2004) Dysfunctional uterine bleeding Essential hypertension Generalized anxiety disorder Migraines Neck pain Overweight (BMI 25.0-29.9) Pancreatitis (2005) Scoliosis (1998) Past Surgical History (Last Reviewed 03/14/23 @ 17:33 by Chelo Delaney [facility]) Anesthesia complication History of surgery on arm (06/2010) Status post carpal tunnel release (03/2008) Status post endometrial ablation (08/2013) Status post hysterectomy with oophorectomy (01/2014) Status post laparoscopic cholecystectomy (2004) Status post subacromial decompression (1999) Status post tubal ligation (12/2004) Visit Care Team Role Provider Type Tiffany Gallagher DO Family Provider Physician Primary Care Provider Specialty: Family Practice Address: [address] [place] [address], [id number] Email: [email or web address] Oziel Gonzalez DO Attending Provider Non-Staff Referring Provider Specialty: Orthopedics Address: [address] [place] [address], [id number] Email: Physical Therapy Initial Evaluation PT-OP-A Visit Information Start: 04/24/23 10:51 Freq: Status: Active Protocol: Document 04/25/23 07:15 ED (Rec: 04/25/23 08:31 ED [id number]) Out-Patient Physical Therapy Visit Information Visit Information Visit Type Initial Evaluation Visit Note 10/10 Visit Start Time 07:30 Visit Stop Time 08:15 Total Visit Minutes 45 Visit Number 1 Number of ENTERPRISE SERVICES MANAGER Visits 0 Evaluation Information Evaluation Date 04/25/23 Precautions Precautions n/a PT-OP-B Current Condition Start: 04/24/23 10:51 Freq: Status: Active Protocol: Document 04/25/23 07:15 ED (Rec: 04/25/23 08:31 ED [id number]) Current Condition History of Current Condition Onset Date 01/25/23 Current Complaints R hip pain History of Current Condition Pt had R ISAÍAS (anterior) on . She notes that she has anterior leg pain and sometimes lateral. The pain is mostly proximal but sometimes will go all the way down to her knee. Pt notes that she is unable to descend stairs w/ step through pattern d/t weakness and fear. Pt notes she is apprehensive and fearful of hurting herself d/t the pain. She is seeing a chiropractor 3x/week right now but they have not been treating her hip per patient. 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 She can have days where she has no pain. Patient Reported Progress Same Patient Questionnaires Lower Extremity Functional Scale LEFS Impairment 40 to 59% Impaired (Score 32- 47) OP-PT Pain Assessment Location R hip Pain Location Details R anterior hip, R lateral hip Intensity 4 Scale Used Numeric (0 - 10) Frequency Intermittent Radiating Location to knee Pain Aggravating Factors Position,Activity,Bending PT-OP-E Functional Tests Start: 04/24/23 10:51 Freq: Status: Active Protocol: Document 04/25/23 07:15 ED (Rec: 04/25/23 08:31 ED [id number]) Functional Tests 30 Second Sit to Stand Test Score 9 Comments pain in anterior hip during concentric portion PT-OP-Q Treatments Start: 04/24/23 10:51 Freq: Status: Active Protocol: Document 04/25/23 07:15 ED (Rec: 04/25/23 08:31 ED [id number]) Therapeutic Exercises Supine Exercises bridge Supine Exercise Name bridge Reps/Minutes 3x10 Prone Exercises prone quad stretch Prone Exercise Name quad stretch Side right Equipment Used rope Reps/Minutes x30-60 seconds Sitting Exercises quad stretch Sitting Exercise Name sitting quad stretch Side right Reps/Minutes x30-60'' Therapeutic Activity Therapeutic Activity sit<>stands Name STS Reps/Minutes 3x10 PT-OP-T Assessment and Plan Start: 04/24/23 10:51 Freq: Status: Active Protocol: Document 04/25/23 07:15 ED (Rec: 04/25/23 08:31 ED [id number]) Physical Therapy Assessment Rehab Potential Rehabilitation Potential Good Evaluation Complexity Number of Personal Factors/Comorbidities 1-2 Number of Body Systems Impaired 3 Clinical Presentation at Evaluation Stable Impairments Impairments Functional Activities,Pain, Sensation,Strength Goals Three Impairment stairs Short Term Goal (STG) Pt will be able to perform UE supported [place] step ups w/ o R hip pain. STG Duration 3 weeks Complex Case Manager Goal (LTG) Pt will be able to negotiate steps w/ step through gait pattern and no UE support. LTG Duration 6 weeks. 2 Impairment HEP Short Term Goal (STG) Pt will report performing HEP >3 days/weeks for 2 weeks. STG Duration 2 weeks Retirement Goal (LTG) Pt will report performing HEP >3 days/week for 5 weeks. LTG Duration 5 weeks One Impairment Pain Short Term Goal (STG) Patient will report pain <4/10 during repeated sit<>stands STG Duration 3 weeks Complex Case Manager Goal (LTG) Pt will report no pain in R hip during repeated sit<> stands. LTG Duration 3 weeks Assessment Summary Assessment Pt reported to PT w/ complaints of R anterior and lateral hip pain that she rated 4/10 on average for pain . Pt had noticeable tautness in R quadriceps and tenderness to palpation along anterior thigh and lateral thigh. Pt felt relief in anterior hip pain following quad stretch in bridge position or while in sitting position. Pt currently unable to descend stairs using step through pattern likely d/t muscle weakness in R LE. Pt provided initial HEP of : 5-15 minute walks, bridges, single leg bridges, quad stretch, and repeated sit <>stands which she was able to do c/o pain. Physical Therapy Plan Frequency and Duration Frequency of Treatment 2x/Week Duration of treatment (weeks) 10 Plan of Care Start Date 04/25/23 Plan of Care End Date 07/24/23 Therapeutic Interventions Therapeutic Interventions Balance Training,Gait Training ,Home Exercise Program,Manual Therapy,Neuromuscular Re- education,Patient/Caregiver Education,Taping,Therapeutic Activities,Therapeutic Exercises Modalities Cold Pack/Ice Massage,Electric Stimulation,Hot Packs Next Visit Focus/Plan Next Note Type Treatment Note Next Visit Plan review HEP (sit<>stands, bridge, quad stretch), LAQ, butt param
--- NOTE | 2023-04-25 08:58 | PT.OPPOC ---
Physical, Occupational & Speech Therapy At [facility] Current Diagnoses Pain in right hip (04/25/23) Trochanteric bursitis, right hip (04/25/23) Presence of right artificial hip joint (04/25/23) Visit Care Team Role Provider Type Tiffany Gallagher DO Family Provider Physician Primary Care Provider Specialty: Family Practice Address: [address] [place] [address], [facility], [place], [address] Email: [email or web address] Oziel Gonzalez DO Attending Provider Non-Staff Referring Provider Specialty: Orthopedics Address: [address] [facility], [place], [address] Email: Plan Of Care PT-OP-T Assessment and Plan Start: 04/24/23 10:51 Freq: Status: Active Protocol: Document 04/25/23 07:15 ED (Rec: 04/25/23 08:31 ED [id number]) Physical Therapy Assessment Rehab Potential Rehabilitation Potential Good Evaluation Complexity Number of Personal Factors/Comorbidities 1-2 Number of Body Systems Impaired 3 Clinical Presentation at Evaluation Stable Impairments Impairments Functional Activities,Pain, Sensation,Strength Goals Three Impairment stairs Short Term Goal (STG) Pt will be able to perform UE supported [place] step ups w/ o R hip pain. STG Duration 3 weeks Blender / Cook Goal (LTG) Pt will be able to negotiate steps w/ step through gait pattern and no UE support. LTG Duration 6 weeks. 2 Impairment HEP Short Term Goal (STG) Pt will report performing HEP >3 days/weeks for 2 weeks. STG Duration 2 weeks Group Home Goal (LTG) Pt will report performing HEP >3 days/week for 5 weeks. LTG Duration 5 weeks One Impairment Pain Short Term Goal (STG) Patient will report pain <4/10 during repeated sit<>stands STG Duration 3 weeks Group Home Goal (LTG) Pt will report no pain in R hip during repeated sit<> stands. LTG Duration 3 weeks Assessment Summary Assessment Pt reported to PT w/ complaints of R anterior and lateral hip pain that she rated 4/10 on average for pain . Pt had noticeable tautness in R quadriceps and tenderness to palpation along anterior thigh and lateral thigh. Pt felt relief in anterior hip pain following quad stretch in bridge position or while in sitting position. Pt currently unable to descend stairs using step through pattern likely d/t muscle weakness in R LE. Pt provided initial HEP of : 5-15 minute walks, bridges, single leg bridges, quad stretch, and repeated sit <>stands which she was able to do c/o pain. Physical Therapy Plan Frequency and Duration Frequency of Treatment 2x/Week Duration of treatment (weeks) 10 Plan of Care Start Date 04/25/23 Plan of Care End Date 07/24/23 Therapeutic Interventions Therapeutic Interventions Balance Training,Gait Training ,Home Exercise Program,Manual Therapy,Neuromuscular Re- education,Patient/Caregiver Education,Taping,Therapeutic Activities,Therapeutic Exercises Modalities Cold Pack/Ice Massage,Electric Stimulation,Hot Packs Next Visit Focus/Plan Next Note Type Treatment Note Next Visit Plan review HEP (sit<>stands, bridge, quad stretch), LAQ, butt busters Plan of Care Dates Plan of Care Start Date 04/25/23 Plan of Care End Date 07/24/23 Electronically Signed by: Sergio Agosto, PT 04/25/23 0858 If you are in agreement with this Plan of Care, please return a signed and dated copy. I have reviewed this Plan of Care and certify that the skilled therapy services above are required to meet the patient?s needs. Physician Signature Date Printed Name and Credentials Clinical Instructor Signature Printed Name and Credentials
--- NOTE | 2023-04-27 08:15 | PT.OTN ---
Current Diagnoses Pain in right hip (04/27/23) Trochanteric bursitis, right hip (04/27/23) Presence of right artificial hip joint (04/27/23) Physical Therapy Treatment Note PT-OP-A Visit Information Start: 04/24/23 10:51 Freq: Status: Active Protocol: Document 04/27/23 07:28 ED (Rec: 04/27/23 08:15 ED [id number]) Out-Patient Physical Therapy Visit Information Visit Information Visit Type Aquatic Treatment Note Visit Note 11/10 Visit Start Time 07:25 Visit Stop Time 08:10 Total Visit Minutes 45 Visit Number 2 Number of RETAIL LOSS PREVENTION SPECIALIST Visits 0 PT-OP-B Current Condition Start: 04/24/23 10:51 Freq: Status: Active Protocol: Document 04/25/23 07:15 ED (Rec: 04/25/23 08:31 ED [id number]) Current Condition History of Current Condition Onset Date 01/25/23 Current Complaints R hip pain History of Current Condition Pt had R ISAÍAS (anterior) on . She notes that she has anterior leg pain and sometimes lateral. The pain is mostly proximal but sometimes will go all the way down to her knee. Pt notes that she is unable to descend stairs w/ step through pattern d/t weakness and fear. Pt notes she is apprehensive and fearful of hurting herself d/t the pain. She is seeing a chiropractor 3x/week right now but they have not been treating her hip per patient. 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 Notes that she is sore in her muscles from it. Is wondering how to roll her IT band. PT-OP-E Functional Tests Start: 04/24/23 10:51 Freq: Status: Active Protocol: Document 04/25/23 07:15 ED (Rec: 04/25/23 08:31 ED [id number]) Functional Tests 30 Second Sit to Stand Test Score 9 Comments pain in anterior hip during concentric portion PT-OP-Q Treatments Start: 04/24/23 10:51 Freq: Status: Active Protocol: Document 04/27/23 07:28 ED (Rec: 04/27/23 08:15 ED [id number]) Therapeutic Exercises Supine Exercises bridge Supine Exercise Name bridge Reps/Minutes 3x10 Sidelying Exercises butt busters Sidelying Exercise Name clamshell, reverse clamshell, hip abduction, hip flexion Reps/Minutes 1x10 Sitting Exercises LAQ Sitting Exercise Name LAQ Resistance 10# Reps/Minutes 3x10 quad stretch Sitting Exercise Name sitting quad stretch Side right Reps/Minutes x30-60'' Therapeutic Activity Therapeutic Activity TM Name TM walk Reps/Minutes 8' Comments 2.5 mph sit<>stands Name STS Reps/Minutes 3x10 PT-OP-T Assessment and Plan Start: 04/24/23 10:51 Freq: Status: Active Protocol: Document 04/27/23 07:28 ED (Rec: 04/27/23 08:15 ED [id number]) Physical Therapy Assessment Assessment Summary Assessment PT had patient perform HEP for review which she was able to do c/ minimal cuing required. She performed clamshells and s /l hip abduction which was very challenging for her. Demonstrated to patient how to use tennis ball for pressure relief alone lateral thigh; patient had exquisite tenderness on R thigh vs L. Physical Therapy Plan Next Visit Focus/Plan Next Note Type Treatment Note Next Visit Plan TM, review HEP (sit<>stands, bridge, quad stretch), LAQ, butt busters, step ups
--- NOTE | 2023-05-02 16:00 | PT.OTN ---
Current Diagnoses Pain in right hip (05/02/23) Trochanteric bursitis, right hip (05/02/23) Presence of right artificial hip joint (05/02/23) Physical Therapy Treatment Note PT-OP-A Visit Information Start: 04/24/23 10:51 Freq: Status: Active Protocol: Document 05/02/23 15:55 ED (Rec: 05/02/23 15:59 ED [id number]) Out-Patient Physical Therapy Visit Information Visit Information Visit Type Treatment Note Visit Note 12/08 Visit Start Time 15:15 Visit Stop Time 15:55 Total Visit Minutes 40 Visit Number 3 PT-OP-B Current Condition Start: 04/24/23 10:51 Freq: Status: Active Protocol: Document 04/25/23 07:15 ED (Rec: 04/25/23 08:31 ED [id number]) Current Condition History of Current Condition Onset Date 01/25/23 Current Complaints R hip pain History of Current Condition Pt had R ISAÍAS (anterior) on . She notes that she has anterior leg pain and sometimes lateral. The pain is mostly proximal but sometimes will go all the way down to her knee. Pt notes that she is unable to descend stairs w/ step through pattern d/t weakness and fear. Pt notes she is apprehensive and fearful of hurting herself d/t the pain. She is seeing a chiropractor 3x/week right now but they have not been treating her hip per patient. 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 Continues to be working c/ a chiropractor 2- 3x/week. PT-OP-E Functional Tests Start: 04/24/23 10:51 Freq: Status: Active Protocol: Document 04/25/23 07:15 ED (Rec: 04/25/23 08:31 ED [id number]) Functional Tests 30 Second Sit to Stand Test Score 9 Comments pain in anterior hip during concentric portion PT-OP-Q Treatments Start: 04/24/23 10:51 Freq: Status: Active Protocol: Document 05/02/23 15:55 ED (Rec: 05/02/23 15:59 ED [id number]) Cardio Equipment Treadmill Duration (Minutes) 8 Speed 2.0 Incline 1% Therapeutic Exercises Supine Exercises bridge Supine Exercise Name bridge Reps/Minutes 3x10 Sidelying Exercises butt busters Sidelying Exercise Name clamshell, reverse clamshell, hip abduction, hip flexion Reps/Minutes 1x10 Sitting Exercises LAQ Sitting Exercise Name LAQ Resistance 10# Reps/Minutes 3x10 Comments bilateral concentric & unilateral eccentric Standing Exercises calf stretch Reps/Minutes 2x60'' B stance RDL Resistance 10# Reps/Minutes 2x10 Comments to milk crate PT-OP-T Assessment and Plan Start: 04/24/23 10:51 Freq: Status: Active Protocol: Document 05/02/23 15:55 ED (Rec: 05/02/23 15:59 ED [id number]) Physical Therapy Assessment Assessment Summary Assessment PT tolerating treatment very well currently. She denied any pain or discomfort during exercises which have slowly been progressed intensity
--- NOTE | 2023-05-09 07:42 | PT-OP ANOTE ---
PT called patient and left VM regarding missed visit, 05/09 @ 7:30 am, and informed patient of next scheduled visit.
--- NOTE | 2023-05-15 07:47 | PT-OP ANOTE ---
left VM for patient regarding no show visit today, 05/15. Reminded patient of her next 3 scheduled appointments. Recommending cancelling appointments if she believes she is unable to make it.
--- NOTE | 2023-05-24 08:49 | PT-OP ANOTE ---
PT left voicemail for patient as she has not been seen since early May; she has cancelled or no showed for all appointments after her most recent one. PT stated that she can be discharged if she does not schedule any further appointments.
--- NOTE | 2023-05-31 07:21 | PT.OPDS ---
Current Diagnoses Pain in right hip (05/02/23) Trochanteric bursitis, right hip (05/02/23) Presence of right artificial hip joint (05/02/23) Visit Care Team Role Provider Type Tiffany Gallagher DO Family Provider Physician Primary Care Provider Specialty: Family Practice Address: [address] [place] [address], [address], [place], [address] Email: [email or web address] Oziel Gonzalez DO Attending Provider Non-Staff Referring Provider Specialty: Orthopedics Address: [facility], [place], [address] Email: Visit Number Visit Number 3 Discharge Summary PT-OP-B Current Condition Start: 04/24/23 10:51 Freq: Status: Active Protocol: Document 04/25/23 07:15 ED (Rec: 04/25/23 08:31 ED [id number]) Current Condition History of Current Condition Onset Date 01/25/23 Current Complaints R hip pain History of Current Condition Pt had R ISAÍAS (anterior) on . She notes that she has anterior leg pain and sometimes lateral. The pain is mostly proximal but sometimes will go all the way down to her knee. Pt notes that she is unable to descend stairs w/ step through pattern d/t weakness and fear. Pt notes she is apprehensive and fearful of hurting herself d/t the pain. She is seeing a chiropractor 3x/week right now but they have not been treating her hip per patient. 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 Continues to be working c/ a chiropractor 2- 3x/week. PT-OP-E Functional Tests Start: 04/24/23 10:51 Freq: Status: Active Protocol: Document 04/25/23 07:15 ED (Rec: 04/25/23 08:31 ED [id number]) Functional Tests 30 Second Sit to Stand Test Score 9 Comments pain in anterior hip during concentric portion PT-OP-T Assessment and Plan Start: 04/24/23 10:51 Freq: Status: Active Protocol: Document 05/31/23 07:20 ED (Rec: 05/31/23 07:21 ED [id number]) Physical Therapy Assessment Goals Three Impairment stairs Short Term Goal (STG) Pt will be able to perform UE supported [place] step ups w/ o R hip pain. STG Duration 3 weeks Detention Goal (LTG) Pt will be able to negotiate steps w/ step through gait pattern and no UE support. LTG Duration 6 weeks. 2 Impairment HEP Short Term Goal (STG) Pt will report performing HEP >3 days/weeks for 2 weeks. STG Duration 2 weeks Detention Goal (LTG) Pt will report performing HEP >3 days/week for 5 weeks. LTG Duration 5 weeks One Impairment Pain Short Term Goal (STG) Patient will report pain <4/10 during repeated sit<>stands STG Duration 3 weeks Development Advisor Goal (LTG) Pt will report no pain in R hip during repeated sit<> stands. LTG Duration 3 weeks Assessment Summary Assessment Pt will be discharged from physical therapy services at this time. Pt was last seen on May 02, 2023. She has since either cancelled or no-showed her appointments. PT has left several VMs for patient in effort to discuss Plan of Care .
== END 2023-06-05 15:06 | disposition home or self-care (01) ==
LOC: PHYS 15:15
PROVIDERS: Family Provider Family Medicine; PCP Family Medicine; Referring Provider Orthopaedic Surgery; Visit Provider Orthopaedic Surgery
DX: Z96.641 Presence of right artificial hip joint (principal); M70.61 Trochanteric bursitis, right hip; M25.551 Pain in right hip
CPT/HCPCS: 97110; 97162; 97530

== ENCOUNTER 2023-08-08 11:14 | Emergency (ER) | payer OTHER, SELFPAY ==
[2023-08-08 11:31] VITALS: BP 128/73; PULSE 70; RESP 16; TEMP 36.3; O2SAT 100; BMI 28.2
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
[2023-08-08 13:52] VITALS: BP 107/67; PULSE 60; RESP 16; O2SAT 99
== END 2023-08-08 14:05 | disposition home or self-care (01) ==
PROVIDERS: Emergency Provider Physician Assistant; Family Provider Family Medicine; PCP Family Medicine
DX: M25.551 Pain in right hip (principal); M54.50 Low back pain, unspecified; Y04.2XXA Assault by strike against or bumped into by another person, initial encounter; Y99.0 Civilian activity done for income or pay
CPT/HCPCS: 73502; 99283

== ENCOUNTER → 2023-08-22 | Outpatient (CLI) | payer OTHER, MEDICAID, SELFPAY | LOC: RAD 13:56 | PROVIDERS: Family Provider Family Medicine; PCP Student in an Organized Health Care Education/Training Program; Referring Provider Orthopaedic Surgery; Visit Provider Orthopaedic Surgery ==

== ENCOUNTER 2023-09-05 18:04 | Emergency (ER) | payer OTHER, MEDICAID, SELFPAY ==
[2023-09-05 18:17] VITALS: BP 170/88; PULSE 90; RESP 18; TEMP 36.6; O2SAT 100; BMI 28.2
--- NOTE | 2023-09-05 18:23 | DI.RAD.S_ITS ---
PROCEDURE: XR HIP W PEL IF DONE RT 2V INDICATIONS: fall, recent hip replacement TECHNIQUE: AP pelvis with lateral view(s) of the right hip(s). COMPARISON: [facility], , XR HIP W PEL IF DONE RT 2V, 08/08/2023, 11:43. FINDINGS: Bones: Right hip arthroplasty. No periprosthetic lucency to suggest loosening or infection. No fractures or dislocations. Pelvic ring appears intact. No suspicious bony lesions. Soft tissues: The visualized bowel gas pattern is normal. No suspicious soft tissue calcifications. IMPRESSION: No acute bony abnormality. Right hip arthroplasty is stable. Dictated by: Magan Terrell M.D. on 09/05/2023 at 19:53 Approved by: Magan Terrell M.D. on 09/05/2023 at 19:54
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
[2023-09-05 20:17] VITALS: BP 128/76; PULSE 77; RESP 14; O2SAT 97
== END 2023-09-05 20:18 | disposition home or self-care (01) ==
PROVIDERS: Emergency Provider Physician Assistant Medical; Family Provider Family Medicine; PCP Student in an Organized Health Care Education/Training Program
DX: S76.011A Strain of muscle, fascia and tendon of right hip, initial encounter (principal); W01.0XXA Fall on same level from slipping, tripping and stumbling without subsequent striking against object, initial encounter; Z96.641 Presence of right artificial hip joint
CPT/HCPCS: 73502; 99283

== ENCOUNTER → 2023-10-05 08:50 | Outpatient (CLI) | payer OTHER, MEDICAID, SELFPAY ==
--- NOTE | 2023-10-05 08:54 | DI.CT.S_ITS ---
PROCEDURE: CT HIP RIGHT WITHOUT CON INDICATIONS: PSOAS TENDONITIS OF RT SIDE/S/P HIP REPLACEMENT RT TECHNIQUE: Noncontrast 3 mm axial sections acquired through the bony pelvis. Additional 3 mm axial sections acquired through the symptomatic hip joint, with coronal and sagittal reformats. COMPARISON: [facility], CR, XR PELVIS WITH LATERAL HIP RIGHT, 10/03/2023, 7:43. FINDINGS: Image quality: Excellent. Bones: Postsurgical changes are seen from a right total hip arthroplasty. Hardware components are in stable positions without signs of loosening. No acute osseous fracture. The pelvic bones are intact. Mild degenerative changes are seen in the left hip. Degenerative changes are seen in the included lumbar spine. Soft tissues: No significant right hip effusion. No periarticular mass. No focal soft tissue hematoma is seen. The ligaments and tendons surrounding the right knee are not well evaluated with CT. The right iliopsoas muscle appears normal and symmetric. The musculature surrounding the pelvis is normal in bulk. No acute abnormality is seen in the included portions of the pelvis. IMPRESSION: Postsurgical changes from right hip arthroplasty. No hardware complication or acute osseous fracture is seen. Approved by: Rangel Quiroz M.D. on 10/05/2023 at 16:16
== END ==
LOC: CT 08:51
PROVIDERS: Family Provider Family Medicine; PCP Student in an Organized Health Care Education/Training Program; Referring Provider Orthopaedic Surgery; Visit Provider Orthopaedic Surgery
DX: M76.11 Psoas tendinitis, right hip (principal); Z96.641 Presence of right artificial hip joint
CPT/HCPCS: 73700

== ENCOUNTER → 2023-11-29 08:08 | Outpatient (CLI) | payer OTHER, MEDICAID, SELFPAY ==
--- NOTE | 2023-11-29 | DI.MG.S_ITS ---
BILATERAL DIGITAL SCREENING MAMMOGRAM 3D/2D WITH CAD: 11/29/2023 CLINICAL: Routine screening. Family history of breast cancer. Comparison is made to exams dated: 10/07/2022 mammogram, 05/31/2015 mammogram, 04/20/2011 mammogram, and 04/02/2009 mammogram - [facility]. There are scattered areas of fibroglandular density in both breasts (category b / 25%-50% glandular tissue). Current study was also evaluated with a Computer Aided Detection (CAD) system. No significant masses, calcifications, or other findings are seen in either breast. There has been no significant interval change. IMPRESSION: NEGATIVE There is no mammographic evidence of malignancy. A 1 year screening mammogram is recommended. Based on the Tyrer Cuzick model (a risk assessment model) the patient's lifetime risk is 7.1% and her 10 year risk is 2.1%. According to the ACR, ACS, and NCCN guidelines, an annual breast MRI exam along with mammogram is recommended if the patient's lifetime risk is 20% or greater. This exam was interpreted at Station ID: [id number]. NOTE: For mammograms, a report in lay terms will be sent to the patient. Approximately 15% of breast malignancies will not be visualized mammographically. In the management of a palpable breast mass, a negative mammogram must not discourage biopsy of a clinically suspicious lesion. Electronically Signed By: Magan hall/yue:11/29/2023 10:35:21 letter sent: Normal Exam ACR BI-RADS Category 1: Negative [id number]
== END ==
LOC: MAMMO 08:09
PROVIDERS: Family Provider Family Medicine; PCP Student in an Organized Health Care Education/Training Program; Referring Provider Student in an Organized Health Care Education/Training Program; Visit Provider Student in an Organized Health Care Education/Training Program
DX: Z12.31 Encounter for screening mammogram for malignant neoplasm of breast (principal); Z80.3 Family history of malignant neoplasm of breast; R92.323 Mammographic fibroglandular density, bilateral breasts
CPT/HCPCS: 77063; 77067

== ENCOUNTER 2024-01-17 15:11 | Emergency (ER) | payer OTHER, MEDICAID, SELFPAY ==
[2024-01-17] VITALS (8 sets, daily range): BP systolic 140–155; BP diastolic 82–86; PULSE 60–89; RESP 14–45; TEMP 36.9; O2SAT 95–100; BMI 29.0
--- NOTE | 2024-01-17 16:55 | DI.RAD.S_ITS ---
PROCEDURE: XR CHEST 1V INDICATIONS: High blood pressure TECHNIQUE: One view of the chest was acquired. COMPARISON: [facility], , XR CHEST 1V, 11/21/2020, 12:46. [facility], CR, XR CHEST 1V, 11/17/2020, 14:04. FINDINGS: Surgical changes and devices: None. Lungs and pleura: Lungs are clear. No pleural effusions or pneumothorax. Mediastinum: Mediastinal contours appear normal. Heart size is normal. Bones and chest wall: No suspicious bony lesions. Overlying soft tissues appear unremarkable. IMPRESSION: No acute cardiopulmonary abnormality is seen. Approved by: Rangel Quiroz M.D. on 01/17/2024 at 17:35
[2024-01-17 17:09] LABS: Add Manual Diff / Slide Review NO; Basophils Absolute Auto 100 /uL (0-100); Basophils Percent Auto 1.3 % (0-2); Eosinophils Absolute Auto 100 /uL (0-450); Eosinophils Percent Auto 1.6 % (2-4); Hematocrit 41.2 % (36-46); Hemoglobin 13.8 g/dL (12.0-16.0); Lymphocytes Absolute Auto 3000 /uL (1100-4500); Lymphocytes Percent Auto 32.6 % (25-40); Mean Corpuscular HGB Conc 33.5 % (30-36); Mean Corpuscular Hemoglobin 27.9 PG (26-34); Mean Corpuscular Volume 83.2 fL (80-100); Monocytes Absolute Auto 700 /uL (0-900); Monocytes Percent Auto 7.9 % (3-14); Neutrophils Absolute Auto 5100 /uL (1500-7000); Neutrophils Percent Auto 56.6 % (50-75); Platelet Count 283 X10^3/uL (150-400); Red Blood Cell Count 4.95 X10^6/uL (4.0-5.2); White Blood Cell Count 9.1 X10^3/uL (4.5-11.0)
[2024-01-17 17:24] LABS: Alanine Aminotransferase 29 IU/L (<35); Albumin Globulin Ratio 1.5 (1.0-2.8); Alkaline Phosphatase 90 U/L (38-126); Aspartate Aminotransferase 36 IU/L (14-36); BUN Creatinine Ratio 18.6 (6-22); Bilirubin Total 0.8 mg/dL (0.2-1.3); Blood Urea Nitrogen 11 mg/dL (7-17); Calcium 9.8 mg/dL (8.4-10.2); Carbon Dioxide 25 mmol/L (22-32); Chloride 107 mmol/L (98-107); Creatine Kinase 125 U/L (30-135); Estimated Glomerular Filt Rate > 60 mL/min (>60); Globulin 3.4 g/dL (1.7-4.1); Glucose 94 mg/dL (70-100); HEMOLYSIS 18 (0-50); Lipase 100 U/L (23-300); Potassium 3.7 mmol/L (3.4-5.1); Sodium 141 mmol/L (137-145); Total Protein 8.4 g/dL (6.3-8.2)
--- NOTE | 2024-01-17 17:27 | ED_ITS ---
HPI - General Adult General Chief complaint: Hypertension Stated complaint: sent by RN for high blood pressure uncontrolled Time Seen by Provider: 01/17/24 16:54 Source: patient Mode of arrival: Ambulatory History of Present Illness HPI narrative: Patient is a 53-year-old female who was sent to the emergency department by the nurse at her primary doctor's office for evaluation of high blood pressure. She states that she has had consistent right hip pain for the past years since she has had a hip replacement. She has seen her orthopedic doctor. She was doing physical therapy. Has had injections. Occasionally gets swelling on the outside of the hip. She states the Tylenol and tramadol is not helping her symptoms. She also states she has been having high blood pressure for the past couple days and also a headache. No chest pain. No shortness of breath. She was on propranolol but she states this is for her anxiety and of her blood pressure. She has been on? for ?blood pressure medicines in the past but her primary doctor's taken her off of all of them. She does not take her blood pressure unless she was feeling poorly. She was sent to the emergency department for concerns of potential infection in her hip. Related Data Home Medications Medication Instructions Recorded Confirmed meloxicam 15 mg tablet 15 mg PO Inflammation 08/27/23 08/27/23 Previous Rx's Medication Instructions Recorded meloxicam 7.5 mg tablet 7.5 mg PO DAILY #30 tabs 11/24/22 gabapentin 300 mg capsule See Rx Instructions .Route 03/06/23 .COMPLEX #90 caps gabapentin 100 mg capsule 100 mg PO TID PRN sharp nerve pain 03/14/23 #20 caps lidocaine 5 % topical patch 1 patch topical DAILY PRN pain #30 03/14/23 (Lidoderm) ea sertraline 100 mg tablet See Rx Instructions .Route 07/31/23 .COMPLEX #30 tabs cyclobenzaprine 5 mg tablet 5 mg PO TID PRN muscle spasm #30 08/27/23 tabs propranolol 10 mg tablet 10 mg PO BID PRN for anxiety #60 10/03/23 tabs hydroxyzine pamoate 25 mg capsule 25 mg PO 3XD PRN for anxiety #30 11/20/23 caps hydrocodone 5 mg-acetaminophen 325 1 tab PO Q4-6H PRN pain #10 tabs 01/17/24 mg tablet Allergies Allergy/AdvReac Type Severity Reaction Status Date / Time citalopram [CITALOPRAM] AdvReac Mild Migraines Verified 11/24/22 14:12 Review of Systems Review of Systems ROS Unobtainable: All systems reviewed & are unremarkable except as noted in HPI and below Patient History Medical History Essential hypertension Overweight (BMI 25.0-29.9) Generalized anxiety disorder Arm pain, right Neck pain Pancreatitis (2005) Chronic headaches Migraines CTS (carpal tunnel syndrome) (2000) Chronic back pain (1999) Scoliosis (1998) Depression (2004) Dysfunctional uterine bleeding Surgical History Anesthesia complication Status post endometrial ablation (08/2013) History of surgery on arm (06/2010) Status post carpal tunnel release (03/2008) Status post subacromial decompression (1999) Status post hysterectomy with oophorectomy (01/2014) Status post tubal ligation (12/2004) Status post laparoscopic cholecystectomy (2004) Family History Father Age: 89 Hypertension Cancer Sister Breast cancer Grandmother Age: 93 Breast cancer Mother Age: 82 Stroke Hypertension Hyperlipidemia Osteoporosis Grandmother Breast cancer H/O bilateral mastectomy Family/Other Breast cancer Social History marital status: household members: family and children occupational status: employed Smoking Status: Never smoker Smoking Status: Never smoker alcohol intake frequency: a few times a month Substance Use Type: marijuana Exam Initial Vital Signs Initial Vital Signs: Vital Signs Temperature 98.5 F 01/17/24 15:19 Pulse Rate 78 01/17/24 15:19 Respiratory Rate 16 01/17/24 15:19 Blood Pressure 155/86 H 01/17/24 15:19 Pulse Oximetry 100 01/17/24 15:19 Oxygen Delivery Method Room Air 01/17/24 15:19 Const General: cooperative, comfortable and No ill appearing [facility] Head: normal to inspection Resp Effort & Inspection: normal respiratory effort Cardio Rate: regular rate Skin Other: Surgical incision of the right hip appears well. Neuro General: patient alert, patient awake, patient oriented x3 and moves all extremities Cognition: normal cognition Speech: speech normal Extrem General: normal to inspection and capillary refill normal Other: There is potentially mild swelling lateral over the greater trochanter. Course Orders Ordered: ED Orders 01/17/24 16:55 XR chest 1V Stat EKG-12 Lead Stat 01/17/24 17:00 Complete Blood Count AUTO DIFF Stat Comprehensive Metabolic Panel Stat Lipase Stat NT-proBNP (BNP-Adult 18+) Stat Troponin & CK Cardiac Panel Stat Discontinued Medications Hydrocodone Bitart/Acetaminophen (Hydrocodone/Acet 5/325 Tablet) 1 tab PO NOW ONE Stop: 01/17/24 17:50 Vital Signs Vital signs: Vital Signs - 8 hr 01/17/24 15:19 Temperature 98.5 F Pulse Rate 78 Respiratory Rate 16 Blood Pressure 155/86 H Pulse Oximetry 100 Oxygen Delivery Method Room Air Medical Decision Making Lab Data Lab results reviewed: Yes I reviewed the patient's lab results. 01/17/24 17:00 01/17/24 17:00 Labs: Lab Results 01/17/24 Range/Units 17:00 WBC 9.1 (4.5-11.0) X10^3/uL RBC 4.95 (4.0-5.2) X10^6/uL Hgb 13.8 (12.0-16.0) g/dL Hct 41.2 (36-46) % MCV 83.2 (80-100) fL MCH 27.9 (26-34) PG MCHC 33.5 (30-36) % RDW 14.0 (11.6-14.8) % Plt Count 283 (150-400) X10^3/uL Neut % (Auto) 56.6 (50-75) % Lymph % (Auto) 32.6 (25-40) % [place] % (Auto) 7.9 (3-14) % Eos % (Auto) 1.6 L (2-4) % Baso % (Auto) 1.3 (0-2) % Neut # (Auto) 5100 (6238-7377) /uL Lymph # (Auto) 3000 (9542-9090) /uL [place] # (Auto) 700 (0-900) /uL Eos # (Auto) 100 (0-450) /uL Baso # (Auto) 100 (0-100) /uL Sodium 141 (137-145) mmol/L Potassium 3.7 (3.4-5.1) mmol/L Chloride 107 (98-107) mmol/L Carbon Dioxide 25 (22-32) mmol/L BUN 11 (7-17) mg/dL Creatinine 0.59 (0.52-1.04) mg/dL Estimated GFR > 60 (>60) mL/min BUN/Creatinine Ratio 18.6 (6-22) Glucose 94 (70-100) mg/dL Calcium 9.8 (8.4-10.2) mg/dL Total Bilirubin 0.8 (0.2-1.3) mg/dL AST 36 (14-36) IU/L ALT 29 (<35) IU/L Alkaline Phosphatase 90 (38-126) U/L Total Creatine Kinase 125 (30-135) U/L Troponin I < 0.012 (0.01-0.034) ng/mL NT-Pro-B Natriuret Pep 234 H (<125) pg/mL Total Protein 8.4 H (6.3-8.2) g/dL Albumin 5.0 (3.5-5.0) g/dL Globulin 3.4 (1.7-4.1) g/dL Albumin/Globulin Ratio 1.5 (1.0-2.8) Lipase 100 (23-300) U/L Urine Dip Bedside Urine Glucose Negative Bedside Urine Bilirubin - Negative Bedside Urine Ketone - Negative Urine Specific Marceline 1.015 Bedside Urine Occult Blood - Negative Bedside Urine pH 6.0 Bedside Urine Protein - Negative Bedside Urine Urobilinogen - Negative Bedside Urine Nitrite - Negative Bedside Urine Leukocytes - Negative Esterase Point of care testing: Urine Dip Bedside Urine Glucose Negative Bedside Urine Bilirubin - Negative Bedside Urine Ketone - Negative Urine Specific Marc[place] 1.015 Bedside Urine Occult Blood - Negative Bedside Urine pH 6.0 Bedside Urine Protein - Negative Bedside Urine Urobilinogen - Negative Bedside Urine Nitrite - Negative Bedside Urine Leukocytes - Negative Esterase Imaging Data Chest x-ray: Radiologist's Impression: PROCEDURE: XR CHEST 1V INDICATIONS: High blood pressure TECHNIQUE: One view of the chest was acquired. COMPARISON: [facility], , XR CHEST 1V, 11/21/2020, 12:46. [facility], , XR CHEST 1V, 11/17/2020, 14:04. FINDINGS: Surgical changes and devices: None. Lungs and pleura: Lungs are clear. No pleural effusions or pneumothorax. Mediastinum: Mediastinal contours appear normal. Heart size is normal. Bones and chest wall: No suspicious bony lesions. Overlying soft tissues appear unremarkable. IMPRESSION: No acute cardiopulmonary abnormality is seen. ECG Data Attestation: I personally reviewed and interpreted this ECG as follows: Interpretation: Sinus rhythm Ventricular rate is 70 Normal axis Normal QRS Normal QTC No ST T wave changes MDM Narrative Medical decision making narrative: Elevation in the blood pressure today is not causing ACS, CHF, TIA, CVA. She was alert and oriented x3. I have very low suspicion that there was an infection in her right hip. No further workup of her right hip required here in the emergency department. We discussed blood pressure. Discussed how she should be taking her blood pressure at home on a regular basis and recording the results and then talking with her primary doctor as to whether or not she needs any medications. We discussed how if she only takes her blood pressure when she was feeling poorly this may artificially increase the results. There was no indication for any emergent reduction in her blood pressure. Patient is safe for discharge home. Was sent home with pain medication for breakthrough pain. She was given return precautions and follow-up instructions. She expressed understanding and agreement. Discharge Plan Departure Patient Disposition: Home Clinical Impression: Hip pain, Hypertension Instructions: DI for High Blood Pressure Activity Restrictions/Additional Instructions: I do recommend that you continue to take all of your medications as directed. Keep all of your scheduled medical appointments. Your going to need follow-up with the orthopedic surgeon regarding your right hip pain. The pain medication that you were prescribed today should be for breakthrough pain. I also recommend that you take your blood pressure at home on a regular basis and record the results so that you can follow-up with your primary doctor and discuss potentially starting any medications. Prescriptions: New hydrocodone-acetaminophen 5-325 mg tablet 1 tab PO Q4-6H PRN (Reason: pain) Qty: 10 0RF No Action meloxicam 15 mg tablet 15 mg PO cyclobenzaprine 5 mg tablet 5 mg PO TID PRN (Reason: muscle spasm) Qty: 30 0RF meloxicam 7.5 mg tablet 7.5 mg PO DAILY Qty: 30 0RF gabapentin 300 mg capsule See Rx Instructions .ROUTE .COMPLEX Qty: 90 1RF Dose Instruction: TAKE THREE CAPSULES BY MOUTH NIGHTLY AT BEDTIME as needed for pain Rx Instructions: TAKE THREE CAPSULES BY MOUTH NIGHTLY AT BEDTIME as needed for pain sertraline 100 mg tablet See Rx Instructions .ROUTE .COMPLEX Qty: 30 11RF Dose Instruction: TAKE ONE TABLET BY MOUTH ONE TIME DAILY Rx Instructions: TAKE ONE TABLET BY MOUTH ONE TIME DAILY propranolol 10 mg tablet 10 mg PO BID PRN (Reason: for anxiety) Qty: 60 1RF hydroxyzine pamoate 25 mg capsule 25 mg PO 3XD PRN (Reason: for anxiety) Qty: 30 0RF lidocaine [Lidoderm] 5 % adhesive patch,medicated 1 patch topical DAILY PRN (Reason: pain) Qty: 30 0RF Rx Instructions: leave on most painful area for up to 12 hrs gabapentin 100 mg capsule 100 mg PO TID PRN (Reason: sharp nerve pain) Qty: 20 0RF Referrals: Vernell Blanco MD [Primary Care Provider] - Stand Alone Forms: Patient Portal/API
[2024-01-17 17:35] LABS: NT-proBNP (BNP-Adult 18+) 234 pg/mL (<125); Troponin I < 0.012 ng/mL (0.01-0.034)
--- NOTE | 2024-01-17 17:36 | PC.NURSE ---
patient came into the ER with complaints of CHILLS, right hip pain, headache pain. She had a right ISAÍAS last december and is seen by her ortho MD every month and has had a neg CT on it. She states that she feels something is wrong. The right hip area shows a well healed scar from and anterior hip replacement. There is not visible redness, swelling, drainage, or non intact skin. She states the posterior hip is swollen. She was given a shot of cortisol in it that helped for 2 weeks then the pain came back. She had a fall on that hip in August and had the CT in Oct. She is also concerned about her high BP. When she awoke this morning she went to use the RR and her head started to pound. She took her pressure and it was 157/98. She called and talked to a triage nurse that instructed her to come to the ER if she couldnt make it to her PCP. She complains of a headache of 8/10 which she took 1g tylenol for at 1100. She also complains of 8/10 right hip pain.
[2024-01-17] MEDS: HYDROCODONE/ACET 5/325 TABLET 1 TAB PO (18:02)
== END 2024-01-17 18:31 | disposition home or self-care (01) ==
PROVIDERS: Emergency Provider Emergency Medicine; Family Provider Family Medicine; PCP Student in an Organized Health Care Education/Training Program
DX: I10 Essential (primary) hypertension (principal); M25.551 Pain in right hip; Z96.649 Presence of unspecified artificial hip joint
CPT/HCPCS: 36415; 71045; 80053; 81003; 82550; 83690; 83880; 84484; 85025; 93005; 99284

== ENCOUNTER 2024-01-29 18:17 | Emergency (ER) | payer OTHER, MEDICAID, SELFPAY ==
[2024-01-29 18:30] VITALS: BP 154/87; PULSE 78; RESP 16; TEMP 36.6; O2SAT 100; BMI 29.0
--- NOTE | 2024-01-29 18:55 | DI.RAD.S_ITS ---
PROCEDURE: XR CHEST 1V INDICATIONS: HTN TECHNIQUE: One view of the chest was acquired. COMPARISON: [facility], CR, XR CHEST 1V, 01/17/2024, 17:17. FINDINGS: Surgical changes and devices: None. Lungs and pleura: Lungs are clear. No pleural effusions or pneumothorax. Mediastinum: Mediastinal contours appear normal. Heart size is normal. Bones and chest wall: No suspicious bony lesions. Overlying soft tissues appear unremarkable. IMPRESSION: No acute cardiopulmonary abnormality is seen. Dictated by: Zahira Yeung M.D. on 01/29/2024 at 20:09 Approved by: Zahira Yeung M.D. on 01/29/2024 at 20:09
[2024-01-29 20:02] VITALS: PULSE 69; RESP 30; O2SAT 97
[2024-01-29 20:04] LABS: Add Manual Diff / Slide Review NO; Basophils Absolute Auto 100 /uL (0-100); Basophils Percent Auto 0.7 % (0-2); Eosinophils Absolute Auto 200 /uL (0-450); Eosinophils Percent Auto 1.9 % (2-4); Hematocrit 37.8 % (36-46); Hemoglobin 12.6 g/dL (12.0-16.0); Lymphocytes Absolute Auto 2200 /uL (1100-4500); Lymphocytes Percent Auto 23.8 % (25-40); Mean Corpuscular HGB Conc 33.3 % (30-36); Mean Corpuscular Hemoglobin 27.5 PG (26-34); Mean Corpuscular Volume 82.7 fL (80-100); Monocytes Absolute Auto 900 /uL (0-900); Monocytes Percent Auto 9.6 % (3-14); Neutrophils Absolute Auto 5900 /uL (1500-7000); Platelet Count 246 X10^3/uL (150-400); Red Blood Cell Count 4.57 X10^6/uL (4.0-5.2); Red Cell Distribution Width 14.1 % (11.6-14.8); White Blood Cell Count 9.3 X10^3/uL (4.5-11.0)
[2024-01-29 20:07] VITALS: BP 133/76; PULSE 73; RESP 28; O2SAT 97
[2024-01-29 20:15] LABS: BUN Creatinine Ratio 21.7 (6-22); Blood Urea Nitrogen 15 mg/dL (7-17); Calcium 9.1 mg/dL (8.4-10.2); Carbon Dioxide 29 mmol/L (22-32); Chloride 103 mmol/L (98-107); Creatine Kinase 107 U/L (30-135); Estimated Glomerular Filt Rate > 60 mL/min (>60); Glucose 98 mg/dL (70-100); HEMOLYSIS < 15 (0-50); Potassium 3.8 mmol/L (3.4-5.1); Sodium 139 mmol/L (137-145)
[2024-01-29 20:27] LABS: Troponin I < 0.012 ng/mL (0.01-0.034)
[2024-01-29 20:30] VITALS: BP 143/82; PULSE 67; RESP 18; O2SAT 97
--- NOTE | 2024-01-29 20:40 | ED.GENADULT ---
HPI - General Adult General Chief complaint: Hypertension Stated complaint: sent by MD for HBP Time Seen by Provider: 01/29/24 18:54 Source: patient Mode of arrival: Ambulatory History of Present Illness HPI narrative: Patient is a 53-year-old female. Has a history of blood pressure at 1 point was 4 different medications for this. She was able to wean off these medications over the course of several years in his not been on any medicines for some time now. She states she occasionally gets headaches which is when she takes her blood pressure in his normally elevated. She states that she was currently having headache. This has been off and on for the past 2 weeks. She denies chest pain or shortness of breath. No lower extremity swelling. She has been having some issues with her right hip after having a hip replacement about 1 year ago. She was being followed by Orthopedics for this. Recently had a steroid injection in the area and also a aspiration. Related Data Home Medications Medication Instructions Recorded Confirmed meloxicam 15 mg tablet 15 mg PO Inflammation 08/27/23 08/27/23 Previous Rx's Medication Instructions Recorded meloxicam 7.5 mg tablet 7.5 mg PO DAILY #30 tabs 11/24/22 gabapentin 300 mg capsule See Rx Instructions .Route 03/06/23 .COMPLEX #90 caps gabapentin 100 mg capsule 100 mg PO TID PRN sharp nerve pain 03/14/23 #20 caps lidocaine 5 % topical patch 1 patch topical DAILY PRN pain #30 03/14/23 (Lidoderm) ea sertraline 100 mg tablet See Rx Instructions .Route 07/31/23 .COMPLEX #30 tabs cyclobenzaprine 5 mg tablet 5 mg PO TID PRN muscle spasm #30 08/27/23 tabs propranolol 10 mg tablet 10 mg PO BID PRN for anxiety #60 10/03/23 tabs hydroxyzine pamoate 25 mg capsule 25 mg PO 3XD PRN for anxiety #30 11/20/23 caps hydrocodone 5 mg-acetaminophen 325 1 tab PO Q4-6H PRN pain #10 tabs 01/17/24 mg tablet lisinopril 10 mg tablet 10 mg PO DAILY #30 tabs 01/29/24 Allergies Allergy/AdvReac Type Severity Reaction Status Date / Time citalopram [CITALOPRAM] AdvReac Mild Migraines Verified 11/24/22 14:12 Review of Systems Review of Systems ROS Unobtainable: All systems reviewed & are unremarkable except as noted in HPI and below Patient History Medical History Essential hypertension Overweight (BMI 25.0-29.9) Generalized anxiety disorder Arm pain, right Neck pain Pancreatitis (2005) Chronic headaches Migraines CTS (carpal tunnel syndrome) (2000) Chronic back pain (1999) Scoliosis (1998) Depression (2004) Dysfunctional uterine bleeding Surgical History Anesthesia complication Status post endometrial ablation (08/2013) History of surgery on arm (06/2010) Status post carpal tunnel release (03/2008) Status post subacromial decompression (1999) Status post hysterectomy with oophorectomy (01/2014) Status post tubal ligation (12/2004) Status post laparoscopic cholecystectomy (2004) Family History Father Age: 89 Hypertension Cancer Sister Breast cancer Grandmother Age: 93 Breast cancer Mother Age: 82 Stroke Hypertension Hyperlipidemia Osteoporosis Grandmother Breast cancer H/O bilateral mastectomy Family/Other Breast cancer Social History marital status: household members: family and children occupational status: employed Smoking Status: Never smoker Smoking Status: Never smoker alcohol intake frequency: a few times a month Substance Use Type: marijuana Exam Initial Vital Signs Initial Vital Signs: Vital Signs Temperature 97.9 F 01/29/24 18:30 Pulse Rate 78 01/29/24 18:30 Respiratory Rate 16 01/29/24 18:30 Blood Pressure 154/87 H 01/29/24 18:30 Pulse Oximetry 100 01/29/24 18:30 Oxygen Delivery Method Room Air 01/29/24 18:30 Const General: cooperative, comfortable and No ill appearing HENMT Head: normal to inspection and normocephalic Resp Effort & Inspection: normal respiratory effort Auscultation: clear to auscultation bilaterally Cardio Rate: regular rate Rhythm: regular rhythm GI Inspection: normal to inspection and non-distended Skin General: no rashes or lesions noted Extrem General: No edema Course Orders Ordered: ED Orders 01/29/24 18:55 XR chest 1V Stat EKG-12 Lead Stat 01/29/24 19:57 Basic Metabolic Panel Stat Complete Blood Count AUTO DIFF Stat Troponin & CK Cardiac Panel Stat Discontinued Medications Lisinopril (Lisinopril 10 Mg Tablet) 10 mg PO NOW ONE Stop: 01/29/24 20:41 Last Admin: 01/29/24 20:54 Dose: 10 mg Documented By: LANE Vital Signs Vital signs: Vital Signs - 8 hr 01/29/24 18:30 01/29/24 20:02 01/29/24 20:07 Temperature 97.9 F Pulse Rate 78 69 73 Respiratory Rate 16 30 H 28 H Blood Pressure 154/87 H Pulse Oximetry 100 97 97 Oxygen Delivery Method Room Air 01/29/24 20:07 01/29/24 20:30 01/29/24 20:30 Temperature Pulse Rate 67 Respiratory Rate 18 Blood Pressure 133/76 143/82 H Pulse Oximetry 97 Oxygen Delivery Method 01/29/24 20:54 01/29/24 20:55 01/29/24 20:55 Temperature Pulse Rate 72 71 Respiratory Rate 24 Blood Pressure 132/77 132/77 Pulse Oximetry 96 Oxygen Delivery Method Room Air Medical Decision Making Lab Data Lab results reviewed: Yes I reviewed the patient's lab results. 01/29/24 19:57 01/29/24 19:57 Labs: Lab Results 01/29/24 Range/Units 19:57 WBC 9.3 (4.5-11.0) X10^3/uL RBC 4.57 (4.0-5.2) X10^6/uL Hgb 12.6 (12.0-16.0) g/dL Hct 37.8 (36-46) % MCV 82.7 (80-100) fL MCH 27.5 (26-34) PG MCHC 33.3 (30-36) % RDW 14.1 (11.6-14.8) % Plt Count 246 (150-400) X10^3/uL Neut % (Auto) 64.0 (50-75) % Lymph % (Auto) 23.8 L (25-40) % Burke % (Auto) 9.6 (3-14) % Eos % (Auto) 1.9 L (2-4) % Baso % (Auto) 0.7 (0-2) % Neut # (Auto) 5900 (5246-8096) /uL Lymph # (Auto) 2200 (7160-7243) /uL Burke # (Auto) 900 (0-900) /uL Eos # (Auto) 200 (0-450) /uL Baso # (Auto) 100 (0-100) /uL Sodium 139 (137-145) mmol/L Potassium 3.8 (3.4-5.1) mmol/L Chloride 103 (98-107) mmol/L Carbon Dioxide 29 (22-32) mmol/L BUN 15 (7-17) mg/dL Creatinine 0.69 (0.52-1.04) mg/dL Estimated GFR > 60 (>60) mL/min BUN/Creatinine Ratio 21.7 (6-22) Glucose 98 (70-100) mg/dL Calcium 9.1 (8.4-10.2) mg/dL Total Creatine Kinase 107 (30-135) U/L Troponin I < 0.012 (0.01-0.034) ng/mL Imaging Data Chest x-ray: Radiologist's Impression: PROCEDURE: XR CHEST 1V INDICATIONS: HTN TECHNIQUE: One view of the chest was acquired. COMPARISON: [facility], , XR CHEST 1V, 01/17/2024, 17:17. FINDINGS: Surgical changes and devices: None. Lungs and pleura: Lungs are clear. No pleural effusions or pneumothorax. Mediastinum: Mediastinal contours appear normal. Heart size is normal. Bones and chest wall: No suspicious bony lesions. Overlying soft tissues appear unremarkable. IMPRESSION: No acute cardiopulmonary abnormality is seen. ECG Data Attestation: I personally reviewed and interpreted this ECG as follows: Interpretation: Sinus rhythm Ventricular rate is 72 Normal axis Normal QRS No ST T wave changes MDM Narrative Medical decision making narrative: Patient is hypertensive but does not have any end-organ dysfunction because of this. Not having ACS, heart failure, kidney failure, intracranial hemorrhage. I did discuss the importance of her taking her blood pressure at home even when she has not having symptoms. She has been doing this over the past couple days. She has been having blood pressures that ranged anywhere from the 120s to 170s systolic. No indication for admission to the hospital. We will start her on a low-dose lisinopril. She has an appointment with her primary doctor later this week. Recommended that she continue to take her blood pressure at home. She can discuss with her primary doctor later this week any additional medications or medicine adjustments as needed. She was given return precautions. Discharge Plan Departure Patient Disposition: Home Clinical Impression: Hypertension Instructions: DI for High Blood Pressure Activity Restrictions/Additional Instructions: Keep your scheduled appointment with your primary doctor on Sunday. Continue to take your blood pressure at home on a regular basis. Return to the emergency department for new symptoms. Prescriptions: New lisinopril 10 mg tablet 10 mg PO DAILY Qty: 30 0RF No Action meloxicam 15 mg tablet 15 mg PO cyclobenzaprine 5 mg tablet 5 mg PO TID PRN (Reason: muscle spasm) Qty: 30 0RF meloxicam 7.5 mg tablet 7.5 mg PO DAILY Qty: 30 0RF gabapentin 300 mg capsule See Rx Instructions .ROUTE .COMPLEX Qty: 90 1RF Dose Instruction: TAKE THREE CAPSULES BY MOUTH NIGHTLY AT BEDTIME as needed for pain Rx Instructions: TAKE THREE CAPSULES BY MOUTH NIGHTLY AT BEDTIME as needed for pain sertraline 100 mg tablet See Rx Instructions .ROUTE .COMPLEX Qty: 30 11RF Dose Instruction: TAKE ONE TABLET BY MOUTH ONE TIME DAILY Rx Instructions: TAKE ONE TABLET BY MOUTH ONE TIME DAILY propranolol 10 mg tablet 10 mg PO BID PRN (Reason: for anxiety) Qty: 60 1RF hydroxyzine pamoate 25 mg capsule 25 mg PO 3XD PRN (Reason: for anxiety) Qty: 30 0RF lidocaine [Lidoderm] 5 % adhesive patch,medicated 1 patch topical DAILY PRN (Reason: pain) Qty: 30 0RF Rx Instructions: leave on most painful area for up to 12 hrs gabapentin 100 mg capsule 100 mg PO TID PRN (Reason: sharp nerve pain) Qty: 20 0RF hydrocodone-acetaminophen 5-325 mg tablet 1 tab PO Q4-6H PRN (Reason: pain) Qty: 10 0RF Referrals: Vernell Blanco MD [Primary Care Provider] - Stand Alone Forms: Patient Portal/API
[2024-01-29 20:54] VITALS: BP 132/77; PULSE 72
[2024-01-29] MEDS: lisinopriL 10 MG TABLET PO (20:54)
[2024-01-29 20:55] VITALS: BP 132/77; PULSE 71; RESP 24; O2SAT 96
== END 2024-01-29 21:06 | disposition home or self-care (01) ==
PROVIDERS: Emergency Provider Emergency Medicine; Family Provider Family Medicine; PCP Student in an Organized Health Care Education/Training Program
DX: I10 Essential (primary) hypertension (principal)
CPT/HCPCS: 71045; 80048; 82550; 84484; 85025; 93005; 99283; 99284

== ENCOUNTER → 2024-05-02 09:41 | Outpatient (CLI) | payer OTHER, MEDICAID, SELFPAY ==
[2024-05-04 09:07] LABS: Arsenic < 1 ug/L (0-9); Cadmium, Blood <0.5 ug/L (0.0-1.2); Lead, Blood < 1.0 ug/dL (0.0-3.4); Mercury, Blood < 1.0 ug/L (0.0-14.9)
== END ==
PROVIDERS: PCP Student in an Organized Health Care Education/Training Program; Referring Provider Student in an Organized Health Care Education/Training Program; Visit Provider Student in an Organized Health Care Education/Training Program
DX: Z77.098 Contact with and (suspected) exposure to other hazardous, chiefly nonmedicinal, chemicals (principal); Z77.018 Contact with and (suspected) exposure to other hazardous metals
CPT/HCPCS: 36415; 82175; 82300; 83655; 83825

== ENCOUNTER → 2024-05-08 12:46 | Outpatient (CLI) | payer OTHER, MEDICAID, SELFPAY ==
--- NOTE | 2024-05-08 12:48 | DI.RAD.S_ITS ---
PROCEDURE: XR HIP W PEL IF DONE LT 2V INDICATIONS: Left hip pain TECHNIQUE: AP pelvis with lateral view(s) of the left hip(s). COMPARISON: [facility], CR, XR HIP W PEL IF DONE RT 2V, 09/05/2023, 18:47. [facility], CR, XR HIP W PEL IF DONE RT 2V, 08/08/2023, 11:43. FINDINGS: Bones: No fractures or dislocations. Mild degenerative changes of the left hip. Partially visualized right hip arthroplasty without evidence of complication. Pelvic ring appears intact. No suspicious bony lesions. Soft tissues: The visualized bowel gas pattern is normal. No suspicious soft tissue calcifications. IMPRESSION: 1. No acute osseous abnormalities. 2. Mild degenerative changes of the left hip. 3. Right hip arthroplasty is partially visualized without evidence of complication. Dictated by: Titi Rodriguez M.D. on 05/08/2024 at 18:35 Approved by: Titi Rodriguez M.D. on 05/08/2024 at 18:36
== END ==
PROVIDERS: PCP Student in an Organized Health Care Education/Training Program; Referring Provider Student in an Organized Health Care Education/Training Program; Visit Provider Student in an Organized Health Care Education/Training Program
DX: Z96.641 Presence of right artificial hip joint (principal); Z09 Encounter for follow-up examination after completed treatment for conditions other than malignant neoplasm
CPT/HCPCS: 73502

== ENCOUNTER → 2024-05-23 16:23 | Outpatient (CLI) | payer OTHER, MEDICAID, SELFPAY ==
--- NOTE | 2024-05-23 16:24 | DI.MRI.S_ITS ---
PROCEDURE: MR HIP RT WO CON INDICATIONS: Continued hip pain post total hip replacement TECHNIQUE: Noncontrast coronal T1 spin echo and STIR through the bony pelvis. Coronal and axial T2 fast spin echo with fat saturation, sagittal T1 spin echo, and oblique axial T2 fast spin echo with fat saturation through the hip. COMPARISON: [facility], CR, XR PELVIS WITH LATERAL HIP RIGHT, 03/05/2023, 15:09. FINDINGS: Image quality: Excellent. Bones and joints: Bilateral lower lumbar facet arthropathy . Marrow signal of the sacrum, bilateral iliac joints are unremarkable. Status post right total hip arthroplasty, in near anatomic alignment.. The left hip is well aligned. No acute fracture or dislocation of the left hip. No avascular necrosis of the left femoral head. Tendons and ligaments: The right iliopsoas, and adductor tendon are unremarkable. The right hamstring tendon is unremarkable. The right gluteal minimus and the right gluteus medius tendon are unremarkable. Soft tissues: The uterus is not visualized, likely surgically absent. IMPRESSION: Status post right total hip arthroplasty, in near anatomic alignment. Otherwise unremarkable MRI of the right hip. Dictated by: Elise Betancur M.D. on 05/26/2024 at 11:38 Approved by: Elise Betancur M.D. on 05/26/2024 at 11:47
== END ==
LOC: MRI 16:24
PROVIDERS: PCP Student in an Organized Health Care Education/Training Program; Referring Provider Student in an Organized Health Care Education/Training Program; Visit Provider Student in an Organized Health Care Education/Training Program
DX: M47.816 Spondylosis without myelopathy or radiculopathy, lumbar region (principal); Z96.649 Presence of unspecified artificial hip joint
CPT/HCPCS: 73721

== ENCOUNTER → 2024-06-26 15:30 | Outpatient (CLI) | payer OTHER, MEDICAID, SELFPAY ==
--- NOTE | 2024-06-26 15:31 | DI.RAD.S_ITS ---
PROCEDURE: XR LUMBAR SPINE MIN 4V INDICATIONS: BACK PAIN TECHNIQUE: 5 views of the lumbar spine were acquired, including bilateral oblique views. COMPARISON: [facility], , XR LUMBAR SPINE 2-3V, 05/03/2021, 15:31. FINDINGS: Bones: 5 nonrib-bearing vertebrae are present. Mild dextroconvex curvature of the lumbar spine. Mild grade 1 retrolisthesis at L1-2 and L2-3. No acute vertebral body compression fractures. No suspicious bony lesions. Mild generalized osteopenia. Multilevel disc space narrowing and degenerative endplate changes. Multilevel facet hypertrophy. Postsurgical changes from prior right hip arthroplasty. Soft tissues: Overlying bowel gas pattern is normal. No suspicious soft tissue calcifications. Right upper quadrant surgical clips. Oblique images: No pars defects. IMPRESSION: Moderate multilevel spondylosis and degenerative spondylolisthesis. Mild dextroconvex curvature. No acute osseous abnormality. Approved by: Rangel Quiroz M.D. on 06/26/2024 at 17:25
== END ==
PROVIDERS: PCP Student in an Organized Health Care Education/Training Program; Referring Provider Physical Medicine & Rehabilitation; Visit Provider Physical Medicine & Rehabilitation
DX: M47.816 Spondylosis without myelopathy or radiculopathy, lumbar region (principal); M47.817 Spondylosis without myelopathy or radiculopathy, lumbosacral region; M43.16 Spondylolisthesis, lumbar region; M41.9 Scoliosis, unspecified
CPT/HCPCS: 72110

== ENCOUNTER → 2024-07-24 08:42 | Outpatient (CLI) | payer OTHER, MEDICAID, SELFPAY | PROVIDERS: Family Provider Student in an Organized Health Care Education/Training Program; PCP Student in an Organized Health Care Education/Training Program; Referring Provider Physical Medicine & Rehabilitation; Visit Provider Physical Medicine & Rehabilitation | DX: Z96.649 Presence of unspecified artificial hip joint (principal) | CPT/HCPCS: 95886; 95911 ==

== ENCOUNTER → 2025-07-25 11:10 | Outpatient (CLI) | payer OTHER, MEDICAID, SELFPAY ==
--- NOTE | 2025-07-25 11:12 | DI.MG.S_ITS ---
MM screening mammo BI: 07/25/2025. BI-RADS: 1 CLINICAL: 55-year old female for bilateral screening mammogram. Tyrer-Cuzick lifetime risk of 24.0%. Current reported family history of breast cancer: paternal grandmother, sister, sister's daughter, sister's second daughter and paternal aunt. PRIOR EXAMS 11/29/2023, 10/07/2022. MAMMOGRAPHY TECHNIQUE: 2D and 3D (tomosynthesis) digital mammographic views obtained, with additional images as needed for full coverage. Current study was also evaluated with a Computer Aided Detection (CAD) system. DENSITY B. There are scattered areas of fibroglandular density. MAMMOGRAPHY FINDINGS Bilateral: No suspicious mass, asymmetry, microcalcification, or other abnormality seen. IMPRESSION: * No evidence of malignancy. RECOMMENDATIONS Bilateral * According to the Tyrer-Cuzick Risk Assessment Model, based on the information provided your patient has a greater than 20% lifetime risk for developing breast cancer. Consider supplemental screening with breast MRI and participation in a high risk screening program. * Annual screening mammography. OVERALL ASSESSMENT CATEGORY BI-RADS-1: Negative. The [employer] recommends annual screening mammography beginning at age 40 for women with average risk of breast cancer. ELECTRONICALLY SIGNED: Magan Terrell M.D. on 07/25/2025 at 01:53:05 PM PT Interpreting Station ID: [id number]
== END ==
LOC: MAMMO 11:11
PROVIDERS: Family Provider Student in an Organized Health Care Education/Training Program; PCP Student in an Organized Health Care Education/Training Program; Referring Provider Student in an Organized Health Care Education/Training Program; Visit Provider Student in an Organized Health Care Education/Training Program
DX: Z12.31 Encounter for screening mammogram for malignant neoplasm of breast (principal); Z80.3 Family history of malignant neoplasm of breast
CPT/HCPCS: 77063; 77067

== ENCOUNTER → 2025-08-04 07:18 | Outpatient (CLI) | payer OTHER, MEDICAID, SELFPAY ==
--- NOTE | 2025-08-04 07:19 | DI.MRI.S_ITS ---
MR breast BI wo/w con: 08/04/2025. BI-RADS: 2 CLINICAL: 55-year old female for bilateral diagnostic breast MRI. Current reported family history of breast cancer: paternal grandmother, sister, sister's daughter, sister's second daughter and paternal aunt. PRIOR EXAMS Mammogram(s): 07/25/2025. Two Other Exams on 11/29/2023, 10/07/2022. MRI TECHNIQUE Bilateral breast MRI was performed on a 1.5 Lornee magnet using a dedicated breast coil with mild compression. Axial T1 and T2 STIR sequences were obtained. Dynamic contrast enhanced VIBRANT fat-suppressed sequences were obtained. Delayed sagittal high resolution or sagittal reconstructed isotropic sequence was also obtained. Subtraction images and maximum intensity projection images were obtained. The study was evaluated using [employer] software. Gadavist was injected intravenously: mL. IV Contrast: 20 ml ProHance. FIBROGLANDULAR TISSUE Bilateral: A. Almost entirely fat. BACKGROUND PARENCHYMAL ENHANCEMENT Bilateral: Minimal symmetrical background parenchymal enhancement. BREAST FINDINGS Right: No suspicious mass, suspicious non-mass enhancement, or other concerning finding identified. Left No suspicious enhancing mass or non-masslike enhancement. Benign-appearing cyst or cysts and intramammary lymph node(s) noted. There is no suspicious finding with benign findings noted. No significant change since previous exam(s). CHEST FINDINGS No axillary or internal mammary chain adenopathy. No abnormality seen in the visible portions of the heart, lungs, chest wall, and liver. IMPRESSION: Right * No evidence of malignancy. Left * No evidence of malignancy with benign findings. RECOMMENDATIONS Bilateral * According to the Tyrer-Cuzick Risk Assessment Model, based on the information provided your patient has a greater than 20% lifetime risk for developing breast cancer. Consider supplemental screening with breast MRI and participation in a high risk screening program. * Annual screening mammography. OVERALL ASSESSMENT CATEGORY BI-RADS-2: Benign. ELECTRONICALLY SIGNED: Zahira Yeung M.D. on 08/05/2025 at 09:22:40 AM PT Interpreting Station ID: [id number]
== END ==
PROVIDERS: Family Provider Student in an Organized Health Care Education/Training Program; PCP Student in an Organized Health Care Education/Training Program; Referring Provider Student in an Organized Health Care Education/Training Program; Visit Provider Student in an Organized Health Care Education/Training Program
DX: Z12.39 Encounter for other screening for malignant neoplasm of breast (principal); Z91.89 Other specified personal risk factors, not elsewhere classified; Z80.3 Family history of malignant neoplasm of breast; R92.313 Mammographic fatty tissue density, bilateral breasts
CPT/HCPCS: 77049; A9579

== ENCOUNTER 2025-08-13 15:17 | Emergency (ER) | payer OTHER, SELFPAY ==
[2025-08-13] VITALS (10 sets, daily range): BP systolic 114–172; BP diastolic 67–96; PULSE 73–97; RESP 15–34; O2SAT 97–100; BMI 27.7
--- NOTE | 2025-08-13 15:33 | DI.CT.S_ITS ---
PROCEDURE: CT HEAD/BRAIN WO CON INDICATIONS: CARLSON for several days, elevated BP per patient. TECHNIQUE: Noncontrast 4.5 mm thick angled axial sections acquired from the foramen magnum to the vertex, with coronal and sagittal reformats. For radiation dose reduction, the following was used: automated exposure control, adjustment of mA and/or kV according to patient size. COMPARISON: [facility], CR, XR CHEST 1V, 08/13/2025, 15:36. [facility], CT, CT HEAD/BRAIN WO CON, 08/26/2021, 0:22. FINDINGS: Image quality: Diagnostic. CSF spaces: Basal cisterns are patent. No extra-axial fluid collections. Ventricles are normal in size and shape. Brain: No midline shift. No intracranial mass effect or hemorrhage. Diaz- white matter interface is normal. Skull and face: Calvarium and visualized facial bones are intact, without suspicious lesions. Sinuses: Focal moderate mucosal thickening can be seen in the posterior maxillary sinus. Paranasal sinuses otherwise relatively clear. No abnormal fluid is seen within the mastoid air cells. IMPRESSION: Unremarkable intracranial study, without an imaging explanation found for the patient's presenting history of headache. No acute intracranial hemorrhage is seen. To the limits of this noncontrast study, no findings of intracranial masses or mass effect can be seen. Dictated by: Rodney Shearer M.D. on 08/13/2025 at 15:36 Approved by: Rodney Shearer M.D. on 08/13/2025 at 15:38
--- NOTE | 2025-08-13 15:34 | DI.RAD.S_ITS ---
PROCEDURE: XR CHEST 1V INDICATIONS: CARLSON, blurred vison. TECHNIQUE: One view of the chest was acquired. COMPARISON: [facility], CR, XR CHEST 1V, 01/29/2024, 19:00. [facility], CR, XR CHEST 1V, 01/17/2024, 17:17. FINDINGS: Surgical changes and devices: None. Lungs and pleura: Lungs are clear. No pleural effusions or pneumothorax. Mediastinum: Mediastinal contours appear normal. Heart size is normal. Bones and chest wall: No suspicious bony lesions. Overlying soft tissues appear unremarkable. IMPRESSION: No acute cardiopulmonary abnormality is seen. Dictated by: Logan Diggs M.D. on 08/13/2025 at 16:55 Approved by: Logan Diggs M.D. on 08/13/2025 at 16:55
--- NOTE | 2025-08-13 15:34 | EKG_ITS ---
[address] [address] Test Date: 2025-08-13 Pat Name: Marissa Das Department: Room: Gender: Female Patient Manager: PARTHA : 1970 Requested By: Order Number: [id number] Reading MD: Steven White MD Measurements Intervals [place] Rate: 88 P: 49 NM: 138 QRS: 2 QRSD: 94 T: 37 QT: 378 QTc: 457 Interpretive Statements Normal sinus rhythm Low voltage QRS Cannot rule out Anterior infarct , age undetermined Electronically Signed On 08-13-2025 17:05:37 PST by Steven White MD
--- NOTE | 2025-08-13 15:36 | ED_ITS ---
HPI - General Adult General Chief complaint: Hypertension Stated complaint: CARLSON blurred vision 151/96 BP sent by PCP Time Seen by Provider: 08/13/25 15:32 Source: patient, RN notes reviewed and old records reviewed Mode of arrival: Ambulatory Limitations: no limitations History of Present Illness HPI narrative: 55-year-old female history of hypertension who complains of headache that started over the weekend patient states she woke up with it it is started out fairly mild and has been gradually increased. She states it has been fairly persistent. She denies fevers. She notes she has a little bit of congestive symptoms earlier in the week but that is improved. She denies any double vision but that has noticed some slight blurriness to her vision. She can still see normally. She denies chest pain or shortness of breath. No nausea or vomiting. Patient denies any dysuria urgency or frequency. No constipation she has had some mild diarrhea. She denies any numbness, tingling or weakness of extremities, no difficulty with movements, no changes to speech. No syncope. She states headache is quite severe now. She had Motrin at midnight overnight, she had acetaminophen yesterday she has not taken anything for her headache today. She reports history of hip surgery in December 2022 with a hip revision in November of 2024. She is allergic to citalopram. States home medications are lisinopril, sertraline, bupropion, hydroxyzine and PRN oxycodone. No tobacco, occasional alcohol, uses marijuana denies recreational drugs. She presents with a log of her blood pressure is over the past week her maximum systolic has been 150s she has ranged from the 120s to 150 range. She states she reached out to her primary care physician who encouraged her to come to the ER. Related Data Previous Rx's ?Medication ?Instructions ?Recorded Disabled Parking #1 ea 10/23/24 methocarbamol 500 mg tablet 500 mg PO TID #90 tabs lisinopril 5 mg tablet 5 mg PO DAILY #90 tabs 04/02 meloxicam 15 mg tablet 15 mg PO DAILY #90 tabs 03/31 04/24 sertraline 50 mg tablet 50 mg PO DAILY #30 tabs 05/25 bupropion HCl 150 mg 24 hr tablet, 150 mg PO QAM #30 t abs 07/07/25 extended release oxycodone 5 mg tablet 5 mg PO TID PRN pain #90 tab s 07/08/25 duloxetine 20 mg capsule,delayed 20 mg PO DAILY #30 ca ps 07/15/25 release hydroxyzine pamoate 25 mg capsule 50 mg (2 x 25 mg) PO BEDTIME #60 07/15/25 caps Allergies Allergy/AdvReac Type Severity Reaction Status Date / Time citalopram (CITALOPRAM) AdvReac Mild Migraines Verified 07/15/25 09:17 Review of Systems Review of Systems ROS Unobtainable: All systems reviewed & are unremarkable except as noted in HPI and below Patient History Medical History Radial tunnel syndrome (04/25/11) Right elbow pain (04/25/11) Obesity, morbid (more than 100 lbs over ideal weight or BMI > 40) (04/25/11) Essential hypertension Overweight (BMI 25.0-29.9) Generalized anxiety disorder Arm pain, right Neck pain Pancreatitis (2005) Chronic headaches Migraines CTS (carpal tunnel syndrome) (2000) Chronic back pain (1999) Scoliosis (1998) Depression (2004) Dysfunctional uterine bleeding Surgical History Anesthesia complication Status post endometrial ablation (08/2013) History of surgery on arm (06/2010) Status post carpal tunnel release (03/2008) Status post subacromial decompression (1999) Status post hysterectomy with oophorectomy (01/2014) Status post tubal ligation (12/2004) Status post laparoscopic cholecystectomy (2004) Family History Father Age: 91 Hypertension Cancer Sister Breast cancer Grandmother Age: 94 Breast cancer Mother Age: 84 Stroke Hypertension Hyperlipidemia Osteoporosis Grandmother Breast cancer H/O bilateral mastectomy Family/Other Breast cancer Social History marital status: household members: family and children occupational status: employed Smoking Status: Never smoker alcohol intake frequency: a few times a month Exam Narrative Exam Narrative: GEN: well nourished, well appearing, alert and oriented x 3, patient appears to be in mild distress. HEENT: Atraumatic, pupils are equal round reactive to light, extraocular movements are intact, nares are clear, TMs are clear with no fluid, there is no conjunctival pallor. Throat is clear without any exudates, erythema, tonsillar enlargement or uvular deviation, patient is nontender over the forehead and maxillary sinuses. No menigeal findings. HEART: Regular rate and rhythm without murmur, clicks, rubs. No carotid bruits, pulses are equal in upper and lower extremities LUNGS:Lungs clear to auscultation, no wheezes, rales, crackles, chest moves symmetrically ABD:bowel sounds normal, soft, non-tender, no guarding, rebound, rigidity, no masses noted, no hepatosplenomegaly :No CVA tenderness MSCL: Non-tender, no muscle atrophy, muscles strength 5/5 upper and lower extremities, full range of motion, normal gait NEURO:CN 2-12 intact, sensation normal. Initial Vital Signs Initial Vital Signs: Vital Signs Pulse Oximetry 99 08/13/25 15:27 Course Orders Ordered: ED Orders 08/13/25 15:33 CT head/brain wo con Stat 08/13/25 15:34 XR chest 1V Stat Complete Blood Count AUTO DIFF Stat Comprehensive Metabolic Panel Stat Lipase Stat Magnesium Stat NT-proBNP (BNP-Adult 18+) Stat Troponin I Stat EKG-12 Lead Stat Discontinued Medications Sodium Chloride (Normal Saline 0.9%) 1,000 mls @ 1,000 mls/hr IV BOLUS ONE Stop: 08/13/25 16:41 Last Infusion: 08/13/25 16:41 Dose: 1,000 mls/hr Ketorolac Tromethamine (Ketorolac 30 Mg/Ml Vial) 15 mg IV NOW ONE Stop: 08/13/25 17:18 Last Admin: 08/13/25 17:21 Dose: 15 mg Vital Signs Vital signs: Vital Signs - 8 hr 08/13/25 15:27 08/13/25 15:28 08/13/25 15:28 Pulse Rate 97 H Respiratory Rate 34 H Blood Pressure 172/95 H Pulse Oximetry 99 97 Oxygen Delivery Method 08/13/25 15:29 08/13/25 15:30 08/13/25 15:30 Pulse Rate 94 H 92 H Respiratory Rate 18 18 Blood Pressure 172/95 H 150/96 H Pulse Oximetry 99 100 Oxygen Delivery Method Room Air 08/13/25 16:00 08/13/25 16:30 08/13/25 17:00 Pulse Rate 84 80 75 Respiratory Rate 15 21 18 Blood Pressure Pulse Oximetry 98 99 100 Oxygen Delivery Method 08/13/25 17:17 08/13/25 17:17 08/13/25 17:30 Pulse Rate 77 Respiratory Rate 21 Blood Pressure 119/68 123/76 Pulse Oximetry 100 Oxygen Delivery Method 08/13/25 17:30 08/13/25 18:00 08/13/25 18:00 Pulse Rate 73 80 Respiratory Rate 19 24 Blood Pressure 114/67 Pulse Oximetry 99 99 Oxygen Delivery Method Medical Decision Making Lab Data 08/13/25 15:30 08/13/25 15:30 Labs: Lab Results 08/13/25 Range/Units 15:30 WBC 9.2 (4.5-11.0) X10^3/uL RBC 4.88 (4.0-5.2) X10^6/uL Hgb 13.5 (12.0-16.0) g/dL Hct 40.2 (36-46) % MCV 82.4 (80-100) fL MCH 27.7 (26-34) PG MCHC 33.6 (30-36) % RDW 13.5 (11.6-14.8) % Plt Count 338 (150-400) X10^3/uL Neut % (Auto) 62.7 (50-75) % Lymph % (Auto) 28.4 (25-40) % [place] % (Auto) 7.2 (3-14) % Eos % (Auto) 0.9 L (2-4) % Baso % (Auto) 0.8 (0-2) % Neut # (Auto) 5700 (8980-3208) /uL Lymph # (Auto) 2600 (5236-4583) /uL [place] # (Auto) 700 (0-900) /uL Eos # (Auto) 100 (0-450) /uL Baso # (Auto) 100 (0-100) /uL Sodium 141 (137-145) mmol/L Potassium 3.4 (3.4-5.1) mmol/L Chloride 104 (98-107) mmol/L Carbon Dioxide 25 (22-32) mmol/L BUN 14 (7-17) mg/dL Creatinine 0.98 (0.52-1.04) mg/dL Estimated GFR > 60 (>60) mL/min BUN/Creatinine Ratio 14.3 (6-22) Glucose 106 H (70-99) mg/dL Calcium 9.7 (8.4-10.2) mg/dL Magnesium 2.0 (1.6-2.3) mg/dL Total Bilirubin 0.6 (0.2-1.3) mg/dL AST 37 H (14-36) IU/L ALT 32 (<35) IU/L Alkaline Phosphatase 97 (38-126) U/L Troponin I < 0.012 (0.01-0.034) ng/mL NT-Pro-B Natriuret Pep < 20 (<125) pg/mL Total Protein 8.6 H (6.3-8.2) g/dL Albumin 4.9 (3.5-5.0) g/dL Globulin 3.7 (1.7-4.1) g/dL Albumin/Globulin Ratio 1.3 (1.0-2.8) Lipase 104 (23-300) U/L [facility] Narrative Medical decision making narrative: EKG shows sinus rhythm rate 88 ID 138 QRS of [address]-elevation depression Labs labs show normal CBC, white count hemoglobin, electrolytes BUN and creatinine normal glucose is 106 AST is 37 otherwise normal bilirubin ALT and alk-phos. Lipase is 104, troponins less than 0.012 with a BNP of less than 20. Chest x-ray, no acute cardiopulmonary abnormality. Head CT, unremarkable intracranial study, no acute intracranial hemorrhage. No mass effect. Patient continues to be little bit hypertensive here in the department. Patient had fluids, Toradol patient is feeling improved. Repeat blood pressure is 114/67. Discussed with the patient she is going to continue to keep a log of her blood pressure she will share this with her physician she has not upcoming appointment in the next week. Discussed return precautions all questions answered. Discharge Plan Departure Patient Disposition: Home Clinical Impression: Headache Instructions: DI for High Blood Pressure Activity Restrictions/Additional Instructions: Follow up with your primary care, please share your log of your blood pressures they can adjust your medication as needed. Continue your home medications. You can take acetaminophen up to a 1000 mg every 6 hours and/or ibuprofen up to 600 mg every 6 hours as needed for pain. Please return if you have fevers, rapidly worsening or severe headaches, persistent vomiting, any new numbness tingling or weakness, difficulty with speech, passing out, new chest pain or shortness of breath or other new or concerning changes. Prescriptions: No Action lisinopril 5 mg tablet 5 mg PO DAILY Qty: 90 3RF hydroxyzine pamoate 25 mg capsule 50 mg PO BEDTIME Qty: 60 3RF duloxetine 20 mg capsule,delayed release(DR/EC) 20 mg PO DAILY Qty: 30 0RF (DME) Disabled Parking See Rx Instructions .ROUTE .MEDSUPPLY Qty: 1 0RF Rx Instructions: I find this patient to be medically disabled and qualified for DISABLED PARKING as indicated, and signed, on the ACCOMPANYING DISABLED PARKING APPLICATION for Individuals. methocarbamol 500 mg tablet 500 mg PO TID Qty: 90 0RF sertraline 50 mg tablet 50 mg PO DAILY Qty: 30 3RF bupropion HCl 150 mg tablet extended release 24 hr 150 mg PO QAM Qty: 30 3RF oxycodone 5 mg tablet 5 mg PO TID PRN (Reason: pain) Qty: 90 0RF meloxicam 15 mg tablet 15 mg PO DAILY Qty: 90 0RF Referrals: Vernell Blanco MD [Primary Care Provider, Family Practice] Stand Alone Forms: Patient Portal/API
[2025-08-13 15:40] LABS: Add Manual Diff / Slide Review NO; Hematocrit 40.2 % (36-46); Hemoglobin 13.5 g/dL (12.0-16.0); Lymphocytes Absolute Auto 2600 /uL (1100-4500); Mean Corpuscular HGB Conc 33.6 % (30-36); Mean Corpuscular Hemoglobin 27.7 PG (26-34); Mean Corpuscular Volume 82.4 fL (80-100); Platelet Count 338 X10^3/uL (150-400)
[2025-08-13 16:01] LABS: Alanine Aminotransferase 32 IU/L (<35); Albumin 4.9 g/dL (3.5-5.0); Albumin Globulin Ratio 1.3 (1.0-2.8); Alkaline Phosphatase 97 U/L (38-126); Blood Urea Nitrogen 14 mg/dL (7-17); Calcium 9.7 mg/dL (8.4-10.2); Carbon Dioxide 25 mmol/L (22-32); Chloride 104 mmol/L (98-107); Estimated Glomerular Filt Rate > 60 mL/min (>60); Globulin 3.7 g/dL (1.7-4.1); Glucose 106 mg/dL (70-99); HEMOLYSIS < 15 (0-50); Lipase 104 U/L (23-300); Magnesium 2.0 mg/dL (1.6-2.3); Potassium 3.4 mmol/L (3.4-5.1); Sodium 141 mmol/L (137-145); Total Protein 8.6 g/dL (6.3-8.2)
[2025-08-13] MEDS: SODIUM CHLORIDE 0.9% 1,000 ML 1000 ML IV (16:08)
[2025-08-13 16:13] LABS: NT-proBNP (BNP-Adult 18+) < 20 pg/mL (<125); Troponin I < 0.012 ng/mL (0.01-0.034)
[2025-08-13] MEDS: KETOROLAC 30 MG/ML VIAL 15 MG IV (17:21)
== END 2025-08-13 18:31 | disposition home or self-care (01) ==
PROVIDERS: Emergency Provider Emergency Medicine; Family Provider Student in an Organized Health Care Education/Training Program; PCP Student in an Organized Health Care Education/Training Program
DX: R51.9 Headache, unspecified (principal)
CPT/HCPCS: 36415; 70450; 71045; 80053; 83690; 83735; 83880; 84484; 85025; 93005; 96361; 96374; 99284; J1885; J7030

== ENCOUNTER 2025-08-14 16:08 | Emergency (ER) | payer OTHER, SELFPAY ==
[2025-08-14 16:28] VITALS: BP 148/80; PULSE 93; RESP 18; TEMP 36.4; O2SAT 98; BMI 27.7
--- NOTE | 2025-08-14 16:34 | DI.RAD.S_ITS ---
PROCEDURE: XR CHEST 1V INDICATIONS: Chest Pain TECHNIQUE: One view of the chest was acquired. COMPARISON: [facility], CR, XR CHEST 1V, 08/13/2025, 15:36. FINDINGS: Surgical changes and devices: Apparent cholecystectomy clips are faintly seen. Lungs and pleura: An incomplete inspiratory result is noted, causing a crowded appearance to the lung markings. No focal infiltrates are seen. No pneumothorax or significant pleural effusions are seen. Mediastinum: Mediastinal contours appear normal. Heart size is normal. Bones and chest wall: No suspicious bony lesions. Age-appropriate bony degenerative changes are seen. Overlying soft tissues appear unremarkable. IMPRESSION: Low lung volumes, without an acute abnormality seen by plain film. Postoperative and degenerative changes are seen. Dictated by: Rodney Shearer M.D. on 08/14/2025 at 16:38 Approved by: Rodney Shearer M.D. on 08/14/2025 at 16:39
--- NOTE | 2025-08-14 16:34 | EKG_ITS ---
[address] [address] Test Date: 2025-08-14 Pat Name: Marissa Das Department: [facility] Room: Gender: Female Nurse Care Manager: HERMILA : 1970 Requested By: Order Number: [id number] Reading MD: Steven White MD Measurements Intervals [place] Rate: 83 P: 57 RI: 136 QRS: 12 QRSD: 90 T: 38 QT: 378 QTc: 444 Interpretive Statements Normal sinus rhythm Low voltage QRS Cannot rule out Anterior infarct , age undetermined Electronically Signed On 08-14-2025 16:42:51 PST by Steven White MD
[2025-08-14 16:53] LABS: Add Manual Diff / Slide Review NO; Hematocrit 35.6 % (36-46); Hemoglobin 12.3 g/dL (12.0-16.0); Lymphocytes Absolute Auto 2200 /uL (1100-4500); Mean Corpuscular HGB Conc 34.4 % (30-36); Mean Corpuscular Hemoglobin 28.4 PG (26-34); Mean Corpuscular Volume 82.6 fL (80-100); Platelet Count 291 X10^3/uL (150-400)
--- NOTE | 2025-08-14 17:00 | ED.CHESTPAIN ---
HPI - Chest Pain General Chief Complaint: Chest Pain Stated Complaint: elevated BP, dizzy, chest soreness Time Seen by Provider: 08/14/25 16:59 Source: patient Mode of arrival: Ambulatory Limitations: no limitations History of Present Illness HPI narrative: Patient is a 55-year-old female with a past medical history of hypertension, comes into the ED from home for evaluation of persistent headache, high blood pressure, was seen here yesterday for the same. States that she has been having some slight blurry vision secondary to these symptoms. She denies head strike not on any blood thinners, patient did have scan of her head at that time with out any acute findings, patient improved after fluids Toradol. EKG was nonischemic in nature, she presents due to the fact that symptoms have not improved/gone away. She states that she was also having a little dizziness not currently having that now at time of evaluation NIH of 0. He also states that she felt palpitations when this all started so came back into the ED. she states that she did try to get in contact with the primary care doctor but they never responded. Related Data Previous Rx's ?Medication ?Instructions ?Recorded Disabled Parking #1 ea 10/23/24 methocarbamol 500 mg tablet 500 mg PO TID #90 tabs 10/23/24 lisinopril 5 mg tablet 5 mg PO DAILY #90 tabs 04/02/25 meloxicam 15 mg tablet 15 mg PO DAILY #90 tabs 04/16/25 sertraline 50 mg tablet 50 mg PO DAILY #30 tabs 05/08/25 bupropion HCl 150 mg 24 hr tablet, 150 mg PO QAM #30 tabs 07/07/25 extended release oxycodone 5 mg tablet 5 mg PO TID PRN pain #90 tabs 07/08/25 duloxetine 20 mg capsule,delayed 20 mg PO DAILY #30 caps 07/15/25 release hydroxyzine pamoate 25 mg capsule 50 mg (2 x 25 mg) PO BEDTIME #60 07/15/25 caps ecqfjiiuoy-cyueljuutkhyh-scvpqboi 1 cap PO Q8H PRN pain 3 days #9 08/14/25 50 mg-300 mg-40 mg capsule caps (Fioricet) Allergies Allergy/AdvReac Type Severity Reaction Status Date / Time citalopram (CITALOPRAM) AdvReac Mild Migraines Verified 07/15/25 09:17 Review of Systems Review of Systems Narrative: General: Denies fever, chills, weight loss HEENT: Positive headache, denies eye drainage, eye irritation, head trauma, sore throat, voice change Cardiovascular: Denies any chest pain, palpitations, tachycardia Respiratory: Denies any shortness of breath, cough, wheeze, stridor GI/: Denies any abdominal pain, nausea, vomiting, diarrhea, bright red blood per rectum, melanotic stools, urinary frequency, urinary retention, dysuria, hematuria MSK: Denies any joint pain, muscle pains, swelling Skin: Denies any rashes, lesions, discoloration Neuro: Positive headache, lightheadedness, dizziness, denies fainting, weakness Psych: Denies SI/HI Patient History Medical History Radial tunnel syndrome (04/25/11) Right elbow pain (04/25/11) Obesity, morbid (more than 100 lbs over ideal weight or BMI > 40) (04/25/11) Essential hypertension Overweight (BMI 25.0-29.9) Generalized anxiety disorder Arm pain, right Neck pain Pancreatitis (2005) Chronic headaches Migraines CTS (carpal tunnel syndrome) (2000) Chronic back pain (1999) Scoliosis (1998) Depression (2004) Dysfunctional uterine bleeding Surgical History Anesthesia complication Status post endometrial ablation (08/2013) History of surgery on arm (06/2010) Status post carpal tunnel release (03/2008) Status post subacromial decompression (1999) Status post hysterectomy with oophorectomy (01/2014) Status post tubal ligation (12/2004) Status post laparoscopic cholecystectomy (2004) Family History Father Age: 91 Hypertension Cancer Sister Breast cancer Grandmother Age: 94 Breast cancer Mother Age: 84 Stroke Hypertension Hyperlipidemia Osteoporosis Grandmother Breast cancer H/O bilateral mastectomy Family/Other Breast cancer Social History marital status: household members: family and children occupational status: employed alcohol intake frequency: a few times a month Exam Narrative Exam Narrative: General: Cooperative, well-developed, not in acute distress HEENT: Normocephalic, atraumatic, PERRLA, normal sclera, eyelids normal Neck: Active full range of motion, atraumatic Chest: Normal to inspection, negative crepitus, no overlying erythema ecchymosis Respiratory: Normal respiratory effort, not in acute respiratory distress, clear to auscultation bilaterally negative cough, wheeze, tachypnea, rhonchi, rales Cardiology: Regular rate rhythm negative gallop, murmur, rubs GI/: No tenderness to palpation, soft, non rigid, normal to inspection, exam deferred MSK: Full active range of motion in all 4 extremities, atraumatic, no tenderness to palpation of any bony prominences Skin: No rashes or lesions noted Neuro: NIH of 0, Alert awake oriented x3, moves all 4 extremities spontaneously, cranial nerves intact, able to answer all questions appropriately follows commands appropriately Psych: Cooperative, negative suicidal or homicidal ideations Initial Vital Signs Initial Vital Signs: Vital Signs Temperature 97.5 F L 08/14/25 16:28 Pulse Rate 93 H 08/14/25 16:28 Respiratory Rate 18 08/14/25 16:28 Blood Pressure 148/80 H 08/14/25 16:28 Pulse Oximetry 98 08/14/25 16:28 Oxygen Delivery Method Room Air 08/14/25 16:28 Course Orders Ordered: ED Orders 08/14/25 16:34 XR chest 1V Stat EKG-12 Lead Stat 08/14/25 16:41 Complete Blood Count AUTO DIFF Stat Comprehensive Metabolic Panel Stat Lipase Stat Magnesium Stat NT-proBNP (BNP-Adult 18+) Stat PTT Partial Thromboplastin Joesph Stat Prothrombin Time INR Stat Troponin & CK Cardiac Panel Stat 08/14/25 17:09 CT angio head and neck Stat CT head/brain wo con Stat Discontinued Medications Dexamethasone (Dexamethasone 10 Mg/Ml Vial) 10 mg IV NOW ONE Stop: 08/14/25 17:08 Last Admin: 08/14/25 17:27 Dose: 10 mg Documented By: EB Diphenhydramine HCl (Diphenhydramine 50 Mg/Ml Vial) 25 mg IV NOW ONE Stop: 08/14/25 17:08 Last Admin: 08/14/25 17:27 Dose: 25 mg Documented By: EB Sodium Chloride (Normal Saline 0.9%) 1,000 mls @ 1,000 mls/hr IV BOLUS ONE Stop: 08/14/25 18:06 Last Admin: 08/14/25 17:27 Dose: 1,000 mls/hr Documented By: EB Metoclopramide HCl (Metoclopramide 10 Mg/2 Ml Inj) 10 mg IV NOW ONE Stop: 08/14/25 17:08 Last Admin: 08/14/25 17:27 Dose: 10 mg Documented By: MARY Vital Signs Vital signs: Vital Signs - 8 hr 08/14/25 16:28 08/14/25 17:51 Temperature 97.5 F L Pulse Rate 93 H 76 Respiratory Rate 18 18 Blood Pressure 148/80 H 139/76 Pulse Oximetry 98 99 Oxygen Delivery Method Room Air Room Air MDM - Chest Pain Lab Data 08/14/25 16:41 08/14/25 16:41 Labs: Lab Results 08/14/25 Range/Units 16:41 WBC 7.1 (4.5-11.0) X10^3/uL RBC 4.31 (4.0-5.2) X10^6/uL Hgb 12.3 (12.0-16.0) g/dL Hct 35.6 L (36-46) % MCV 82.6 (80-100) fL MCH 28.4 (26-34) PG MCHC 34.4 (30-36) % RDW 13.3 (11.6-14.8) % Plt Count 291 (150-400) X10^3/uL Neut % (Auto) 58.7 (50-75) % Lymph % (Auto) 31.1 (25-40) % [place] % (Auto) 6.9 (3-14) % Eos % (Auto) 2.0 (2-4) % Baso % (Auto) 1.3 (0-2) % Neut # (Auto) 4200 (6673-9924) /uL Lymph # (Auto) 2200 (0637-6604) /uL [place] # (Auto) 500 (0-900) /uL Eos # (Auto) 100 (0-450) /uL Baso # (Auto) 100 (0-100) /uL PT 11.0 (9.4-12.5) SECONDS INR 1.0 (0.9-1.3) APTT 30 (25.1-36.5) SECONDS Sodium 143 (137-145) mmol/L Potassium 3.6 (3.4-5.1) mmol/L Chloride 110 H (98-107) mmol/L Carbon Dioxide 24 (22-32) mmol/L BUN 12 (7-17) mg/dL Creatinine 0.76 (0.52-1.04) mg/dL Estimated GFR > 60 (>60) mL/min BUN/Creatinine Ratio 15.8 (6-22) Glucose 101 H (70-99) mg/dL Calcium 9.5 (8.4-10.2) mg/dL Magnesium 1.9 (1.6-2.3) mg/dL Total Bilirubin 0.3 (0.2-1.3) mg/dL AST 34 (14-36) IU/L ALT 28 (<35) IU/L Alkaline Phosphatase 105 (38-126) U/L Total Creatine Kinase 131 (30-135) U/L Troponin I < 0.012 (0.01-0.034) ng/mL NT-Pro-B Natriuret Pep 47 (<125) pg/mL Total Protein 8.0 (6.3-8.2) g/dL Albumin 4.5 (3.5-5.0) g/dL Globulin 3.5 (1.7-4.1) g/dL Albumin/Globulin Ratio 1.3 (1.0-2.8) Lipase 135 (23-300) U/L MDM Narrative Medical decision making narrative: 55-year-old female history of hypertension coming into the ED from home for evaluation of headache dizziness palpitations, states it has been ongoing persistent for the past few days, was here yesterday for the same, had a negative workup including a CT scan of the head. She presents today due to persistent headache persistent elevated blood pressure and dizziness. At time of my evaluation NIH of 0, she states that her blood pressure was as high as systolic 160, she states that she tried calling her primary care doctor/leaving a message but they did not respond so came into the ED. patient had repeat imaging performed here did add CT angio head and neck without any acute findings, patient is troponin negative, chest x-ray without any acute cardiopulmonary abnormality, lab work unremarkable, patient did have improvement of headache after administration of migraine cocktail, she was instructed to follow up with primary care doctor in regards to her blood pressure, she verbalized understanding agrees with the being discharged home with outpatient follow up Discharge Plan Departure Patient Disposition: Home Clinical Impression: Headache Instructions: DI for Migraine Activity Restrictions/Additional Instructions: Please follow up with the primary care doctor for continued evaluation of your high blood pressure Please read the discharge instructions sheet carefully and bring all papers to all doctor follow-up visits, as it may contain information that your doctor may want to see. Disease processes change and evolve, if your symptoms worsen or if you develop any new symptoms that are concerning to you please return for evaluation. Your evaluation today does not show any evidence of any life-threatening/serious illnesses requiring admission to the hospital or surgery. Please follow-up with your doctor for re-evaluation in approximately 1 day. Seek immediate medical attention for any worrisome symptoms. *If you do not have a primary care provider please contact the [facility] Resource line at [phone]. They will ask some questions about your medical history and help get you set up with a doctor in the community. Prescriptions: New svearyfjtx-ltztinaelbbbu-puiq [Fioricet] 50-300-40 mg capsule 1 cap PO Q8H PRN (Reason: pain) 3 Days Qty: 9 0RF No Action lisinopril 5 mg tablet 5 mg PO DAILY Qty: 90 3RF hydroxyzine pamoate 25 mg capsule 50 mg PO BEDTIME Qty: 60 3RF duloxetine 20 mg capsule,delayed release(DR/EC) 20 mg PO DAILY Qty: 30 0RF (DME) Disabled Parking See Rx Instructions .ROUTE .MEDSUPPLY Qty: 1 0RF Rx Instructions: I find this patient to be medically disabled and qualified for DISABLED PARKING as indicated, and signed, on the ACCOMPANYING DISABLED PARKING APPLICATION for Individuals. methocarbamol 500 mg tablet 500 mg PO TID Qty: 90 0RF sertraline 50 mg tablet 50 mg PO DAILY Qty: 30 3RF bupropion HCl 150 mg tablet extended release 24 hr 150 mg PO QAM Qty: 30 3RF oxycodone 5 mg tablet 5 mg PO TID PRN (Reason: pain) Qty: 90 0RF meloxicam 15 mg tablet 15 mg PO DAILY Qty: 90 0RF Referrals: Vernell Blanco MD [Primary Care Provider, Family Practice] Stand Alone Forms: Patient Portal/API
[2025-08-14 17:04] LABS: INR 1.0 (0.9-1.3); Prothrombin Time 11.0 SECONDS (9.4-12.5)
[2025-08-14 17:07] LABS: PTT Partial Thromboplastin Tim 30 SECONDS (25.1-36.5)
[2025-08-14 17:08] LABS: Alanine Aminotransferase 28 IU/L (<35); Albumin 4.5 g/dL (3.5-5.0); Albumin Globulin Ratio 1.3 (1.0-2.8); Alkaline Phosphatase 105 U/L (38-126); Blood Urea Nitrogen 12 mg/dL (7-17); Calcium 9.5 mg/dL (8.4-10.2); Carbon Dioxide 24 mmol/L (22-32); Chloride 110 mmol/L (98-107); Creatine Kinase 131 U/L (30-135); Estimated Glomerular Filt Rate > 60 mL/min (>60); Globulin 3.5 g/dL (1.7-4.1); Glucose 101 mg/dL (70-99); HEMOLYSIS < 15 (0-50); Lipase 135 U/L (23-300); Magnesium 1.9 mg/dL (1.6-2.3); Potassium 3.6 mmol/L (3.4-5.1); Sodium 143 mmol/L (137-145); Total Protein 8.0 g/dL (6.3-8.2)
--- NOTE | 2025-08-14 17:09 | DI.CT.S_ITS ---
PROCEDURE: CT ANGIO HEAD AND NECK INDICATIONS: [place] and dizziness TECHNIQUE: After the administration of intravenous contrast, 1 mm thick sections acquired from the aortic arch through the [place] of [place]. 3-dimensional uuyzpza-bfnskjcoq-izubxtslqs (MIP) and/or volume rendering reformats were acquired of the central intracranial vasculature and neck separately. For radiation dose reduction, the following was used: automated exposure control, adjustment of mA and/or kV according to patient size. COMPARISON: [facility], CT, CT HEAD/BRAIN WO CON, 08/14/2025, 17:35. FINDINGS: Image quality: Diagnostic. Cerebral CT Angiogram: Internal carotid arteries: No acute findings. Intracranial ICA are patent with no significant stenosis. No occlusion. No aneurysm. Anterior cerebral arteries: Right A1 JACOBY is dominant. No significant stenosis. No occlusion. No aneurysm. Middle cerebral arteries: Unremarkable. No significant stenosis. No occlusion. No aneurysm. Posterior cerebral arteries: origin of the left ACTIVITY AID versus is dominant posterior communicating artery. No significant stenosis. No occlusion. No aneurysm. Basilar artery: Unremarkable. No significant stenosis. No occlusion. No aneurysm. Vertebral arteries: Unremarkable as visualized. Dural venous sinuses: Unremarkable given phase of enhancement. Other: Arterial phase appearance of the brain parenchyma is unremarkable. Neck CT Angiogram: Internal carotid arteries: Unremarkable. No significant stenosis. No dissection or occlusion. Common carotid arteries: Unremarkable. No significant stenosis. No dissection or occlusion. External carotid arteries: Unremarkable. No occlusion. Vertebral arteries: Unremarkable. No significant stenosis. No dissection or occlusion. Aortic Arch and Mediastinum: Partially visualized aortic arch unremarkable without evidence of aneurysm. Origins of the great vessels unremarkable. Other: Arterial phase soft tissues of the neck and chest are unremarkable. Bones: No suspicious osseous lesion. 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 IMPRESSION: No significant intracranial arterial abnormality is seen. No significant abnormality is seen within the arteries of the neck. Any quantitative measurements of stenosis were performed using NASCET criteria. Dictated by: Magan Terrell M.D. on 08/14/2025 at 18:42 Approved by: Magan Terrell M.D. on 08/14/2025 at 18:49
--- NOTE | 2025-08-14 17:09 | DI.CT.S_ITS ---
PROCEDURE: CT HEAD/BRAIN WO CON INDICATIONS: headache dizziness TECHNIQUE: Noncontrast 4.5 mm thick angled axial sections acquired from the foramen magnum to the vertex, with coronal and sagittal reformats. For radiation dose reduction, the following was used: automated exposure control, adjustment of mA and/or kV according to patient size. COMPARISON: [facility], CT, CT HEAD/BRAIN WO CON, 08/26/2021, 0:22. [facility], CT, CT HEAD/BRAIN WO CON, 08/13/2025, 15:52. FINDINGS: Image quality: Diagnostic. CSF spaces: Basal cisterns are patent. No extra-axial fluid collections. Ventricles are normal in size and shape. Brain: No midline shift. No intracranial mass effect or hemorrhage. Diaz- white matter interface is normal. Skull and face: Calvarium and visualized facial bones are intact, without suspicious lesions. Sinuses: Mucosal thickening at the left maxillary sinus. The other paranasal sinuses are clear. The mastoids are clear. IMPRESSION: No acute intracranial pathology. No interval change appreciated. Dictated by: Magan Terrell M.D. on 08/14/2025 at 18:39 Approved by: Magan Terrell M.D. on 08/14/2025 at 18:41
[2025-08-14 17:20] LABS: NT-proBNP (BNP-Adult 18+) 47 pg/mL (<125); Troponin I < 0.012 ng/mL (0.01-0.034)
[2025-08-14] MEDS: SODIUM CHLORIDE 0.9% 1,000 ML 1000 ML IV (17:27)
[2025-08-14] MEDS: METOCLOPRAMIDE 10 MG/2 ML INJ IV (17:27)
[2025-08-14] MEDS: diphenhydrAMINE 50 MG/ML VIAL 25 MG IV (17:27)
[2025-08-14 17:51] VITALS: BP 139/76; PULSE 76; RESP 18; O2SAT 99
[2025-08-14 19:30] VITALS: BP 139/82; PULSE 76; RESP 15; TEMP 37.7; O2SAT 98
== END 2025-08-14 19:30 | disposition home or self-care (01) ==
PROVIDERS: Physician Assistant; Emergency Provider Student in an Organized Health Care Education/Training Program; Family Provider Student in an Organized Health Care Education/Training Program; PCP Student in an Organized Health Care Education/Training Program
DX: R51.9 Headache, unspecified (principal); I10 Essential (primary) hypertension; R47.81 Slurred speech
CPT/HCPCS: 70450; 70496; 70498; 71045; 80053; 82550; 83690; 83735; 83880; 84484; 85025; 85610; 85730; 93005; 96361; 96374; 96375; 99283; 99284; J1100; J1200; J2765; J7030; Q9967